=== PATIENT | male | born 1985 | race Caucasian/White ===

== ENCOUNTER 2016-06-29 10:42 | Inpatient (IN) | payer OTHER ==
[~2016-06-29] VITALS: Ht 162.6 cm; Wt 57.0 kg
[~2016-06-29 10:42] MED LIST: ASCO500 PO; CARB100C PO; CLEAPOW6 PO; FISH120014 PO; GEOD80CA PO; KLON2TAB PO; LORA-392 PO; LORA-474 PO; PRIL40CA PO; RANI150T PO; SERT100 PO; SIME1CHW10 CHEW; TAB-TAB PO; TYLE500T PO; [UNRECOGNIZED DRUG - OTHER] PO
[2016-06-29] MEDS ORDERED: LORazepam 2 MG/ML VIAL IM ONE (10:45)
[2016-06-29] MEDS ORDERED: SERT-129 PO (11:11)
[2016-06-29] MEDS ORDERED: GEOD80CA PO (11:11)
[2016-06-29] MEDS ORDERED: ZIPR40 PO (11:11)
[2016-06-29] MEDS ORDERED: MEDR10TA7 PO (11:12)
[2016-06-29 11:15] VITALS: BP 131/63; PULSE 86; RESP 20; TEMP 97.9; O2SAT 98
--- NOTE | 2016-06-29 11:18 | PD ---
HPI Chief Complaint: Psychiatric Symptoms Time Seen by Provider: 11:18 Travel History International Travel<30 days: No Contact w/Intl Traveler<30days: No Traveled to known affect area: No History of Present Illness HPI 31-year-old autistic male brought in under the [place] act after refusing to [facility] the [facility] earlier this morning. Apparently the patient became somewhat agitated and police were called. Patient was given 2 mg of Ativan IM. Patient is seen in [facility]. Patient's baseline is low functioning. Patient has no complaints of pain or other symptoms. Patient is unsure why he is here. He is not suicidal or homicidal. Patient is allergic to cow's milk, peanuts, soy, sulfa, wheat, and yeast extract. PFSH Past Medical History Bipolar Disorder: Yes Anxiety: Yes Depression: Yes Cancer: No Cardiovascular Problems: No Developmental Delay: Yes (autism) Diabetes: No Gastrointestinal Disorders: Yes (GERD) GERD: Yes Headaches: No Neurologic: Yes Psychiatric: Yes (BIPOLAR DISORDER) Immunizations Current: Yes Seizures: No Social History Alcohol Use: No Tobacco Use: No Substance Use: No (Patient denies. ) Allergies-Medications (Allergen,Severity, Reaction): Coded Allergies: Peanut Allergy (Verified Allergy, Severe, 05/26/15) Soy Protein (Verified Allergy, Severe, 05/26/15) Sulfa (Verified Allergy, Severe, 05/26/15) Wheat (Verified Allergy, Severe, 05/26/15) Yeast Extracts (Verified Allergy, Severe, 05/26/15) Uncoded Allergies: Cow's Milk (Allergy, Severe, 10/04/11) Reported Meds & Prescriptions Reported Meds & Active Scripts Active Reported Medroxyprogesterone Acetate 10 Mg Tab 20 Mg PO DAILY Start day 21 Sertraline (Sertraline HCl) 100 Mg Tab 100 Mg PO DAILY Geodon (Ziprasidone) 80 Mg Cap 80 Mg PO DAILY@1600 Geodon (Ziprasidone) 40 Mg Cap 40 Mg PO BID Multivitamin (Multivitamins) 1 Tab Tab 1 Tab PO DAILY Prilosec 40 mg cap (Omeprazole) 40 Mg Cap 40 Mg PO DAILY Klonopin (Clonazepam) 2 Mg Tab 2 Mg PO TID Acetaminophen 500 Mg Tab 500 Mg PO DIRECTED Tylenol Extra Strength 500mg - 2 capsules by mouth every 4-6 hours as needed for headache, fever or pain. If problem persists over 24 hours, call doctor immediately. [id number] N1 3,350 Nf Pow 17 Gm PO 1700 Stir and dissolve 1 capful (17gm) into 8oz cold water by mouth at suppertime for constipation. Gas Relief (Simethicone) 80 Mg Chw 160 Mg CHEW BID Gas Chewable Tabs 80mg - 2 chewables by mouth immediately after lunch and 2 chewables immediately after dinner. Review of Systems ROS Limitations: Clinical Condition, Poor Historian Except as stated in HPI: all other systems reviewed are Neg Physical Exam Narrative GENERAL: Patient appears in no acute distress although somewhat confused and agitated. SKIN: Warm and dry. No signs of trauma. HEAD: Atraumatic. Normocephalic. EYES: Pupils equal and round. No scleral icterus. No injection or drainage. ENT: No nasal bleeding or discharge. Mucous membranes pink and moist. Pharynx is normal. NECK: Trachea midline. No JVD. Neck is supple and nontender. CARDIOVASCULAR: Regular rate and rhythm. No murmurs gallops or rubs. RESPIRATORY: No accessory muscle use. Clear to auscultation. Breath sounds equal bilaterally. MUSCULOSKELETAL: Extremities without clubbing, cyanosis, or edema. No obvious deformities. NEUROLOGICAL: Awake and alert. No obvious cranial nerve deficits. Motor grossly within normal limits. Five out of 5 muscle strength in the arms and legs. Normal speech. PSYCHIATRIC: Appropriate mood and affect; insight and judgment normal. Data Data Last Documented VS Vital Signs Date Time Temp Pulse Resp B/P Pulse Ox O2 Delivery O2 Flow Rate FiO2 06/29/16 11:15 97.9 86 20 131/63 98 Orders Lorazepam Inj (Ativan Inj) (06/29/16 10:45) Diet Regular Basic (06/29/16 Lunch) Psych Screen (06/29/16 11:13) [facility] Medical Decision Making Medical Screen Exam Complete: Yes Emergency Medical Condition: Yes Differential Diagnosis Autism. Agitation. Mood disorder. Narrative Course Patient is medically stable at time of exam. Lab work is not felt necessary for medical clearance for this patient. Psychiatric evaluation recommended. Patient is medically cleared. Diagnosis Primary Impression: Medical clearance for psychiatric admission Additional Impressions: Autism Intermittent explosive disorder Condition: Stable Severo Alford Jun 29, 2016 11:18
[2016-06-29] MEDS ORDERED: HALOPERIDOL LACTATE 5 MG/ML AMP IM STA (12:08)
[2016-06-29 13:00] LABS: AUTOMATED NEUTROPHIL # 6.5 TH/MM3 (1.8-7.7); BASOPHIL % 0.2 % (0.0-2.0); EOSINOPHIL # 0.1 TH/MM3 (0-0.4); EOSINOPHIL % 0.8 % (0.0-4.0); HEMATOCRIT 40.1 % (39.0-51.0); HEMO FLAGS DIFF FINAL; LYMPH % 20.4 % (9.0-44.0); LYMPHOCYTE # 1.9 TH/MM3 (1.0-4.8); MEAN CELL VOLUME 86.6 FL (80.0-100.0); MEAN CORPUSCULAR HEMOGLOBIN 29.6 PG (27.0-34.0); MEAN CORPUSCULAR HGB CONC 34.1 % (32.0-36.0); MONO % 7.1 % (0.0-8.0); NEUT % 71.5 % (16.0-70.0); PLATELET COUNT 169 TH/MM3 (150-450); RED BLOOD COUNT 4.63 MIL/MM3 (4.50-5.90); WHITE BLOOD COUNT 9.1 TH/MM3 (4.0-11.0)
[2016-06-29 13:10] LABS: ALT (GPT) 31 U/L (12-78); ANION GAP 7 MEQ/L (5-15); AST (GOT) 20 U/L (15-37); BICARBONATE 26.3 MEQ/L (21.0-32.0); BLOOD UREA NITROGEN 8 MG/DL (7-18); CHLORIDE 111 MEQ/L (98-107); GLOMERULAR FILTRATION RATE 108 ML/MIN (>89); POTASSIUM 3.6 MEQ/L (3.5-5.1); SODIUM (NA) 144 MEQ/L (136-145)
[2016-06-29 13:12] LABS: ALKALINE PHOSPHATASE 82 U/L (45-117); TOTAL BILIRUBIN ADULT 0.4 MG/DL (0.2-1.0)
[2016-06-29] MEDS ORDERED: diphenhydrAMINE HCL 50 MG CAP PO PRN (13:45)
[2016-06-29] MEDS ORDERED: LORazepam 1 MG TAB PO PRN (13:45)
[2016-06-29] MEDS ORDERED: MAGNESIUM HYDROXIDE SUSP 30 ML CUP PO PRN (13:45)
[2016-06-29] MEDS ORDERED: LORazepam 2 MG/ML VIAL IM PRN (13:45)
[2016-06-29] MEDS: PANTOPRAZOLE SOD 40 MG DELAYED RELEASE TAB PO SCH (14:00)
[2016-06-29] MEDS ORDERED: ACETAMINOPHEN 325 MG TAB PO PRN (14:00)
[2016-06-29] MEDS ORDERED: BENZTROPINE MESYLATE 2 MG/2 ML VIAL IM PRN (14:00)
[2016-06-29] MEDS ORDERED: BENZTROPINE MESYLATE 1 MG TAB PO PRN (14:00)
[2016-06-29] MEDS ORDERED: ALUMINUM/MAGNESIUM/SIMETH 30 ML CUP PO PRN (14:00)
[2016-06-29] MEDS: ZIPRASIDONE HCL 80 MG CAP PO SCH (16:00)
[2016-06-29] MEDS: POLYETHYLENE GLYCOL 17 GM PKG PO SCH (17:00)
[2016-06-29] MEDS: clonazePAM 1 MG TAB PO SCH (18:00)
[2016-06-29 18:07] VITALS: BP 130/86; PULSE 95; RESP 18; TEMP 98.2; O2SAT 95
[2016-06-29] MEDS: ZIPRASIDONE HCL 40 MG CAP PO SCH (20:47)
[2016-06-29] MEDS: SIMETHICONE 80 MG CHEWABLE TAB CHEW SCH (20:47)
[2016-06-30 06:46] VITALS: BP 124/80; PULSE 88; RESP 16; TEMP 94.8; O2SAT 98
[2016-06-30 08:23] LABS: BLOOD, URINE NEG (NEG); COMMENT (UR) CULT NOT INDICATED; CULTURE IF INDICATED CULT NOT INDICATED; GLUCOSE,URINE NEG (NEG); KETONE, URINE NEG (NEG); NITRITE,URINE NEG (NEG); PH, URINE 7.5 (5.0-8.5); URINE COLOR YELLOW (YELLW/STRAW)
[2016-06-30 08:32] LABS: AMPHETAMINE, URINE NEG (NEG); BARBITURATES, URINE NEG (NEG); COCAINE, URINE NEG (NEG)
[2016-06-30 08:33] LABS: HDL CHOLESTEROL 61.1 MG/DL (40.0-60.0); LDL CHOLESTEROL 98 MG/DL (0-99)
[2016-06-30] MEDS: ZIPRASIDONE HCL 40 MG CAP PO SCH (08:58)
[2016-06-30] MEDS: clonazePAM 1 MG TAB PO SCH ×2 (08:58→13:00)
[2016-06-30] MEDS: PANTOPRAZOLE SOD 40 MG DELAYED RELEASE TAB PO SCH (08:59)
[2016-06-30] MEDS: SIMETHICONE 80 MG CHEWABLE TAB CHEW SCH (09:00)
[2016-06-30] MEDS ORDERED: SERTRALINE HCL 100 MG TAB PO SCH (09:00)
[2016-06-30] MEDS ORDERED: MULTIVITAMIN TAB PO SCH (09:00)
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
[2016-06-30 11:30] LABS: HEMOGLOBIN A1b 0.6 %; HEMOGLOBIN Ao 87.8 %; HEMOGLOBIN F 1.5 %; HEMOGLOBIN LA1C 1.6 %; HEMOGLOBIN P3 2.9 %
[2016-06-30] MEDS: ZIPRASIDONE HCL 80 MG CAP PO SCH (16:47)
[2016-06-30] MEDS: POLYETHYLENE GLYCOL 17 GM PKG PO SCH (17:00)
[2016-07-01] MEDS ORDERED: medroxyPROGESTERone ACETATE 10 MG TAB PO SCH (07:00)
== END 2016-06-30 17:35 | disposition home or self-care (01) | DRG 884 ==
LOC: NEDAMB 10:42 → NEDA 13:37 → H270 15:00
PROVIDERS: ADMIT Psychiatry & Neurology Psychiatry; ATTEND Psychiatry & Neurology Psychiatry
DX: F84.0 Autistic disorder (principal); F63.9 Impulse disorder, unspecified; K21.9 Gastro-esophageal reflux disease without esophagitis
CPT/HCPCS: 80053; 80061; 80307; 81001; 83036; 85025; 96372; J1630; J2060

== ENCOUNTER 2017-05-17 19:34 | Inpatient (IN) | payer OTHER ==
[~2017-05-17] VITALS: Ht 165.1 cm; Wt 57.6 kg
[~2017-05-17 19:34] MED LIST changes: -ASCO500 PO; -CARB100C PO; -FISH120014 PO; -LORA-392 PO; -LORA-474 PO; +MEDR10TA7 PO; -RANI150T PO; +SERT-129 PO; -SERT100 PO; +ZIPR40 PO; -[UNRECOGNIZED DRUG - OTHER] PO
[2017-05-17] MEDS ORDERED: LORazepam 2 MG/ML VIAL IM ONE (19:45)
[2017-05-17] MEDS ORDERED: HALOPERIDOL LACTATE 5 MG/ML AMP IM ONE (19:45)
[2017-05-17 19:55] VITALS: BP 120/76; PULSE 86; RESP 18; TEMP 98.4; O2SAT 98
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
[2017-05-17 19:59] LABS: AUTOMATED NEUTROPHIL # 4.4 TH/MM3 (1.8-7.7); BASOPHIL % 0.5 % (0.0-2.0); EOSINOPHIL # 0.8 TH/MM3 (0-0.4); EOSINOPHIL % 8.1 % (0.0-4.0); HEMATOCRIT 45.8 % (39.0-51.0); HEMO FLAGS DIFF FINAL; LYMPH % 38.3 % (9.0-44.0); LYMPHOCYTE # 3.8 TH/MM3 (1.0-4.8); MEAN CELL VOLUME 87.5 FL (80.0-100.0); MEAN CORPUSCULAR HEMOGLOBIN 29.8 PG (27.0-34.0); MONO % 7.8 % (0.0-8.0); NEUT % 45.3 % (16.0-70.0); PLATELET COUNT 249 TH/MM3 (150-450); RED BLOOD COUNT 5.23 MIL/MM3 (4.50-5.90); RED CELL DISTRIBUTION WIDTH 12.9 % (11.6-17.2); WHITE BLOOD COUNT 9.8 TH/MM3 (4.0-11.0)
[2017-05-17 20:16] LABS: ALT (GPT) 29 U/L (12-78)
[2017-05-17 20:18] LABS: ALCOHOL LESS THAN 3 MG/DL (0-5); ANION GAP 7 MEQ/L (5-15); AST (GOT) 38 U/L (15-37); BICARBONATE 24.4 MEQ/L (21.0-32.0); BLOOD UREA NITROGEN 12 MG/DL (7-18); CHLORIDE 108 MEQ/L (98-107); GLOMERULAR FILTRATION RATE 67 ML/MIN (>89); POTASSIUM 4.5 MEQ/L (3.5-5.1); SODIUM (NA) 139 MEQ/L (136-145)
[2017-05-17 20:19] LABS: ALKALINE PHOSPHATASE 110 U/L (45-117); TOTAL BILIRUBIN ADULT 0.5 MG/DL (0.2-1.0)
[2017-05-17] MEDS ORDERED: OMEP40CA2 PO (20:26)
[2017-05-17] MEDS ORDERED: SERO100T PO (20:26)
[2017-05-17] MEDS ORDERED: OLAN10TA11 SL (20:26)
[2017-05-17] MEDS ORDERED: SERT-132 PO (20:26)
[2017-05-17] MEDS ORDERED: POLY17S PO (20:26)
[2017-05-17] MEDS ORDERED: MULT-65 PO (20:26)
[2017-05-17] MEDS ORDERED: CLON2TAB PO (20:26)
[2017-05-17] MEDS ORDERED: MI-A80CH PO (20:26)
[2017-05-17] MEDS ORDERED: MAGNESIUM HYDROXIDE SUSP 30 ML CUP PO PRN (22:15)
[2017-05-17] MEDS ORDERED: ALUMINUM/MAGNESIUM/SIMETH 30 ML CUP PO PRN (22:15)
[2017-05-17] MEDS ORDERED: LORazepam 2 MG/ML VIAL IM PRN (22:15)
[2017-05-17] MEDS ORDERED: ACETAMINOPHEN 325 MG TAB PO PRN (22:15)
[2017-05-17 22:18] VITALS: BP 97/57; PULSE 58; RESP 18; O2SAT 99
[2017-05-17 23:15] VITALS: BP 123/81; PULSE 77; RESP 18; TEMP 98.1; O2SAT 99
[2017-05-18 06:24] VITALS: BP 117/61; PULSE 59; RESP 16; TEMP 97.7; O2SAT 98
[2017-05-18] MEDS: PANTOPRAZOLE SOD 40 MG DELAYED RELEASE TAB PO SCH (08:22)
[2017-05-18] MEDS: MULTIVITAMIN TAB PO SCH (08:22)
[2017-05-18] MEDS: SERTRALINE HCL 50 MG TAB PO SCH (08:23)
[2017-05-18] MEDS: POLYETHYLENE GLYCOL 17 GM PKG PO SCH (08:23)
[2017-05-18] MEDS ORDERED: OLANZapine ODT 10 MG TAB PO SCH (09:00)
[2017-05-18] MEDS ORDERED: clonazePAM 1 MG TAB PO SCH (09:00)
[2017-05-18] MEDS ORDERED: QUEtiapine FUMARATE 100 MG TAB PO SCH (09:00)
[2017-05-18] MEDS: SIMETHICONE 125 MG CHEWABLE TAB PO SCH ×2 (09:00→20:36)
[2017-05-18 10:00] LABS: ANION GAP 7 MEQ/L (5-15); BICARBONATE 25.4 MEQ/L (21.0-32.0); BLOOD UREA NITROGEN 16 MG/DL (7-18); CHLORIDE 107 MEQ/L (98-107); GLOMERULAR FILTRATION RATE 92 ML/MIN (>89); POTASSIUM 3.7 MEQ/L (3.5-5.1); SODIUM (NA) 139 MEQ/L (136-145)
[2017-05-18 10:03] LABS: LDL CHOLESTEROL 86 MG/DL (0-99)
--- NOTE | 2017-05-18 10:40 | PD.TTN ---
Patient Problems 1. Discharge planning 2. Medication compliance 3. Knowledge deficit 4. Lack of coping skills Progress Toward Goals Provider Present: Dr. Ana Grover Provider Input: 05/18 patient is familiar to doctor and in need for stabilization Nurse(s) Input: 05/18 Madelyn patient came [place] [facility] [place] and mother gave input that patient's meds were adjusted and he became aggressive in [place] [facility]. He received an ETO in ER. He is calm today and med compliant so far. Psychiatric Counselors Present: Yuli Blevins LCSW Psych Therapist Input: 05/18 patient has been admitted for outbursts at his [place] [facility] [place] and is showing signs of OCD, Autism and has been Diagnosed with Intermittent Explosive Disorder. Group Spec/RT/OT/GIRALDO Present: ENZO Escalera Group Spec/RT/OT/GIRALDO Input: 05/18 - has not attend groups yet. Discharge Plan Patient is living in a [place] [facility] [place] and is admitted for stabilization and med adjustment and then return to [place] [facility] [place]. Mother provided input to the nurse yesterday. Yuli Blevins LCSW May 18, 2017 10:40
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
--- NOTE | 2017-05-18 13:17 | EKG ---
Date Performed: 05/17/2017 Time Performed: 21:29:01 PTAGE: 32 years EKG: Sinus rhythm POSSIBLE RIGHT VENTRICULAR CONDUCTION DELAY MODERATE ST DEPRESSION Since previous tracing, no signif icant change noted ABNORMAL ECG PREVIOUS TRACING : 04/29/2015 16.17 DOCTOR: Ronnell Fair Interpretating Date/Time 05/18/2017 13:14:44
[2017-05-18] MEDS: clonazePAM 1 MG TAB PO SCH ×2 (15:30→20:00)
[2017-05-18] MEDS: QUEtiapine FUMARATE 100 MG TAB PO SCH (15:30)
[2017-05-18 16:27] LABS: HEMOGLOBIN A1a 0.9 %; HEMOGLOBIN A1b 0.8 %; HEMOGLOBIN Ao 86.3 %; HEMOGLOBIN F 0.7 %; HEMOGLOBIN P3 3.5 %
[2017-05-18 16:35] VITALS: BP 119/60; PULSE 107; RESP 18; TEMP 98.1; O2SAT 98
[2017-05-18] MEDS: QUEtiapine FUMARATE 300 MG TAB PO SCH (20:35)
[2017-05-18] MEDS: LORazepam 1 MG TAB PO PRN (20:41)
[2017-05-19 05:41] VITALS: BP 103/60; PULSE 72; RESP 16; TEMP 98; O2SAT 97
[2017-05-19] MEDS: QUEtiapine FUMARATE 100 MG TAB PO SCH ×3 (06:21→14:37)
[2017-05-19] MEDS: clonazePAM 1 MG TAB PO SCH ×3 (06:22→20:44)
[2017-05-19] MEDS: SIMETHICONE 125 MG CHEWABLE TAB PO SCH ×2 (08:08→20:41)
[2017-05-19] MEDS: MULTIVITAMIN TAB PO SCH (08:08)
[2017-05-19] MEDS: SERTRALINE HCL 50 MG TAB PO SCH (08:09)
[2017-05-19] MEDS: POLYETHYLENE GLYCOL 17 GM PKG PO SCH (08:09)
[2017-05-19] MEDS: PANTOPRAZOLE SOD 40 MG DELAYED RELEASE TAB PO SCH (08:09)
--- NOTE | 2017-05-19 13:37 | HHI.PYPN ---
Subjective Remarks Patient was seen and case discussed with nursing. This is a request for second opinion and admission note was reviewed and I agree with the contents. Patient has a history of autism spectrum disorder and is quite evident he has a cognitive dysfunction. Patient is childlike and perseverative asking multiple questions over and over again. His behavior has markedly improved compared to admission. He is tolerating his medications well. Mental Status Examination Appearance: Appropriate Consciousness: Alert Orientation: Person, Place Motor Activity: Normal gait Speech: Unremarkable Language: Perseveration Attention and Concentration: Adequate Memory: Impaired Mood: Appropriate Affect: Anxious Thought Process & Associations: Loose associations Thought Content: Bizarre thinking, Preoccupations Hallucination Type: None Delusion Type: None Suicidal Ideation: No Suicidal Plan: No Suicidal Intention: No Homicidal Ideation: No Homicidal Plan: No Homicidal Intention: No Insight: Poor Judgment: Poor Results Vitals/IOs Vital Signs Date Time Temp Pulse Resp B/P (MAP) Pulse Ox O2 Delivery O2 Flow Rate FiO2 05/19/17 05:41 98.0 72 16 103/60 (74) 97 05/17/17 22:18 Room Air Assessment & Plan Problem List: (1) Intermittent explosive disorder ICD Codes: F63.81 - Intermittent explosive disorder Status: Acute (2) Autism ICD Codes: F84.0 - Autism Status: Acute Assessment & Plan I agree with the first opinion. Criteria include agitation and aggression before admission Justification for Cont. Inpt. Patient will decompensate in a less restrictive setting Beto Hancock DO May 19, 2017 13:37
[2017-05-19 18:33] VITALS: BP 113/66; PULSE 107; RESP 16; TEMP 98.1; O2SAT 97
[2017-05-19] MEDS: QUEtiapine FUMARATE 300 MG TAB PO SCH (20:41)
[2017-05-19] MEDS: LORazepam 1 MG TAB PO PRN ×2 (22:35→22:41)
[2017-05-20 05:47] VITALS: BP 110/62; PULSE 68; RESP 16; TEMP 97.4; O2SAT 98
[2017-05-20] MEDS: clonazePAM 1 MG TAB PO SCH ×3 (06:09→20:03)
[2017-05-20] MEDS: QUEtiapine FUMARATE 100 MG TAB PO SCH ×3 (06:09→15:23)
[2017-05-20] MEDS: MULTIVITAMIN TAB PO SCH (08:33)
[2017-05-20] MEDS: PANTOPRAZOLE SOD 40 MG DELAYED RELEASE TAB PO SCH (08:33)
[2017-05-20] MEDS: SERTRALINE HCL 50 MG TAB PO SCH (08:33)
[2017-05-20] MEDS: SIMETHICONE 125 MG CHEWABLE TAB PO SCH ×2 (08:33→20:03)
[2017-05-20] MEDS: POLYETHYLENE GLYCOL 17 GM PKG PO SCH (08:33)
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
[2017-05-20 17:04] VITALS: BP 129/66; PULSE 83; RESP 17; TEMP 98.2; O2SAT 97
[2017-05-20] MEDS: QUEtiapine FUMARATE 300 MG TAB PO SCH (20:03)
[2017-05-20] MEDS: LORazepam 1 MG TAB PO PRN (22:17)
[2017-05-21 05:50] VITALS: BP 100/54; PULSE 70; RESP 17; TEMP 97.6; O2SAT 96
[2017-05-21] MEDS: QUEtiapine FUMARATE 100 MG TAB PO SCH ×3 (06:35→16:31)
[2017-05-21] MEDS: clonazePAM 1 MG TAB PO SCH ×3 (06:35→20:00)
[2017-05-21] MEDS: POLYETHYLENE GLYCOL 17 GM PKG PO SCH (08:27)
[2017-05-21] MEDS: PANTOPRAZOLE SOD 40 MG DELAYED RELEASE TAB PO SCH (08:28)
[2017-05-21] MEDS: MULTIVITAMIN TAB PO SCH (08:28)
[2017-05-21] MEDS: SIMETHICONE 125 MG CHEWABLE TAB PO SCH ×2 (08:28→20:09)
[2017-05-21] MEDS: SERTRALINE HCL 50 MG TAB PO SCH (08:28)
--- NOTE | 2017-05-21 09:58 | HHI.PYPN ---
Subjective Remarks Patient seen and examined. Chart reviewed. Case discussed with nursing staff. No behavioral issues noted overnight. Case discussed with counselor who reports that facility will accept the patient home tomorrow, Sunday. On my examination today, patient presents as quite childlike but calm. Denies SI or HI. He does say "I don't like the [place] Act when I'm naughty and not in control." Asking about when he can go back home. Denies side effects from medications. No physical complaints. Review of Systems ROS Limitations: Poor Historian Except as stated in HPI: all other systems reviewed are Neg Mental Status Examination Appearance: Appropriate Consciousness: Alert Orientation: Person, Place Motor Activity: Normal gait Speech: Unremarkable Language: Perseveration (ongoing, likely chronic) Attention and Concentration: Adequate Memory: Impaired Mood: Appropriate Affect: Appropriate Thought Process & Associations: Other (mildly perseverative) Thought Content: Preoccupations Hallucination Type: None Delusion Type: None Suicidal Ideation: No Suicidal Plan: No Suicidal Intention: No Homicidal Ideation: No Homicidal Plan: No Homicidal Intention: No Insight: Poor (likely chronic condition) Judgment: Poor (likely chronic condition) Results Labs labs reviewed. No new labs. Vitals/IOs Vital Signs Date Time Temp Pulse Resp B/P (MAP) Pulse Ox O2 Delivery O2 Flow Rate FiO2 05/21/17 05:50 97.6 70 17 100/54 (69) 96 05/17/17 22:18 Room Air Assessment & Plan Problem List: (1) Intermittent explosive disorder ICD Codes: F63.81 - Intermittent explosive disorder Status: Acute (2) Autism ICD Codes: F84.0 - Autism Status: Acute Assessment & Plan No evidence of significant behavioral disturbance over the weekend. Continue current psychotropics as ordered. Continue to monitor on the inpatient unit. Continue other medications and care as ordered. Justification for Cont. Inpt. Monitoring for impairments in safety, none noted. Discharge Planning Anticipate discharge back to facility tomorrow, Sunday. Request HC Surrog/Guard Advoc?: Yes Perry Grover MD May 21, 2017 09:58
[2017-05-21] MEDS ORDERED: ZIPRASIDONE MESYLATE 20 MG VIAL IM STA (12:12)
[2017-05-21] MEDS ORDERED: diphenhydrAMINE HCL 50 MG/ML VIAL IM STA (12:12)
[2017-05-21] MEDS ORDERED: PILL SPLITTER OTHER PRN (12:45)
[2017-05-21] MEDS: QUEtiapine FUMARATE 300 MG TAB PO SCH (20:00)
[2017-05-22 05:31] VITALS: BP 114/78; PULSE 116; RESP 18; TEMP 98.2; O2SAT 98
[2017-05-22] MEDS: clonazePAM 1 MG TAB PO SCH ×3 (06:41→20:00)
[2017-05-22] MEDS: QUEtiapine FUMARATE 100 MG TAB PO SCH ×3 (08:45→14:46)
[2017-05-22] MEDS: LORazepam 1 MG TAB PO PRN (08:47)
[2017-05-22] MEDS: PANTOPRAZOLE SOD 40 MG DELAYED RELEASE TAB PO SCH (08:47)
[2017-05-22] MEDS: MULTIVITAMIN TAB PO SCH (08:47)
[2017-05-22] MEDS: SIMETHICONE 125 MG CHEWABLE TAB PO SCH ×2 (08:47→20:18)
[2017-05-22] MEDS: SERTRALINE HCL 50 MG TAB PO SCH (08:47)
[2017-05-22] MEDS: POLYETHYLENE GLYCOL 17 GM PKG PO SCH (08:49)
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
[2017-05-22 18:03] VITALS: BP 107/60; PULSE 83; RESP 18; TEMP 98; O2SAT 97
[2017-05-22] MEDS: QUEtiapine FUMARATE 300 MG TAB PO SCH (20:18)
[2017-05-23 05:42] VITALS: BP 144/78; PULSE 80; RESP 18; TEMP 97.3; O2SAT 97
[2017-05-23] MEDS: QUEtiapine FUMARATE 100 MG TAB PO SCH ×3 (06:30→14:46)
[2017-05-23] MEDS: clonazePAM 1 MG TAB PO SCH ×3 (06:30→20:08)
[2017-05-23] MEDS: SERTRALINE HCL 50 MG TAB PO SCH (07:53)
[2017-05-23] MEDS: SIMETHICONE 125 MG CHEWABLE TAB PO SCH ×2 (07:53→20:05)
[2017-05-23] MEDS: MULTIVITAMIN TAB PO SCH (07:53)
[2017-05-23] MEDS: POLYETHYLENE GLYCOL 17 GM PKG PO SCH (07:54)
[2017-05-23] MEDS: PANTOPRAZOLE SOD 40 MG DELAYED RELEASE TAB PO SCH (07:54)
--- NOTE | 2017-05-23 09:53 | HHI.PYPN ---
Subjective Remarks Patient seen and examined with nurse. Chart reviewed. Case discussed with RN. No further behavioral disturbance overnight. Patient remains on 1:1. Case discussed with counselor who reports facility can accept patient back tomorrow, and patient has appointment with outpatient psychiatrist tomorrow as well. On my exam, patient is calm. He remains childlike and asks repetitive questions. No SI/HI. No side effects from medications. No physical complaints. Review of Systems ROS Limitations: Poor Historian Except as stated in HPI: all other systems reviewed are Neg Mental Status Examination Appearance: Appropriate Consciousness: Alert Orientation: Person, Place (at least) Motor Activity: Normal gait Speech: Unremarkable Language: Perseveration (again ongoing, suspect chronic) Attention and Concentration: Adequate Memory: Impaired Mood: Other (Calm) Affect: Other (childlike) Thought Process & Associations: Other (remains somewhat perseverative) Thought Content: Preoccupations Hallucination Type: None Delusion Type: None Suicidal Ideation: No Suicidal Plan: No Suicidal Intention: No Homicidal Ideation: No Homicidal Plan: No Homicidal Intention: No Insight: Poor (likely chronic condition) Judgment: Poor (likely chronic condition) Results Labs Labs reviewed. No new labs. Vitals/IOs Vital Signs Date Time Temp Pulse Resp B/P (MAP) Pulse Ox O2 Delivery O2 Flow Rate FiO2 05/23/17 05:42 97.3 80 18 144/78 (100) 97 Assessment & Plan Problem List: (1) Intermittent explosive disorder ICD Codes: F63.81 - Intermittent explosive disorder Status: Acute (2) Autism ICD Codes: F84.0 - Autism Status: Acute Assessment & Plan Continue current psychotropics as ordered. No indication to adjust psychotropics at this time. Continue to monitor on the inpatient unit. Continue other medications and care as ordered. Justification for Cont. Inpt. Monitoring for impairments in safety, none noted Discharge Planning Anticipate discharge to facility tomorrow with outpatient psychiatric follow-up. Request HC Surrog/Guard Advoc?: Yes Perry Grover MD May 23, 2017 09:53
[2017-05-23] MEDS ORDERED: SERT-132 PO (12:58)
[2017-05-23] MEDS ORDERED: CLON1 PO (12:58)
[2017-05-23] MEDS ORDERED: QUET1TAB8 PO (12:58)
[2017-05-23] MEDS ORDERED: QUET1TAB10 PO (12:58)
[2017-05-23 16:59] VITALS: BP 104/68; PULSE 91; RESP 18; TEMP 98.5; O2SAT 98
[2017-05-23] MEDS: LORazepam 1 MG TAB PO PRN (20:05)
[2017-05-23] MEDS: QUEtiapine FUMARATE 300 MG TAB PO SCH (20:05)
[2017-05-24 05:39] VITALS: BP 111/75; PULSE 98; RESP 16; TEMP 97.7; O2SAT 69
[2017-05-24] MEDS: clonazePAM 1 MG TAB PO SCH (06:23)
[2017-05-24] MEDS: QUEtiapine FUMARATE 100 MG TAB PO SCH ×2 (06:23→12:05)
[2017-05-24 06:48] VITALS: BP 111/75; PULSE 69; RESP 16; TEMP 97.7; O2SAT 98
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
[2017-05-24] MEDS: POLYETHYLENE GLYCOL 17 GM PKG PO SCH (09:00)
[2017-05-24] MEDS: SIMETHICONE 125 MG CHEWABLE TAB PO SCH (09:00)
[2017-05-24] MEDS: SERTRALINE HCL 50 MG TAB PO SCH (09:00)
[2017-05-24] MEDS: MULTIVITAMIN TAB PO SCH (09:00)
[2017-05-24] MEDS: PANTOPRAZOLE SOD 40 MG DELAYED RELEASE TAB PO SCH (09:00)
== END 2017-05-24 14:45 | DRG 883 ==
LOC: NEPJ 19:34 → NEDA 22:01 → H270 05-18
PROVIDERS: ADMIT Psychiatry & Neurology Psychiatry; ATTEND Psychiatry & Neurology Psychiatry
DX: F63.81 Intermittent explosive disorder (principal); F84.0 Autistic disorder; K21.9 Gastro-esophageal reflux disease without esophagitis; Z88.2 Allergy status to sulfonamides; Z91.011 Allergy to milk products; Z91.010 Allergy to peanuts
CPT/HCPCS: 73110; 73130; 80048; 80053; 80061; 80307; 83036; 85025; 93005; 96372; J1200; J1630; J2060; J3486

== ENCOUNTER 2017-07-05 12:14 | Inpatient (IN) | payer OTHER ==
[~2017-07-05] VITALS: Ht 165.1 cm; Wt 57.4 kg
[~2017-07-05 12:14] MED LIST changes: -CLEAPOW6 PO; +CLON1 PO; -GEOD80CA PO; -KLON2TAB PO; -MEDR10TA7 PO; +MI-A80CH PO; +MULT-65 PO; +OMEP40CA2 PO; +POLY17S PO; -PRIL40CA PO; +QUET1TAB10 PO; +QUET1TAB8 PO; -SERT-129 PO; +SERT-132 PO; -SIME1CHW10 CHEW; -TAB-TAB PO; -TYLE500T PO; -ZIPR40 PO
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
[2017-07-05] MEDS ORDERED: HALOPERIDOL LACTATE 5 MG/ML AMP IM ONE (12:30)
[2017-07-05] MEDS ORDERED: LORazepam 2 MG/ML VIAL IM ONE ×2 (12:30→13:30)
[2017-07-05] MEDS ORDERED: diphenhydrAMINE HCL 50 MG/ML VIAL IM ONE (12:30)
[2017-07-05 12:49] LABS: AUTOMATED NEUTROPHIL # 4.3 TH/MM3 (1.8-7.7); BASOPHIL % 0.5 % (0.0-2.0); EOSINOPHIL # 0.7 TH/MM3 (0-0.4); HEMATOCRIT 44.4 % (39.0-51.0); HEMOGLOBIN 15.3 GM/DL (13.0-17.0); LYMPH % 30.9 % (9.0-44.0); LYMPHOCYTE # 2.5 TH/MM3 (1.0-4.8); MEAN CELL VOLUME 86.7 FL (80.0-100.0); MEAN CORPUSCULAR HEMOGLOBIN 29.8 PG (27.0-34.0); MEAN CORPUSCULAR HGB CONC 34.4 % (32.0-36.0); MEAN PLATELET VOLUME 8.7 FL (7.0-11.0); MONO % 7.1 % (0.0-8.0); MONOCYTE # 0.6 TH/MM3 (0-0.9); NEUT % 52.5 % (16.0-70.0); PLATELET COUNT 231 TH/MM3 (150-450); RED BLOOD COUNT 5.11 MIL/MM3 (4.50-5.90); RED CELL DISTRIBUTION WIDTH 12.7 % (11.6-17.2); WHITE BLOOD COUNT 8.1 TH/MM3 (4.0-11.0)
[2017-07-05 12:51] VITALS: BP 144/71; PULSE 89; RESP 16; TEMP 98.7; O2SAT 96
[2017-07-05 13:12] LABS: ALBUMIN 4.4 GM/DL (3.4-5.0); ALT (GPT) 23 U/L (12-78); AST (GOT) 20 U/L (15-37); BICARBONATE 24.5 MEQ/L (21.0-32.0); BLOOD UREA NITROGEN 15 MG/DL (7-18); CALCIUM 8.8 MG/DL (8.5-10.1); CHLORIDE 108 MEQ/L (98-107); CREATININE 1.01 MG/DL (0.60-1.30); GLOMERULAR FILTRATION RATE 85 ML/MIN (>89); GLUCOSE,RANDOM 94 MG/DL (74-106); SODIUM (NA) 141 MEQ/L (136-145)
[2017-07-05 13:14] LABS: ALKALINE PHOSPHATASE 111 U/L (45-117); TOTAL BILIRUBIN ADULT 0.4 MG/DL (0.2-1.0); TOTAL PROTEIN 8.2 GM/DL (6.4-8.2)
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
[2017-07-05 16:28] VITALS: BP 137/68; PULSE 70; RESP 18; O2SAT 98
[2017-07-05 18:19] VITALS: BP 132/70; PULSE 70; RESP 18; O2SAT 98
[2017-07-05 20:09] VITALS: BP 106/56; PULSE 82; RESP 15; TEMP 98.6; O2SAT 95
[2017-07-05] MEDS ORDERED: hydrOXYzine HCL 50 MG TAB PO PRN (22:15)
[2017-07-05] MEDS ORDERED: QUEtiapine FUMARATE 100 MG TAB PO ONE (22:15)
[2017-07-05] MEDS ORDERED: diphenhydrAMINE HCL 50 MG/ML VIAL IM PRN (22:15)
[2017-07-05] MEDS ORDERED: ALUMINUM/MAGNESIUM/SIMETH 30 ML CUP PO PRN (22:15)
[2017-07-05] MEDS ORDERED: diphenhydrAMINE HCL 50 MG/ML VIAL - HS PRN IM (22:15)
[2017-07-05] MEDS ORDERED: clonazePAM 1 MG TAB PO ONE (22:15)
[2017-07-05] MEDS ORDERED: LORazepam 1 MG TAB PO PRN (22:15)
[2017-07-05] MEDS ORDERED: diphenhydrAMINE HCL 50 MG CAP - HS PRN PO (22:15)
[2017-07-05] MEDS ORDERED: MAGNESIUM HYDROXIDE SUSP 30 ML CUP PO PRN (22:15)
[2017-07-05] MEDS ORDERED: ACETAMINOPHEN 325 MG TAB PO PRN (22:15)
[2017-07-05 23:24] VITALS: BP 96/58; PULSE 82; RESP 18; TEMP 97.4; O2SAT 97
[2017-07-06 05:35] VITALS: BP 114/65; PULSE 75; RESP 18; TEMP 97.6; O2SAT 99
[2017-07-06] MEDS ORDERED: QUEtiapine FUMARATE 100 MG TAB PO SCH (07:00)
[2017-07-06] MEDS: PANTOPRAZOLE SOD 40 MG DELAYED RELEASE TAB PO SCH (08:09)
[2017-07-06] MEDS: NICOTINE 21 MG/24 HR PATCH T-DERMAL SCH (08:10)
[2017-07-06] MEDS ORDERED: OLANZapine IM 10 MG VIAL IM ONE ×2 (09:08→09:45)
[2017-07-06 14:33] LABS: BICARBONATE 25.7 MEQ/L (21.0-32.0); BLOOD UREA NITROGEN 14 MG/DL (7-18); CALCIUM 8.8 MG/DL (8.5-10.1); CHLORIDE 106 MEQ/L (98-107); GLOMERULAR FILTRATION RATE 77 ML/MIN (>89); GLUCOSE,RANDOM 87 MG/DL (74-106); SODIUM (NA) 140 MEQ/L (136-145)
[2017-07-06 14:34] LABS: CHOLESTEROL 197 MG/DL (120-200); TRIGLYCERIDES 105 MG/DL (42-150)
[2017-07-06 14:36] LABS: CHOLESTEROL/ HDL RATIO 3.92 RATIO; HDL CHOLESTEROL 50.2 MG/DL (40.0-60.0); LDL CHOLESTEROL 126 MG/DL (0-99)
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
[2017-07-06] MEDS: QUEtiapine FUMARATE 100 MG TAB PO SCH ×2 (15:52→20:13)
[2017-07-06 16:11] LABS: HEMOGLOBIN A1C 5.2 % (4.3-6.0)
[2017-07-06 17:02] VITALS: BP 99/56; PULSE 105; RESP 18; TEMP 98.7; O2SAT 100
--- NOTE | 2017-07-06 17:12 | HHI.HP ---
Provisional Diagnosis Admission Date Jul 05, 2017 at 21:54 [place]. Intermittent explosive disorder, Autism spectrum disorder Certification of Person's Competence To Provide Express and Informed Consent I have personally examined Jose Michelle , a person being served at [facility] on, Jul 06, 2017 17:12. Express and informed consent means consent voluntarily given in writing, by a competent person, after sufficient explanation and disclosure of the subject matter involved to enable the person to make a knowing and willful decision without any element of force, fraud, deceit, duress, or other form of constraint or coercion. This person is 18 years of age or older, is not now known to be incompetent to consent to treatment with a guardian advocate, and does not have a health care surrogate or proxy currently making medical treatment decisions. I have found this person to be one of the following: [] Competent to provide express and informed consent, as defined above, for voluntary admission to this facility and is competent to provide express and informed consent for treatment. He/she has the consistent capacity to make well reasoned, willful, and knowing decisions concerning his or her medical or mental health treatment. The person fully and consistently understands the purpose of the admission for examination/placement and is fully capable of personally exercising all rights [place] [x] Incompetent to provide express and informed consent to voluntary admission, and this is incompetent to provide express and informed consent to treatment. The person must be transferred to involuntary status and a petition for a guardian advocate filed with the Circuit Court. [] Refusing to provide express and informed consent to voluntary admission but is competent to provide express and informed consent for treatment. The person must be discharged or transferred to involuntary status. Form shall be completed within 24 hours of a person's arrival at the receiving facility and filed in the clinical record of each person: 1. Admitted on a voluntary basis 2. Permitted to provide express and informed consent to his/her own treatment 3. Allowed to transfer from involuntary to voluntary status 4. Prior to permitting a person to consent to his or her own treatment after having been previously found incompetent to consent to treatment. History of Present Illness Capacity: Lacks Capacity HPI Patient is a 32 y/o man, single, domiciled in correction, unemployed, past psychiatric history of autism spectrum disorder, intermittent explosive disorder, prior psychiatric admission (last at [facility] in 2016 under the care of Dr. Grover), no prior suicide attempts, history of self injurious behavior when angry who was brought in under BA for violent behavior at doctor' s office, attempting to kcik his doctor and rn transitional care and kicked wall which he was admitted to the inpatient psychiatric unit for further evaluation and management for stabilization. Patient was noted to be agitated in the morning and hitting the wall which he had made a hole in the wall. Patient was given several ETOs for managment of aggression including olanzapine 10mg IM x1, thorazine 50mg IM x 2 (1-2 hours apart) and was able to have more stable mood and behavior thereafter. Patient due to his pervasive developmental delay was not able to provide adequate history. Collateral from patient's mother reported that the patient after his last admission was doing well until recently that he began to be come agitated at the correction and was able to be redirected but continued to have more episodes of agitation and was not able to be redirected during last episode and was brought to the hospital. She states that the patient had something changed recently in his room but also suspects perhaps a medical issue causing his recent agitation. Past psychiatric history: diagnosis of Autism spectrum disorder, intermittent explosive disorder, prior psychiatric admissions, no prior SA, history of aggressive behavior, self injurious behavior during anger outbursts (punching or kicking bee), currently with outpatient psychiatrist Dr. Wagner; recent medication regimen includes quetiapine 150mg PO TID/500mg HS, clonazepam 2mg PO TID Substance use history: none PMH: none Allergies: sulfas, benztropione, depakote, haloperidol, ipratropium, peanut, soy , wheat, yeast, cow's milk Social history: single, unemployed, domiciled at correction Review of Systems Other unable to obtain due to patient being a poor historian. Past Psych History Psychological trauma history unable to obtain due to patient being a poor historian. Violence risk - others (6 mos) elevated to due recent aggressive behavior Violence risk - self (6 mos) elevated due to self injurious behavior when angry (punching and kicking bee) Substance Abuse History Drugs/Alcohol past 12 months None Past Family Social History Coded Allergies: Sulfa (Sulfonamide Antibiotics) (Unverified Allergy, Severe, 07/05/17) Yeast (Unverified Allergy, Severe, 07/05/17) ipratropium (Unverified Allergy, Severe, 07/05/17) peanut (Verified Allergy, Severe, 07/05/17) soy (Unverified Allergy, Severe, 07/05/17) wheat (Unverified Allergy, Severe, 07/05/17) divalproex sodium (Unverified Allergy, Unknown, 07/05/17) benztropine (Verified Adverse Reaction, Mild, 07/05/17) LOW WHITE PLATELET COUNT AND TREMOR haloperidol (Verified Adverse Reaction, Mild, 07/05/17) TREMOR, LOW WHITE PLATELET COUNT Uncoded Allergies: Cow's Milk (Allergy, Severe, 10/04/11) Active Scripts Clonazepam (Klonopin) 1 Mg Tab, 2 MG PO DAILY@0700,1500,2000 for Mental Health for 1 Day, TAB 0 Refills Order is to update med rec only. Prov:Perry Grover MD 05/23/17 Quetiapine (Quetiapine) 300 Mg Tab, 500 MG PO DAILY@2000 for Mental Health for 15 Days, TAB 1 Refill Prov:Perry Grover MD 05/23/17 Quetiapine (Quetiapine) 100 Mg Tab, 150 MG PO DAILY@0700,1200,1500 for Mental Health for 15 Days, TAB 1 Refill Prov:Perry Grover MD 05/23/17 Sertraline (Sertraline) 50 Mg Tab, 50 MG PO DAILY for Mental Health for 15 Days , #15 TAB 1 Refill Prov:Perry Grover MD 05/23/17 Reported Medications Omeprazole (Omeprazole) 40 Mg Cap, 40 MG PO DAILY, #30 CAP 0 Refills 05/17/17 Multiple Vitamin (Multi-Vitamin Daily) 1 Tab Tab, 1 TAB PO DAILY for Nutritional Supplement, TAB 0 Refills 05/17/17 Polyethylene Glycol 3350 Powder (Polyethylene Glycol 3350 Powder) 17 Gram Pow, 17 GM PO DAILY for Constipation, #1 BOTTLE 0 Refills 05/17/17 Simethicone (Mi-Acid Gas Relief) 80 Mg Chw, 160 TAB PO BIDPC 05/17/17 Current Medications Medications (Trade) Dose Ordered Sig/Nadeen Route Start Time Stop Time Status Last Admin (Ativan) 1 mg Q6H PRN PO 07/05/17 22:15 Future hold (Ativan Inj) 1 mg Q6H PRN IM 07/05/17 22:15 Future hold (Atarax) 50 mg Q6H PRN PO 07/05/17 22:15 Future hold (Benadryl) 50 mg Q6H PRN PO 07/05/17 22:15 Future hold (Benadryl Inj) 50 mg Q6H PRN IM 07/05/17 22:15 Future hold (Benadryl) 50 mg HS PRN PO 07/05/17 22:15 Future hold (Benadryl Inj) 50 mg HS PRN IM 07/05/17 22:15 Future hold (Desyrel) 50 mg HS PRN PO 07/05/17 22:15 Future hold (Tylenol) 650 mg Q4H PRN PO 07/05/17 22:15 (Milk Of Magnesia Liq) 30 ml DAILY PRN PO 07/05/17 22:15 (Mag-Al Plus Susp Liq) 30 ml Q6H PRN PO 07/05/17 22:15 (Habitrol 21 Mg Patch.24 Hr) 1 patch DAILY T-DERMAL 07/06/17 09:00 Miscellaneous Information 1 HS T-DERMAL 07/06/17 21:00 (Protonix) 40 mg DAILY PO 07/06/17 09:00 07/06/17 08:09 (SEROquel) 500 mg DAILY@2000 PO 07/06/17 20:00 Future hold (KlonoPIN) 2 mg TID@0700,1500,2000 PO 07/06/17 07:00 Future hold (SEROquel) 150 mg TID@0700,1200,1500 PO 07/06/17 15:30 07/06/17 15:52 Family Psych History unable to obtain due to patient being a poor historian. Social History single, unemployed, domiciled at correction Patient's Strengths (min. 2) verbal and communicative Physical Exam Upon my examination, patient with no gross motor abnormalities, noted with stereotypy movements, noted abrasion to right palm from recent banging on wall, no tremor or EPS, not psychomotor agitation or retardation. Vital Signs Vital Signs Date Time Temp Pulse Resp B/P (MAP) Pulse Ox O2 Delivery O2 Flow Rate FiO2 07/06/17 17:02 98.7 105 18 99/56 (70) 100 07/05/17 20:09 Room Air Lab Results labs reviewed Test 07/06/17 12:43 Blood Urea Nitrogen 14 MG/DL Creatinine 1.10 MG/DL Random Glucose 87 MG/DL Calcium Level 8.8 MG/DL Sodium Level 140 MEQ/L Potassium Level 3.8 MEQ/L Chloride Level 106 MEQ/L Carbon Dioxide Level 25.7 MEQ/L Anion Gap 8 MEQ/L Estimat Glomerular Filtration Rate 77 ML/MIN Triglycerides Level 105 MG/DL Cholesterol Level 197 MG/DL LDL Cholesterol 126 MG/DL HDL Cholesterol 50.2 MG/DL Cholesterol/HDL Ratio 3.92 RATIO Mental Status Examination Appearance: Appropriate, Disheveled Consciousness: Highly Distractible Orientation: Person Motor Activity: Normal gait Speech: Other (loud and yelling at times) Language: Other Fund of Knowledge: Poor Attention and Concentration: Inadequate Memory: Impaired Mood: Irritable Affect: Irritable, Other (agitated) Thought Process & Associations: Other (concrete) Thought Content: Obsessions Hallucination Type: None Delusion Type: None Suicidal Ideation: No Suicidal Plan: No Suicidal Intention: No Homicidal Ideation: No Homicidal Plan: No Homicidal Intention: No Insight: Poor Judgment: Poor Assessment & Plan Problem List: (1) Intermittent explosive disorder ICD Codes: F63.81 - Intermittent explosive disorder Status: Acute (2) Autism ICD Codes: F84.0 - Autism Status: Acute Assessment & Plan Estimated LOS: 3-5 days. Patient is a 32 y/o man who carries a diagnosis of intermittent explosive disorder, autism spectrum disorder who came under BA due to recent aggressive behavior and admitted for stabilization. [place] with recent episode of agitation which patient made hole in the wall with right hand. Xray of RT hand was negative for fracture. ETO administered: olanzapine 10mg IM x 1, thorazine 50mg IM x 2 (given 1-2 hrs apart), EKG with QTc within normal limits, labs showed no abnormalities. Continue quetiapine 150mg TID and 500mg HS and clonazepam 2mg PO TID. Aggressive precautions. Assist patient with ADLs. Discharge planning in progress. Discharge Planning Discharge back to correction when psychiatrically stable. Bulmaro Maher MD Jul 06, 2017 17:12
[2017-07-06] MEDS: clonazePAM 1 MG TAB PO SCH (20:12)
[2017-07-06] MEDS: REMOVE OLD NICOTINE PATCH T-DERMAL SCH (20:13)
[2017-07-07] MEDS: clonazePAM 1 MG TAB PO SCH ×3 (05:51→20:28)
[2017-07-07] MEDS: QUEtiapine FUMARATE 100 MG TAB PO SCH ×4 (05:52→20:28)
[2017-07-07 06:26] VITALS: BP 97/56; PULSE 77; RESP 16; TEMP 98.6; O2SAT 97
[2017-07-07] MEDS: PANTOPRAZOLE SOD 40 MG DELAYED RELEASE TAB PO SCH (07:54)
[2017-07-07] MEDS: NICOTINE 21 MG/24 HR PATCH T-DERMAL SCH (07:55)
[2017-07-07] MEDS ORDERED: LORazepam 2 MG/ML VIAL IM ONE (09:15)
--- NOTE | 2017-07-07 13:04 | PD.PSY.CON ---
Provisional Diagnosis Admission Date Jul 05, 2017 at 21:54 [place] I. Intermittent explosive disorder, Autism spectrum disorder History of Present Illness Service Psychiatry Consult Requested By Psychiatry Reason for Consult Psychiatry Primary Care Physician Non-Staff [facility] Pt seen and idscussed with staff. He was admitted to [facility] on a BA due to aggression at [facility]. He was agitated yesterday and received several ETOs due to extreme aggression. (punched significant hole in wall on unit. X-ray negative for fx). He was agitated and aggressive today and received ETOs and required restraints x 4 hours for safety. Now he is calm and resting in bed. He speaks in a mechanical tone and is perseverative. Past Family Social History Coded Allergies: Sulfa (Sulfonamide Antibiotics) (Unverified Allergy, Severe, 07/05/17) Yeast (Unverified Allergy, Severe, 07/05/17) ipratropium (Unverified Allergy, Severe, 07/05/17) peanut (Verified Allergy, Severe, 07/05/17) soy (Unverified Allergy, Severe, 07/05/17) wheat (Unverified Allergy, Severe, 07/05/17) divalproex sodium (Unverified Allergy, Unknown, 07/05/17) benztropine (Verified Adverse Reaction, Mild, 07/05/17) LOW WHITE PLATELET COUNT AND TREMOR haloperidol (Verified Adverse Reaction, Mild, 07/05/17) TREMOR, LOW WHITE PLATELET COUNT Uncoded Allergies: Cow's Milk (Allergy, Severe, 10/04/11) Active Scripts Clonazepam (Klonopin) 1 Mg Tab, 2 MG PO DAILY@0700,1500,2000 for Mental Health for 1 Day, TAB 0 Refills Order is to update med rec only. Prov:Perry Grover MD 05/23/17 Quetiapine (Quetiapine) 300 Mg Tab, 500 MG PO DAILY@2000 for Mental Health for 15 Days, TAB 1 Refill Prov:Perry Grover MD 05/23/17 Quetiapine (Quetiapine) 100 Mg Tab, 150 MG PO DAILY@0700,1200,1500 for Mental Health for 15 Days, TAB 1 Refill Prov:Perry Grover MD 05/23/17 Sertraline (Sertraline) 50 Mg Tab, 50 MG PO DAILY for Mental Health for 15 Days , #15 TAB 1 Refill Prov:Perry Grover MD 05/23/17 Reported Medications Omeprazole (Omeprazole) 40 Mg Cap, 40 MG PO DAILY, #30 CAP 0 Refills 05/17/17 Multiple Vitamin (Multi-Vitamin Daily) 1 Tab Tab, 1 TAB PO DAILY for Nutritional Supplement, TAB 0 Refills 05/17/17 Polyethylene Glycol 3350 Powder (Polyethylene Glycol 3350 Powder) 17 Gram Pow, 17 GM PO DAILY for Constipation, #1 BOTTLE 0 Refills 05/17/17 Simethicone (Mi-Acid Gas Relief) 80 Mg Chw, 160 TAB PO BIDPC 05/17/17 Current Medications Medications (Trade) Dose Ordered Sig/Nadeen Route Start Time Stop Time Status Last Admin (Ativan) 1 mg Q6H PRN PO 07/05/17 22:15 Future hold (Ativan Inj) 1 mg Q6H PRN IM 07/05/17 22:15 Future hold (Atarax) 50 mg Q6H PRN PO 07/05/17 22:15 Future hold (Benadryl) 50 mg Q6H PRN PO 07/05/17 22:15 Future hold (Benadryl Inj) 50 mg Q6H PRN IM 07/05/17 22:15 Future hold (Benadryl) 50 mg HS PRN PO 07/05/17 22:15 Future hold (Benadryl Inj) 50 mg HS PRN IM 07/05/17 22:15 Future hold (Desyrel) 50 mg HS PRN PO 07/05/17 22:15 Future hold (Tylenol) 650 mg Q4H PRN PO 07/05/17 22:15 (Milk Of Magnesia Liq) 30 ml DAILY PRN PO 07/05/17 22:15 (Mag-Al Plus Susp Liq) 30 ml Q6H PRN PO 07/05/17 22:15 (Habitrol 21 Mg Patch.24 Hr) 1 patch DAILY T-DERMAL 07/06/17 09:00 Miscellaneous Information 1 HS T-DERMAL 07/06/17 21:00 (Protonix) 40 mg DAILY PO 07/06/17 09:00 07/07/17 07:54 (SEROquel) 500 mg DAILY@1999 PO 07/06/17 20:00 Future hold 07/06/17 20:13 (KlonoPIN) 2 mg TID@0700,1500,2000 PO 07/06/17 07:00 Future hold 07/07/17 05:51 (SEROquel) 150 mg TID@0700,1200,1500 PO 07/06/17 15:30 07/07/17 05:52 Social History lives in [facility] Patient's Strengths (min. 2) verbal and communicative Physical Exam Vital Signs Vital Signs Date Time Temp Pulse Resp B/P (MAP) Pulse Ox O2 Delivery O2 Flow Rate FiO2 07/07/17 06:26 98.6 77 16 97/56 (70) 97 07/05/17 20:09 Room Air Mental Status Examination Appearance: Appropriate Consciousness: Alert Orientation: Person Motor Activity: Normal gait Speech: Other (perseverative) Language: Other Fund of Knowledge: Poor Attention and Concentration: Inadequate Memory: Impaired Mood: Irritable Affect: Irritable, Other (agitated) Thought Process & Associations: Other (concrete) Thought Content: Obsessions Hallucination Type: None Delusion Type: None Suicidal Ideation: No Suicidal Plan: No Suicidal Intention: No Homicidal Ideation: No Homicidal Plan: No Homicidal Intention: No Insight: Poor Judgment: Poor Assessment & Plan Problem List: (1) Intermittent explosive disorder ICD Codes: F63.81 - Intermittent explosive disorder Status: Acute (2) Autism ICD Codes: F84.0 - Autism Status: Acute Assessment & Plan Pt meets criteria for involuntary hospitalization due to risks posed by severe aggression. . Estimated LOS: days Taniya Boone MD Jul 07, 2017 13:04
[2017-07-07] MEDS ORDERED: OLANZapine IM 10 MG VIAL IM ONE (18:30)
[2017-07-07] MEDS: REMOVE OLD NICOTINE PATCH T-DERMAL SCH (20:29)
[2017-07-08 05:00] VITALS: PULSE 80
[2017-07-08] MEDS: QUEtiapine FUMARATE 100 MG TAB PO SCH ×4 (06:24→20:03)
[2017-07-08] MEDS: clonazePAM 1 MG TAB PO SCH ×3 (06:24→20:05)
[2017-07-08] MEDS: PANTOPRAZOLE SOD 40 MG DELAYED RELEASE TAB PO SCH (09:00)
[2017-07-08] MEDS: NICOTINE 21 MG/24 HR PATCH T-DERMAL SCH (09:00)
--- NOTE | 2017-07-08 11:41 | HHI.PYPN ---
Subjective Remarks Pt seen and discussed with staff. He has stayed in bed most of morning. He slept well yesterday and has been eating all of meals. No aggression or self injurious behavior. He denies medication side effects and has been compliant. No SI/HI Mental Status Examination Appearance: Appropriate Consciousness: Alert Orientation: Person Motor Activity: Normal gait Speech: Other (perseverative) Language: Perseveration Fund of Knowledge: Poor Attention and Concentration: Easily Distracted Memory: Unremarkable Mood: Irritable Affect: Flat, Other Thought Process & Associations: Other (concrete) Thought Content: Appropriate Hallucination Type: None Delusion Type: None Suicidal Ideation: No Suicidal Plan: No Suicidal Intention: No Homicidal Ideation: No Homicidal Plan: No Homicidal Intention: No Insight: Poor Judgment: Poor Results Vitals/IOs Vital Signs Date Time Temp Pulse Resp B/P (MAP) Pulse Ox O2 Delivery O2 Flow Rate FiO2 07/08/17 05:00 80 07/07/17 06:26 98.6 16 97/56 (70) 97 07/05/17 20:09 Room Air Assessment & Plan Problem List: (1) Intermittent explosive disorder ICD Codes: F63.81 - Intermittent explosive disorder Status: Acute (2) Autism ICD Codes: F84.0 - Autism Status: Acute Assessment & Plan Pt improving. Continue current tx plan. Estimated LOS: days Justification for Cont. Inpt. Monitoring for safety. Risk in safety Taniya Boone MD Jul 08, 2017 11:41
[2017-07-08 17:43] VITALS: BP 118/70; PULSE 68; RESP 16; TEMP 97.9; O2SAT 99
[2017-07-08] MEDS: REMOVE OLD NICOTINE PATCH T-DERMAL SCH (20:05)
[2017-07-09 06:09] VITALS: BP 102/64; PULSE 100; RESP 18; TEMP 97.4; O2SAT 95
[2017-07-09] MEDS: clonazePAM 1 MG TAB PO SCH ×3 (06:17→20:27)
[2017-07-09] MEDS: QUEtiapine FUMARATE 100 MG TAB PO SCH ×4 (06:18→20:28)
[2017-07-09] MEDS: NICOTINE 21 MG/24 HR PATCH T-DERMAL SCH (09:23)
[2017-07-09] MEDS: PANTOPRAZOLE SOD 40 MG DELAYED RELEASE TAB PO SCH (09:23)
--- NOTE | 2017-07-09 16:51 | HHI.PYPN ---
Subjective Remarks Patient seen for follow-up, chart review. Nurse discussion with nursing staff reported the patient denying any suicidal homicidal ideations, noted to be asking a lot of questions, has not needed restraint or ETO for the past 1-2 days. Has been mostly seclusive and sleeping well. Patient found lying in hospital bed with magazines at bedside. Patient states that he is feeling "good " reports sleeping well, no problem with appetite or bowel movement. Patient states that he is going to groups. Denies any physical complaints at this time. Patient feels his medications are helping. Patient denies any perceptual disturbances. Patient noted to be very concrete secondary to his intellectual deficits. Review of Systems Except as stated in HPI: all other systems reviewed are Neg Mental Status Examination Appearance: Appropriate Consciousness: Alert Orientation: Person Motor Activity: Normal gait Speech: Other (perseverative) Language: Perseveration Fund of Knowledge: Poor Attention and Concentration: Easily Distracted Memory: Impaired Mood: Other Affect: Flat, Other Thought Process & Associations: Other (concrete) Thought Content: Preoccupations Hallucination Type: None Delusion Type: None Suicidal Ideation: No Suicidal Plan: No Suicidal Intention: No Homicidal Ideation: No Homicidal Plan: No Homicidal Intention: No Insight: Poor Judgment: Poor Results Vitals/IOs Vital Signs Date Time Temp Pulse Resp B/P (MAP) Pulse Ox O2 Delivery O2 Flow Rate FiO2 07/09/17 06:09 97.4 100 18 102/64 (77) 95 07/05/17 20:09 Room Air Assessment & Plan Problem List: (1) Intermittent explosive disorder ICD Codes: F63.81 - Intermittent explosive disorder Status: Acute (2) Autism ICD Codes: F84.0 - Autism Status: Acute Assessment & Plan Age at this time has not had any behavioral dyscontrol or episodes of aggression for the past 2 days. We'll continue current treatment as patient appears to be responding well. Patient has not needed further ETO so restraints recently. We'll have collateral from patient from mother to assess whether the patient is close to baseline. Discharge planning in progress Justification for Cont. Inpt. At risk for further decompensation if at lower level of care Discharge Planning To discharged back to mother's care upon psychiatric stabilization Bulmaro Maher MD Jul 09, 2017 16:51
[2017-07-09 18:00] VITALS: BP 132/70; PULSE 116; RESP 18; TEMP 100.7; O2SAT 96
[2017-07-09] MEDS: traZODone HCL 50 MG TAB PO PRN (20:27)
[2017-07-09] MEDS: REMOVE OLD NICOTINE PATCH T-DERMAL SCH (20:30)
[2017-07-10 05:21] VITALS: BP 111/62; PULSE 86; RESP 18; TEMP 99; O2SAT 99
[2017-07-10] MEDS: clonazePAM 1 MG TAB PO SCH ×3 (06:31→20:07)
[2017-07-10] MEDS: QUEtiapine FUMARATE 100 MG TAB PO SCH ×4 (06:31→20:08)
[2017-07-10] MEDS: NICOTINE 21 MG/24 HR PATCH T-DERMAL SCH (08:45)
[2017-07-10] MEDS: PANTOPRAZOLE SOD 40 MG DELAYED RELEASE TAB PO SCH (08:46)
--- NOTE | 2017-07-10 11:17 | HHI.PYPN ---
Subjective Remarks Patient seen for follow-up, chart reviewed. Discussion she staff reported the patient has been conversing a time with himself but has been calm and not having any agitation or periods of verbal outbursts recently. Patient was found lying in hospital bed asleep was able to wake up for interview stated that he has been feeling "good" patient very concrete answer secondary to his autism. Patient denies any difficulty with sleep, eating drinking well, no difficulty with bowel movement. Patient agrees to shower today she denies any perceptual disturbances or delusions at this time. Review of Systems Except as stated in HPI: all other systems reviewed are Neg Mental Status Examination Appearance: Appropriate Consciousness: Alert Orientation: Person Motor Activity: Normal gait Speech: Other (perseverative) Language: Perseveration Fund of Knowledge: Poor Attention and Concentration: Easily Distracted Memory: Impaired Mood: Other Affect: Blunt, Other Thought Process & Associations: Other (concrete) Thought Content: Preoccupations Hallucination Type: None Delusion Type: None Suicidal Ideation: No Suicidal Plan: No Suicidal Intention: No Homicidal Ideation: No Homicidal Plan: No Homicidal Intention: No Insight: Poor Judgment: Poor Results Vitals/IOs Vital Signs Date Time Temp Pulse Resp B/P (MAP) Pulse Ox O2 Delivery O2 Flow Rate FiO2 07/10/17 05:21 99.0 86 18 111/62 (78) 99 Assessment & Plan Problem List: (1) Intermittent explosive disorder ICD Codes: F63.81 - Intermittent explosive disorder Status: Acute (2) Autism ICD Codes: F84.0 - Autism Status: Acute Assessment & Plan Patient at this time has not had a behavioral disturbances or bruit behavioral dyscontrol recently has been calm and cooperative with staff. Patient never card any more ETO's recently, compliant with medications. We'll continue to monitor mood and behavior. Continue encouraged patient to maintain personal hygiene continue Mrs. patient with ADLs. Character Artist spoke with patient's mother over the phone provided an update. Discharge planning in progress Justification for Cont. Inpt. At risk for decompensation at lower level of care Discharge Planning Patient is discharged back to mother residence was psychiatrically stable Bulmaro Maher MD Jul 10, 2017 11:17
[2017-07-10 18:27] VITALS: BP 93/51; PULSE 92; RESP 19; TEMP 99.6; O2SAT 98
[2017-07-10] MEDS: REMOVE OLD NICOTINE PATCH T-DERMAL SCH (21:00)
[2017-07-11] MEDS: QUEtiapine FUMARATE 100 MG TAB PO SCH ×4 (06:49→20:33)
[2017-07-11] MEDS: clonazePAM 1 MG TAB PO SCH ×3 (06:49→20:34)
[2017-07-11 07:14] VITALS: BP 104/72; PULSE 102; RESP 18; TEMP 97.3; O2SAT 98
[2017-07-11] MEDS: NICOTINE 21 MG/24 HR PATCH T-DERMAL SCH (09:00)
[2017-07-11] MEDS: PANTOPRAZOLE SOD 40 MG DELAYED RELEASE TAB PO SCH (09:00)
--- NOTE | 2017-07-11 11:45 | HHI.PYPN ---
Subjective Remarks Patient seen for follow-up, chart review. Discussion she staff reported the patient was noted to be threatening towards staff earlier this morning as he was demanding answers to questions and stated to his nurse that he was going to wreck his nose. Patient was also noted to be somewhat irritable last evening as well. Patient was given Atarax 1 earlier this morning due to recent agitated episode. Patient has had less behavioral dyscontrol he continues to be having episodes of agitation due to low frustration tolerance but has not had any physical aggression recently. He states feeling well today physical complaints at this time reports he drinking well with no difficulty a bowel movement. Patient agrees to attend groups and shower today. Patient continues with very concrete thought process secondary to autism spectrum disorder. Review of Systems Except as stated in HPI: all other systems reviewed are Neg Mental Status Examination Appearance: Disheveled Consciousness: Alert Orientation: Person Motor Activity: Normal gait Speech: Other (perseverative) Language: Perseveration Fund of Knowledge: Poor Attention and Concentration: Adequate Memory: Impaired Mood: Other ("good") Affect: Blunt Thought Process & Associations: Other (concrete) Thought Content: Preoccupations Hallucination Type: None Delusion Type: None Suicidal Ideation: No Suicidal Plan: No Suicidal Intention: No Homicidal Ideation: No Homicidal Plan: No Homicidal Intention: No Insight: Poor Judgment: Poor Results Vitals/IOs Vital Signs Date Time Temp Pulse Resp B/P (MAP) Pulse Ox O2 Delivery O2 Flow Rate FiO2 07/11/17 07:14 97.3 102 18 104/72 (83) 98 Assessment & Plan Problem List: (1) Intermittent explosive disorder ICD Codes: F63.81 - Intermittent explosive disorder Status: Acute (2) Autism ICD Codes: F84.0 - Autism Status: Acute Assessment & Plan Patient at this time has not had any physical aggressive behavior but continues with some occasional episodes of agitation with verbal aggression. We will increase quetiapine to 150/200/150 and 500 mg at bedtime. Continue rest of medications. Will order EKG to monitor QTc interval. Continues to encourage patient to maintain personal hygiene and participate in groups and activities. Discharge planning in progress Justification for Cont. Inpt. At risk for further decompensation at lower level of care Discharge Planning Patient return back to his mother's residence when psychiatrically stable Bulmaro Maher MD Jul 11, 2017 11:45
[2017-07-11] MEDS ORDERED: PILL SPLITTER OTHER PRN (12:45)
[2017-07-11] MEDS: QUEtiapine FUMARATE 200 MG TAB PO SCH (12:45)
[2017-07-11 16:57] VITALS: BP 106/66; PULSE 97; RESP 18; TEMP 98.2; O2SAT 98
[2017-07-11] MEDS: REMOVE OLD NICOTINE PATCH T-DERMAL SCH (21:00)
[2017-07-12] MEDS: traZODone HCL 50 MG TAB PO PRN ×2 (00:16→20:29)
[2017-07-12 05:46] VITALS: BP 100/67; PULSE 82; RESP 18; TEMP 97.4; O2SAT 98
[2017-07-12] MEDS: QUEtiapine FUMARATE 100 MG TAB PO SCH ×3 (06:16→20:29)
[2017-07-12] MEDS: clonazePAM 1 MG TAB PO SCH ×3 (06:16→20:29)
[2017-07-12] MEDS: NICOTINE 21 MG/24 HR PATCH T-DERMAL SCH (08:06)
[2017-07-12] MEDS: PANTOPRAZOLE SOD 40 MG DELAYED RELEASE TAB PO SCH (08:06)
[2017-07-12] MEDS: QUEtiapine FUMARATE 200 MG TAB PO SCH (12:11)
[2017-07-12] MEDS ORDERED: OXcarbazepine 300 MG TAB PO SCH (13:00)
--- NOTE | 2017-07-12 14:22 | PD.TTN ---
Patient Problems 1. Discharge planning 2. Medication compliance 3. Knowledge deficit 4. Lack of coping skills Progress Toward Goals Provider Present: Dr. Vahid Maher Provider Input: 07/10/17 patient has had a better day today and yesterday, once more stable he can return to his placement Psychiatric Counselors Present: Yuli Blevins LCSW Psych Therapist Input: 07/10/17 patient has been struggling with impulse and outbursts and in need for ETO over weekend , s/w mother how is engaged in care and POA and once better he can go back to his intermediate where he has been since 2010 Group Spec/RT/OT/GIRALDO Present: Severo Francois, OT Group Spec/RT/OT/GIRALDO Input: unable to tolerate groups Yuli Blevins LCSW Jul 12, 2017 14:22
--- NOTE | 2017-07-12 15:04 | EKG ---
Date Performed: 07/12/2017 Time Performed: 13:28:39 PTAGE: 32 years EKG: Sinus rhythm NORMAL ECG No significant change from prior electrocardiogram. PREVIOUS TRACING : 07/11/2017 12.54 DOCTOR: Berry Newberry Interpretating Date/Time 07/12/2017 15:02:46
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
[2017-07-12 17:49] VITALS: BP 111/63; PULSE 97; RESP 18; TEMP 97.9; O2SAT 97
[2017-07-12] MEDS: REMOVE OLD NICOTINE PATCH T-DERMAL SCH (20:50)
[2017-07-12] MEDS: diphenhydrAMINE HCL 50 MG CAP PO PRN (22:17)
[2017-07-12] MEDS: LORazepam 2 MG/ML VIAL IM PRN (22:40)
--- NOTE | 2017-07-12 22:58 | EKG ---
Date Performed: 07/11/2017 Time Performed: 12:54:29 PTAGE: 32 years EKG: Sinus rhythm NORMAL ECG PREVIOUS TRACING : 05/17/2017 21.29 Since previous tracing, no significant change noted DOCTOR: Agustín Bishop Interpretating Date/Time 07/12/2017 22:57:48
[2017-07-13 05:49] VITALS: BP 112/62; PULSE 80; RESP 16; TEMP 97.4; O2SAT 100
[2017-07-13] MEDS: clonazePAM 1 MG TAB PO SCH ×3 (06:18→20:29)
[2017-07-13] MEDS: QUEtiapine FUMARATE 100 MG TAB PO SCH ×3 (06:19→20:28)
[2017-07-13] MEDS: PANTOPRAZOLE SOD 40 MG DELAYED RELEASE TAB PO SCH (07:59)
[2017-07-13] MEDS: NICOTINE 21 MG/24 HR PATCH T-DERMAL SCH (07:59)
[2017-07-13] MEDS: QUEtiapine FUMARATE 200 MG TAB PO SCH (12:14)
--- NOTE | 2017-07-13 12:37 | HHI.PYPN ---
Subjective Remarks Patient seen for follow-up, chart reviewed. [facility] staff reported the patient had poor sleep last evening and noted to be pacing on his bed but has not had any behavioral disturbances or agitation. Patient was found lying in hospital bed noted to be somnolent as patient had poor sleep last evening. Patient was able to shower yesterday with assistance of nursing staff has not had any behavioral disturbances or agitation. Continue to monitor mood and behavior as well as tolerance to change in regimen. Review of Systems Except as stated in HPI: all other systems reviewed are Neg Mental Status Examination Appearance: Appropriate Consciousness: Somnolent Orientation: Person Motor Activity: Normal gait Speech: Other (perseverative) Language: Perseveration Fund of Knowledge: Poor Attention and Concentration: Adequate Memory: Impaired Mood: Other Affect: Other (noted to be somnolent this morning) Thought Process & Associations: Other (concrete) Thought Content: Preoccupations Hallucination Type: None Delusion Type: None Suicidal Ideation: No Suicidal Plan: No Suicidal Intention: No Homicidal Ideation: No Homicidal Plan: No Homicidal Intention: No Insight: Poor Judgment: Poor Results Vitals/IOs Vital Signs Date Time Temp Pulse Resp B/P (MAP) Pulse Ox O2 Delivery O2 Flow Rate FiO2 07/13/17 05:49 97.4 80 16 112/62 (79) 100 Assessment & Plan Problem List: (1) Intermittent explosive disorder ICD Codes: F63.81 - Intermittent explosive disorder Status: Acute (2) Autism ICD Codes: F84.0 - Autism Status: Acute Assessment & Plan Patient noted to tolerate addition of Thorazine well although noted that last evening patient had difficulty with sleep was pacing. Morning patient was somnolent during interview but later as reported by nursing was up and eating breakfast with no behavioral disturbances or agitation. We'll continue current treatment for now. Continue to monitor mood and behavior. Patient continues to have stable mood with no periods of agitation and aggression patient likely discharge Sunday back to detention. Discharge planning in progress Justification for Cont. Inpt. At risk for further decompensation if at lower level of care Discharge Planning Patient to return back to detention when psychiatrically stable Bulmaro Maher MD Jul 13, 2017 12:37
--- NOTE | 2017-07-13 12:51 | PD.CONS ---
[facility] By [facility]. [facility] Reason for Consult Scratches Primary Care Physician Non-Staff Diagnoses: History of Present Illness The patient is a 32-year-old male with a history of autism who lives in a long-term who is presenting to the hospital with agitation. The patient has been on the psychiatry unit and has been having bouts of agitation. The patient has also been scratching himself and has developed multiple sores on his body secondary to that. Medicine is consulted for concerns of the wounds associated with scratching. The patient was eating lunch in the common room. He denied any pain associated with any of the scratches. He was examined along with a nurse and tech. The nurse mentioned that she got scratched by the patient recently and was on Bactrim for treatment. The patient endorsed some recent constipation. He says he does tend to scratch his skin and was wondering why infections would occur because of that. He had no acute concerns at this time. Review of Systems ROS Limitations: Poor Historian Except as stated in HPI: all other systems reviewed are Neg Past Family Social History Allergies: Coded Allergies: Sulfa (Sulfonamide Antibiotics) (Unverified Allergy, Severe, 07/05/17) Yeast (Unverified Allergy, Severe, 07/05/17) ipratropium (Unverified Allergy, Severe, 07/05/17) peanut (Verified Allergy, Severe, 07/05/17) soy (Unverified Allergy, Severe, 07/05/17) wheat (Unverified Allergy, Severe, 07/05/17) divalproex sodium (Unverified Allergy, Unknown, 07/05/17) benztropine (Verified Adverse Reaction, Mild, 07/05/17) LOW WHITE PLATELET COUNT AND TREMOR haloperidol (Verified Adverse Reaction, Mild, 07/05/17) TREMOR, LOW WHITE PLATELET COUNT Uncoded Allergies: Cow's Milk (Allergy, Severe, 10/04/11) Past Medical History Intermittent explosive disorder Bipolar disorder Autism GERD Active Ordered Medications Current Medications Medications (Trade) Dose Ordered Sig/Nadeen Route Start Time Stop Time Status Last Admin (Ativan) 1 mg Q6H PRN PO 07/05/17 22:15 Future hold (Ativan Inj) 1 mg Q6H PRN IM 07/05/17 22:15 Future hold 07/12/17 22:40 (Atarax) 50 mg Q6H PRN PO 07/05/17 22:15 Future hold 07/11/17 08:14 (Benadryl) 50 mg Q6H PRN PO 07/05/17 22:15 Future hold 07/12/17 22:17 (Benadryl Inj) 50 mg Q6H PRN IM 07/05/17 22:15 Future hold (Benadryl) 50 mg HS PRN PO 07/05/17 22:15 Future hold (Benadryl Inj) 50 mg HS PRN IM 07/05/17 22:15 Future hold (Desyrel) 50 mg HS PRN PO 07/05/17 22:15 Future hold 07/12/17 20:29 (Tylenol) 650 mg Q4H PRN PO 07/05/17 22:15 (Milk Of Magnesia Liq) 30 ml DAILY PRN PO 07/05/17 22:15 07/12/17 13:56 (Mag-Al Plus Susp Liq) 30 ml Q6H PRN PO 07/05/17 22:15 (Habitrol 21 Mg Patch.24 Hr) 1 patch DAILY T-DERMAL 07/06/17 09:00 Miscellaneous Information 1 HS T-DERMAL 07/06/17 21:00 (Protonix) 40 mg DAILY PO 07/06/17 09:00 07/13/17 07:59 (SEROquel) 500 mg DAILY@2000 PO 07/06/17 20:00 Future hold 07/12/17 20:29 (KlonoPIN) 2 mg TID@0700,1500,2000 PO 07/06/17 07:00 Future hold 07/13/17 06:18 (SEROquel) 150 mg BID@0700,1500 PO 07/11/17 15:00 07/13/17 06:19 (SEROquel) 200 mg DAILY@1200 PO 07/11/17 12:45 07/13/17 12:14 (Pill Splitter) 1 ea UNSCH PRN OTHER 07/11/17 12:45 (Thorazine) 25 mg BID@0700,1500 PO 07/12/17 15:00 07/13/17 06:18 (Vibratab) 100 mg Q12HR PO 07/13/17 12:45 UNV Family History Denies pertinent family history. Social History The pt does not drink or smoke. Physical Exam Vital Signs Vital Signs Date Time Temp Pulse Resp B/P (MAP) Pulse Ox O2 Delivery O2 Flow Rate FiO2 07/13/17 05:49 97.4 80 16 112/62 (79) 100 07/12/17 17:49 97.9 97 18 111/63 (79) 97 Physical Exam GENERAL: Resting comfortably. SKIN: Crusted lesion of left neck, mildly tender to palpation. Also with small lesion on scalp. HEAD: Atraumatic. Normocephalic. No temporal or scalp tenderness. EYES: Pupils equal round and reactive. Extraocular motions intact. No scleral icterus. No injection or drainage. ENT: Nose without bleeding, purulent drainage or septal hematoma. Throat without erythema, tonsillar hypertrophy or exudate. Uvula midline. Airway patent. NECK: Trachea midline. No JVD or lymphadenopathy. Supple, nontender, no meningeal signs. CARDIOVASCULAR: Regular rate and rhythm without murmurs, gallops, or rubs. RESPIRATORY: Clear to auscultation. Breath sounds equal bilaterally. No wheezes , rales, or rhonchi. GASTROINTESTINAL: Abdomen soft, non-tender, nondistended. No hepato-splenomegaly , or palpable masses. No guarding. MUSCULOSKELETAL: Extremities without clubbing, cyanosis, or edema. No joint tenderness, effusion, or edema noted. No calf tenderness. Negative Homans sign bilaterally. NEUROLOGICAL: Awake and alert. Cranial nerves II through XII intact. Motor and sensory grossly within normal limits. Five out of 5 muscle strength in all muscle groups. Normal speech. Imaging Last Impressions Hand X-Ray 07/06/17 0000 Signed Impressions: Service Date/Time: Thursday, July 06, 2017 14:07 - CONCLUSION: Unremarkable examination of the right hand. Costa Pichardo MD Foot X-Ray 07/05/17 1242 Signed Impressions: Service Date/Time: June 13:23 - CONCLUSION: Negative limited 2 view trauma study. Modesto Jacobson MD Assessment and Plan Assessment and Plan Neck wound S/t scratching. Concern for possible MRSA infection. - start doxycycline and monitor wounds. - measures to avoid scratching. - check a CBC. Bipolar disorder Calm at this time. - Managed by psychiatry. PPx: Ambulation Discussed Condition With Medicine will sign off on this stable pt. Please reconsult as needed. Modesto Garduno DO Jul 13, 2017 12:51
[2017-07-13 14:18] LABS: AUTOMATED NEUTROPHIL # 4.6 TH/MM3 (1.8-7.7); BASOPHIL % 0.3 % (0.0-2.0); EOSINOPHIL # 0.4 TH/MM3 (0-0.4); EOSINOPHIL % 5.5 % (0.0-4.0); HEMATOCRIT 41.3 % (39.0-51.0); HEMOGLOBIN 14.3 GM/DL (13.0-17.0); LYMPH % 21.1 % (9.0-44.0); LYMPHOCYTE # 1.6 TH/MM3 (1.0-4.8); MEAN CELL VOLUME 87.1 FL (80.0-100.0); MEAN CORPUSCULAR HEMOGLOBIN 30.1 PG (27.0-34.0); MEAN CORPUSCULAR HGB CONC 34.6 % (32.0-36.0); MEAN PLATELET VOLUME 7.9 FL (7.0-11.0); MONOCYTE # 0.8 TH/MM3 (0-0.9); NEUT % 62.1 % (16.0-70.0); PLATELET COUNT 272 TH/MM3 (150-450); RED BLOOD COUNT 4.74 MIL/MM3 (4.50-5.90); RED CELL DISTRIBUTION WIDTH 12.7 % (11.6-17.2); WHITE BLOOD COUNT 7.4 TH/MM3 (4.0-11.0)
[2017-07-13] MEDS: DOXYCYCLINE HYCLATE 100 MG TAB PO SCH ×2 (15:32→20:28)
[2017-07-13] MEDS: DOCUSATE SODIUM 50 MG/SENNA 8.6 MG TAB PO SCH ×2 (15:32→20:27)
[2017-07-13 17:50] VITALS: BP 110/58; PULSE 89; RESP 18; TEMP 97.8; O2SAT 100
[2017-07-13] MEDS: diphenhydrAMINE HCL 50 MG CAP PO PRN (20:28)
[2017-07-13] MEDS: REMOVE OLD NICOTINE PATCH T-DERMAL SCH (20:30)
[2017-07-14 06:02] VITALS: BP 108/62; PULSE 78; RESP 16; TEMP 99.2; O2SAT 97
[2017-07-14] MEDS: QUEtiapine FUMARATE 100 MG TAB PO SCH ×3 (06:22→20:35)
[2017-07-14] MEDS: clonazePAM 1 MG TAB PO SCH ×3 (06:23→20:34)
[2017-07-14] MEDS: PANTOPRAZOLE SOD 40 MG DELAYED RELEASE TAB PO SCH (07:49)
[2017-07-14] MEDS: DOXYCYCLINE HYCLATE 100 MG TAB PO SCH ×2 (07:49→20:34)
[2017-07-14] MEDS: DOCUSATE SODIUM 50 MG/SENNA 8.6 MG TAB PO SCH ×2 (07:49→20:35)
[2017-07-14] MEDS: NICOTINE 21 MG/24 HR PATCH T-DERMAL SCH (07:52)
[2017-07-14] MEDS: NEOMYCIN/POLYMYXIN/BACITRACIN OINT 15 GM TUBE TOPICAL SCH (11:30)
[2017-07-14] MEDS: QUEtiapine FUMARATE 200 MG TAB PO SCH (11:44)
--- NOTE | 2017-07-14 14:03 | HHI.PYPN ---
Subjective Remarks Patient was seen and case discussed with nursing. Patient remains childlike with cognitive deficits. No aggressive behavior today no agitation. He is compliant with his medications. Remains perseverative on minutia Mental Status Examination Appearance: Appropriate Consciousness: Somnolent Orientation: Person Motor Activity: Normal gait Speech: Other (perseverative) Language: Perseveration Fund of Knowledge: Poor Attention and Concentration: Adequate Memory: Impaired Mood: Other Affect: Other (noted to be somnolent this morning) Thought Process & Associations: Other (concrete) Thought Content: Preoccupations Hallucination Type: None Delusion Type: None Suicidal Ideation: No Suicidal Plan: No Suicidal Intention: No Homicidal Ideation: No Homicidal Plan: No Homicidal Intention: No Insight: Poor Judgment: Poor Results Vitals/IOs Vital Signs Date Time Temp Pulse Resp B/P (MAP) Pulse Ox O2 Delivery O2 Flow Rate FiO2 07/14/17 06:02 99.2 78 16 108/62 (77) 97 Assessment & Plan Problem List: (1) Intermittent explosive disorder ICD Codes: F63.81 - Intermittent explosive disorder Status: Acute (2) Autism ICD Codes: F84.0 - Autism Status: Acute Assessment & Plan Continue current treatment plan Justification for Cont. Inpt. Patient will decompensate in a less restrictive setting Beto Hancock DO Jul 14, 2017 14:03
[2017-07-14 18:15] VITALS: BP 99/61; PULSE 93; RESP 18; TEMP 98.1; O2SAT 97
[2017-07-14] MEDS: traZODone HCL 50 MG TAB PO PRN (20:35)
[2017-07-14] MEDS: diphenhydrAMINE HCL 50 MG CAP PO PRN (20:35)
[2017-07-14] MEDS: REMOVE OLD NICOTINE PATCH T-DERMAL SCH (20:35)
[2017-07-15 05:48] VITALS: BP 95/64; PULSE 91; RESP 17; TEMP 97.1; O2SAT 96
[2017-07-15] MEDS: clonazePAM 1 MG TAB PO SCH ×3 (06:02→20:31)
[2017-07-15] MEDS: QUEtiapine FUMARATE 100 MG TAB PO SCH ×3 (06:02→20:27)
[2017-07-15] MEDS: NICOTINE 21 MG/24 HR PATCH T-DERMAL SCH (09:00)
[2017-07-15] MEDS: NEOMYCIN/POLYMYXIN/BACITRACIN OINT 15 GM TUBE TOPICAL SCH (09:00)
[2017-07-15] MEDS: PANTOPRAZOLE SOD 40 MG DELAYED RELEASE TAB PO SCH (09:36)
[2017-07-15] MEDS: DOXYCYCLINE HYCLATE 100 MG TAB PO SCH ×2 (09:36→20:27)
[2017-07-15] MEDS: DOCUSATE SODIUM 50 MG/SENNA 8.6 MG TAB PO SCH ×2 (09:36→20:28)
[2017-07-15] MEDS: QUEtiapine FUMARATE 200 MG TAB PO SCH (12:25)
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
[2017-07-15] MEDS: LORazepam 2 MG/ML VIAL IM PRN (16:50)
[2017-07-15] MEDS: traZODone HCL 50 MG TAB PO PRN (20:27)
[2017-07-15] MEDS: REMOVE OLD NICOTINE PATCH T-DERMAL SCH (21:00)
[2017-07-16 05:48] VITALS: BP 99/67; PULSE 88; RESP 18; TEMP 97.6; O2SAT 98
[2017-07-16] MEDS: QUEtiapine FUMARATE 100 MG TAB PO SCH ×3 (06:21→19:51)
[2017-07-16] MEDS: clonazePAM 1 MG TAB PO SCH ×3 (06:21→19:51)
[2017-07-16] MEDS: PANTOPRAZOLE SOD 40 MG DELAYED RELEASE TAB PO SCH (09:00)
[2017-07-16] MEDS: DOCUSATE SODIUM 50 MG/SENNA 8.6 MG TAB PO SCH ×2 (09:00→20:25)
[2017-07-16] MEDS: NICOTINE 21 MG/24 HR PATCH T-DERMAL SCH (09:00)
[2017-07-16] MEDS: DOXYCYCLINE HYCLATE 100 MG TAB PO SCH ×2 (09:00→20:25)
[2017-07-16] MEDS: NEOMYCIN/POLYMYXIN/BACITRACIN OINT 15 GM TUBE TOPICAL SCH (09:00)
[2017-07-16] MEDS: QUEtiapine FUMARATE 200 MG TAB PO SCH (12:00)
[2017-07-16 16:44] VITALS: BP 101/59; PULSE 68; RESP 18; TEMP 98.6
[2017-07-16 17:05] VITALS: BP 101/59; PULSE 68; RESP 18; TEMP 98.6; O2SAT 99
[2017-07-16] MEDS: REMOVE OLD NICOTINE PATCH T-DERMAL SCH (20:40)
--- NOTE | 2017-07-16 22:23 | HHI.PYPN ---
Subjective Remarks Patient seen for follow up; chart reviewed. Discussion with nursing staff reported that the patient had required ETO last evening due to having been verbally threatening to staff but no physical aggressive behavior. Patient was found in his room stacking his magazines, noted to have recently showered, calm and cooperative. Patient denies any physical complaints, states eating and drinking well, no difficutly with bowel movements. He is perseverative on when he will go home but was calm throughout interview. He has showered today. Review of Systems Except as stated in HPI: all other systems reviewed are Neg Mental Status Examination Appearance: Appropriate Consciousness: Somnolent Orientation: Person Motor Activity: Normal gait Speech: Other (perseverative) Language: Perseveration Fund of Knowledge: Poor Attention and Concentration: Adequate Memory: Impaired Mood: Other Affect: Irritable, Other (noted to be somnolent this morning) Thought Process & Associations: Other (concrete) Thought Content: Preoccupations (When rob) Hallucination Type: None Delusion Type: None Suicidal Ideation: No Suicidal Plan: No Suicidal Intention: No Homicidal Ideation: No Homicidal Plan: No Homicidal Intention: No Insight: Poor Judgment: Poor Results Vitals/IOs Vital Signs Date Time Temp Pulse Resp B/P (MAP) Pulse Ox O2 Delivery O2 Flow Rate FiO2 07/16/17 17:05 98.6 68 18 101/59 (73) 99 Assessment & Plan Problem List: (1) Intermittent explosive disorder ICD Codes: F63.81 - Intermittent explosive disorder Status: Acute (2) Autism ICD Codes: F84.0 - Autism Status: Acute Assessment & Plan Patient had recent episode of veral agression which he required ETO yesterday. No current behavioral dycontrol since. Rob increaes thorazine to 50mg PO BID, contnue rest of medicaitons, continue to monitor mood and behavior. ishlui planning in progress. Justification for Cont. Inpt. At risk for further decompensation at lower level of care [facility]charge Planning [facility] Bulmaro Maher MD Jul 16, 2017 22:23
[2017-07-17 06:02] VITALS: BP 124/76; PULSE 87; RESP 18; TEMP 98.2; O2SAT 98
[2017-07-17] MEDS: clonazePAM 1 MG TAB PO SCH ×2 (06:09→15:00)
[2017-07-17] MEDS: QUEtiapine FUMARATE 100 MG TAB PO SCH ×2 (06:10→15:00)
[2017-07-17] MEDS: NEOMYCIN/POLYMYXIN/BACITRACIN OINT 15 GM TUBE TOPICAL SCH (08:14)
[2017-07-17] MEDS: DOXYCYCLINE HYCLATE 100 MG TAB PO SCH (08:14)
[2017-07-17] MEDS: NICOTINE 21 MG/24 HR PATCH T-DERMAL SCH (08:14)
[2017-07-17] MEDS: DOCUSATE SODIUM 50 MG/SENNA 8.6 MG TAB PO SCH (08:14)
[2017-07-17] MEDS: PANTOPRAZOLE SOD 40 MG DELAYED RELEASE TAB PO SCH (08:14)
[2017-07-17 11:24] LABS: AUTOMATED NEUTROPHIL # 16.8 TH/MM3 (1.8-7.7); BASOPHIL % 0.1 % (0.0-2.0); EOSINOPHIL % 0.2 % (0.0-4.0); HEMATOCRIT 38.5 % (39.0-51.0); HEMOGLOBIN 13.6 GM/DL (13.0-17.0); LYMPH % 4.9 % (9.0-44.0); MEAN CELL VOLUME 85.3 FL (80.0-100.0); MEAN CORPUSCULAR HEMOGLOBIN 30.2 PG (27.0-34.0); MEAN CORPUSCULAR HGB CONC 35.4 % (32.0-36.0); MEAN PLATELET VOLUME 7.5 FL (7.0-11.0); MONOCYTE # 1.5 TH/MM3 (0-0.9); NEUT % 86.8 % (16.0-70.0); PLATELET COUNT 317 TH/MM3 (150-450); RED BLOOD COUNT 4.51 MIL/MM3 (4.50-5.90); RED CELL DISTRIBUTION WIDTH 12.3 % (11.6-17.2); WHITE BLOOD COUNT 19.4 TH/MM3 (4.0-11.0)
[2017-07-17 11:47] LABS: BICARBONATE 28.2 MEQ/L (21.0-32.0); CREATININE 1.01 MG/DL (0.60-1.30)
[2017-07-17] MEDS: QUEtiapine FUMARATE 200 MG TAB PO SCH (12:00)
[2017-07-17] MEDS ORDERED: PERI PO (12:21)
[2017-07-17] MEDS ORDERED: QUET1TAB9 PO (12:21)
[2017-07-17] MEDS ORDERED: QUET1TAB8 PO ×2 (12:21)
[2017-07-17] MEDS ORDERED: PANT40TA3 PO (12:21)
[2017-07-17] MEDS ORDERED: TRIPOIN TOPICAL (12:21)
[2017-07-17] MEDS ORDERED: chlorproMAZINE PO (12:21)
[2017-07-17] MEDS ORDERED: DOXY100T PO (12:21)
[2017-07-17] MEDS ORDERED: CLON2TAB PO (12:21)
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
== END 2017-07-17 17:58 | disposition home or self-care (01) | DRG 883 ==
LOC: NEPC 12:14 → NEDA 21:54 → H270 23:12
PROVIDERS: ADMIT Student in an Organized Health Care Education/Training Program; ATTEND Student in an Organized Health Care Education/Training Program
DX: F63.81 Intermittent explosive disorder (principal); F84.0 Autistic disorder; F79 Unspecified intellectual disabilities; K21.9 Gastro-esophageal reflux disease without esophagitis; K59.00 Constipation, unspecified; F42.9 Obsessive-compulsive disorder, unspecified; S10.91XA Abrasion of unspecified part of neck, initial encounter; S00.01XA Abrasion of scalp, initial encounter; Z78.1 Physical restraint status; Z88.2 Allergy status to sulfonamides; Z91.010 Allergy to peanuts; Z91.011 Allergy to milk products; Z91.5 Personal history of self-harm
CPT/HCPCS: 73130; 73620; 80048; 80053; 80061; 82550; 82552; 83036; 85025; 93005; 96372; J1200; J2060; J3230; Q0163

== ENCOUNTER 2017-07-18 09:32 | Inpatient (IN) | payer OTHER ==
[~2017-07-18 09:32] MED LIST changes: -CLON1 PO; +CLON2TAB PO; +DOXY100T PO; -MI-A80CH PO; +PANT40TA3 PO; +PERI PO; -POLY17S PO; -QUET1TAB10 PO; +QUET1TAB9 PO; -SERT-132 PO; +TRIPOIN TOPICAL; +chlorproMAZINE PO
[2017-07-18] MEDS ORDERED: MAGNESIUM HYDROXIDE SUSP 30 ML CUP PO PRN (10:00)
[2017-07-18] MEDS ORDERED: ALUMINUM/MAGNESIUM/SIMETH 30 ML CUP PO PRN (10:00)
[2017-07-18] MEDS ORDERED: LORazepam 2 MG/ML VIAL IM PRN (10:00)
[2017-07-18 10:05] VITALS: BP 99/57; PULSE 101; RESP 16; TEMP 98.9; O2SAT 96
[2017-07-18] MEDS: PANTOPRAZOLE SOD 40 MG DELAYED RELEASE TAB PO SCH (12:00)
[2017-07-18] MEDS ORDERED: hydrOXYzine HCL 50 MG TAB PO PRN (12:00)
--- NOTE | 2017-07-18 12:19 | PD ---
HPI Chief Complaint: Psychiatric Symptoms Time Seen by Provider: 12:14 Travel History International Travel<30 days: No Contact w/Intl Traveler<30days: No Traveled to known affect area: No History of Present Illness HPI Patient comes emergency Department under [place] act by police for allegedly making homicidal and suicidal statements. Patient denies any homicidal or suicidal ideations. Patient states that he just asked the caregiver about getting to [facility]. Patient denies any medical complaints at this time. Denies any chest pain, shortness of breath, fevers, nausea, vomiting, abdominal pain. Patient was just released from the hospital psychiatric unit yesterday after being evaluated by psych department. Denies any pain or radiation of pain. Denies anything making symptoms better or worse. PFSH Past Medical History Arthritis: No Asthma: No Autoimmune Disease: No Bipolar Disorder: Yes Anxiety: Yes Depression: Yes Heart Rhythm Problems: No Cancer: No Cardiovascular Problems: No Chemotherapy: No Chest Pain: No Congestive Heart Failure: No COPD: No Cerebrovascular Accident: No Developmental Delay: Yes (autism, INTELLECTUAL DISABILITY) Diabetes: No Endocrine: No Gastrointestinal Disorders: Yes (CONSTIPATION, REFLUX, GASTRITIS, MILD ESOPHAGITIS) GERD: Yes Genitourinary: No Headaches: No Hiatal Hernia: Yes Heparin Induced Thrombocytopen: No Hypertension: No Immune Disorder: No Implanted Vascular Access Dvce: No Kidney Stones: No Musculoskeletal: No Neurologic: Yes Psychiatric: Yes (Intermittent Explosive and Autism) Reproductive: No Respiratory: No Immunizations Current: Yes Migraines: No Radiation Therapy: No Renal Failure: No Schizophrenia: Yes Seizures: No Sickle Cell Disease: No Sleep Apnea: No Thyroid Disease: No Ulcer: No ?: Not Past Surgical History Abdominal Surgery: No AICD: No Arteriovenous Shunt: No Cardiac Surgery: No Ear Surgery: No Endocrine Surgery: No Eye Surgery: No Genitourinary Surgery: No Gynecologic Surgery: No Insulin Pump: No Joint Replacement: No Neurologic Surgery: No Pacemaker: No Thoracic Surgery: No Social History Alcohol Use: No Tobacco Use: No Substance Use: No Allergies-Medications (Allergen,Severity, Reaction): Coded Allergies: Sulfa (Sulfonamide Antibiotics) (Unverified Allergy, Severe, 07/05/17) Yeast (Unverified Allergy, Severe, 07/05/17) ipratropium (Unverified Allergy, Severe, 07/05/17) peanut (Verified Allergy, Severe, 07/05/17) soy (Unverified Allergy, Severe, 07/05/17) wheat (Unverified Allergy, Severe, 07/05/17) divalproex sodium (Unverified Allergy, Unknown, 07/05/17) benztropine (Verified Adverse Reaction, Mild, 07/05/17) LOW WHITE PLATELET COUNT AND TREMOR haloperidol (Verified Adverse Reaction, Mild, 07/05/17) TREMOR, LOW WHITE PLATELET COUNT Uncoded Allergies: Cow's Milk (Allergy, Severe, 10/04/11) Reported Meds & Prescriptions Reported Meds & Active Scripts Active Triple Antibiotic 3.5-400-5000 (Cumljiyo-Ngngrjizhx-Xlimvyksq) 3.5 Mg-400 Unit-5 ,000 Unit/Gram Oin 1 Applic TOPICAL DAILY 30 Days Pantoprazole (Pantoprazole Sodium) 40 Mg Tab 40 Mg PO DAILY 30 Days Gnp Senna Plus 8.6-50 mg (Sennosides-Docusate Sodium) 8.6 Mg-50 Mg Tab 1 Tab PO BID 30 Days Quetiapine (Quetiapine Fumarate) 100 Mg Tab 500 Mg PO DAILY@2000 30 Days Quetiapine (Quetiapine Fumarate) 200 Mg Tab 200 Mg PO DAILY@1200 30 Days Quetiapine (Quetiapine Fumarate) 100 Mg Tab 150 Mg PO BID@0700,1500 30 Days [chlorproMAZINE] 50 MG Tab 50 Mg PO BID@0700,1500 30 Days Doxycycline Hyclate 100 Mg Tab 100 Mg PO Q12HR 4 Days Clonazepam 2 Mg Tab 2 Mg PO TID@0700,1500,2000 30 Days Reported Omeprazole 40 Mg Cap 40 Mg PO DAILY Multi-Vitamin Daily (Multiple Vitamin) 1 Tab Tab 1 Tab PO DAILY Review of Systems Except as stated in HPI: all other systems reviewed are Neg Physical Exam Narrative GENERAL: Well-developed, well nourished, in no acute distress, and non-ill appearing. SKIN: Focused skin assessment warm and dry. HEAD: Atraumatic. Normocephalic. EYES: Pupils equal and round. EOMI. No scleral icterus. No injection or drainage. ENT: No nasal bleeding or discharge. Mucous membranes pink and moist. NECK: Trachea midline. Supple. No nuclear rigidity. CARDIOVASCULAR: Regular rate and rhythm. No murmur appreciated. RESPIRATORY: No accessory muscle use. No respiratory distress. Clear to auscultation. Breath sounds equal bilaterally. MUSCULOSKELETAL: No obvious deformities. No clubbing. No cyanosis. No edema. Full range of motion. NEUROLOGICAL: Awake and alert. No obvious cranial nerve deficits. Motor grossly within normal limits. Normal speech. PSYCHIATRIC: Patient making random statements. Data Data Orders Orders Admit Order (Ed Use Only) (07/18/17 09:57) Admit To Inpatient Psych (07/18/17 ) Vital Signs (Adult) [id number] (07/18/17 09:57) Activity Oob Ad Christy (07/18/17 09:57) Level Of Observation (Psych) (07/18/17 09:57) Aims-Abnormal Invol Move Scale ONCE (07/18/17 09:57) Lorazepam (Ativan) (07/18/17 10:00) Lorazepam Inj (Ativan Inj) (07/18/17 10:00) Acetaminophen (Tylenol) (07/18/17 11:00) Magnesium Hydroxide Liq (Milk Of Magnesi (07/18/17 10:00) Al-Mag Hy-Si 40-40-4 Mg/Ml Liq (Mag-Al P (07/18/17 10:00) Hydroxyzine Hcl (Atarax) (07/18/17 12:00) Complete Blood Count With Diff (07/19/17 06:00) Consult Hospitalist (07/18/17 ) Electrocardiogram (07/19/17 ) MDM Medical Decision Making Medical Screen Exam Complete: Yes Emergency Medical Condition: Yes Differential Diagnosis Homicidal, suicidal, depression, nonspecific mood disorder Narrative Course Patient was seen and examined. Patient was just released from the hospital yesterday no need for additional laboratory studies at this time. Patient medically cleared for further treatment and evaluation by psych. Final disposition per psych. Diagnosis Primary Impression: Medical clearance for psychiatric admission Condition: Stable Miki Montero Jul 18, 2017 12:19
--- NOTE | 2017-07-18 18:16 | PD.CONS ---
HPI Service [facility] Hospitalists Consult Requested By Dr. Chung Reason for Consult Elevated WBC count Primary Care Physician Non-Staff Diagnoses: (1) Autism (2) Elevated WBC count History of Present Illness 32-year old male with PMH significant for Autism, intermittent explosive disorder, bipolar disorder, and GERD. Patient was recently discharged back to assisted yesterday where he resides and shortly after arriving was sent back to [facility] for psychiatric evaluation. Patient apparently questioned caretakers about heaven and this raised concerns for suicidal ideation. Police department was called and patient was [place] acted and brought back to [facility] for evaluation. Medical team has been consulted due to elevated WBC count. Patient was seen by medical team during his last stay in psychiatry due to multiple skin lesions and scratches. He was started on Doxycycline for lesions. Patient is seen and examined in his room with staff at bedside. He is awake and alert, child like. He denies any fevers, chills, nausea, vomiting, diarrhea, constipation, abdominal pain, chest pain, SOB, headache, sore throat, or cough. He does repot pain with urination and states "it makes me pee on the floor" . Review of Systems ROS Limitations: Other (Autims) Except as stated in HPI: all other systems reviewed are Neg Past Family Social History Allergies: Coded Allergies: Sulfa (Sulfonamide Antibiotics) (Unverified Allergy, Severe, 07/05/17) Yeast (Unverified Allergy, Severe, 07/05/17) ipratropium (Unverified Allergy, Severe, 07/05/17) peanut (Verified Allergy, Severe, 07/05/17) soy (Unverified Allergy, Severe, 07/05/17) wheat (Unverified Allergy, Severe, 07/05/17) divalproex sodium (Unverified Allergy, Unknown, 07/05/17) benztropine (Verified Adverse Reaction, Mild, 07/05/17) LOW WHITE PLATELET COUNT AND TREMOR haloperidol (Verified Adverse Reaction, Mild, 07/05/17) TREMOR, LOW WHITE PLATELET COUNT Uncoded Allergies: Cow's Milk (Allergy, Severe, 10/04/11) Past Medical History Intermittent explosive disorder Bipolar disorder Autism GERD Past Surgical History Denies Reported Medications Reported Meds & Active Scripts Active Triple Antibiotic 3.5-400-5000 (Tkvradob-Iszxrbxtlr-Ubhiaavpp) 3.5 Mg-400 Unit-5 ,000 Unit/Gram Oin 1 Applic TOPICAL DAILY 30 Days Pantoprazole (Pantoprazole Sodium) 40 Mg Tab 40 Mg PO DAILY 30 Days Gnp Senna Plus 8.6-50 mg (Sennosides-Docusate Sodium) 8.6 Mg-50 Mg Tab 1 Tab PO BID 30 Days Quetiapine (Quetiapine Fumarate) 100 Mg Tab 500 Mg PO DAILY@1999 30 Days Quetiapine (Quetiapine Fumarate) 200 Mg Tab 200 Mg PO DAILY@1200 30 Days Quetiapine (Quetiapine Fumarate) 100 Mg Tab 150 Mg PO BID@0700,1500 30 Days [chlorproMAZINE] 50 MG Tab 50 Mg PO BID@0700,1500 30 Days Doxycycline Hyclate 100 Mg Tab 100 Mg PO Q12HR 4 Days Clonazepam 2 Mg Tab 2 Mg PO TID@0700,1500,1999 30 Days Reported Omeprazole 40 Mg Cap 40 Mg PO DAILY Multi-Vitamin Daily (Multiple Vitamin) 1 Tab Tab 1 Tab PO DAILY Active Ordered Medications Current Medications Medications (Trade) Dose Ordered Sig/Nadeen Route Start Time Stop Time Status Last Admin (Ativan) 1 mg Q6H PRN PO 07/18/17 10:00 (Ativan Inj) 1 mg Q6H PRN IM 07/18/17 10:00 (Tylenol) 650 mg Q4H PRN PO 07/18/17 11:00 (Milk Of Magnesia Liq) 30 ml DAILY PRN PO 07/18/17 10:00 (Mag-Al Plus Susp Liq) 30 ml Q6H PRN PO 07/18/17 10:00 (Atarax) 50 mg Q6H PRN PO 07/18/17 12:00 (KlonoPIN) 2 mg TID@0700,1500,1999 PO 07/18/17 15:00 (Vibratab) 100 mg Q12HR PO 07/18/17 21:00 (SEROquel) 150 mg BID@0700,1500 PO 07/18/17 15:00 (SEROquel) 500 mg DAILY@1999 PO 07/18/17 20:00 (SEROquel) 200 mg DAILY@1200 PO 07/19/17 12:00 (Michaela-Colace) 1 tab BID PO 07/18/17 21:00 (Protonix) 40 mg DAILY PO 07/18/17 12:00 Family History Denies Social History Lives in assisted Physical Exam Vital Signs Vital Signs Date Time Temp Pulse Resp B/P (MAP) Pulse Ox O2 Delivery O2 Flow Rate FiO2 07/18/17 16:53 07/18/17 10:05 98.9 101 16 99/57 (71) 96 Room Air Physical Exam GENERAL: This is a well-nourished, well-developed patient, in no apparent distress, child like demeanor. SKIN: Base of neck erythematous area noted along trimmed back hair. Right hand palm aspect with dry eschar, mild redness, no drainage noted, no warmth. Right neck with small scab, no drainage, warmth or redness noted. Bilateral lower leg dry scabs with no redness or warmth noted, open to air. Right knee with small pustule with surrounding warmth, redness, leaking minimal serous fluid. Cool and dry. HEAD: Atraumatic. Normocephalic. No temporal or scalp tenderness. No lymphadenopathy. EYES: Pupils equal round and reactive. Extraocular motions intact. No scleral icterus. No injection or drainage. ENT: Nose without bleeding, purulent drainage or septal hematoma. Throat without erythema, or exudate. Uvula midline. Airway patent. NECK: Trachea midline. No JVD or lymphadenopathy. Supple, nontender, no meningeal signs. CARDIOVASCULAR: Regular rate and rhythm without murmurs, gallops, or rubs. RESPIRATORY: Clear to auscultation. Breath sounds equal bilaterally. No wheezes , rales, or rhonchi. GASTROINTESTINAL: Abdomen soft, non-tender, nondistended. No palpable masses. No guarding. MUSCULOSKELETAL: Extremities without clubbing, cyanosis, or edema. No joint tenderness, effusion, or edema noted. No calf tenderness. NEUROLOGICAL: Awake and alert. Motor and sensory grossly within normal limits. Five out of 5 muscle strength in all muscle groups. Normal speech. Assessment and Plan Assessment and Plan 32-year old male with PMH significant for Autism, intermittent explosive disorder, bipolar disorder, and GERD. Patient [place] acted following questions about heaven while at assisted. Medical team consulted for evaluation of elevated WBC count. Intermittent explosive behavior Autism BA due to concerning questioning - Treatment and evaluation per psych Leukocytosis with bandemia - CBC from 07/17 with WBC 19.4 and neutrophil count 86.8 - Patient afebrile, repots dysuria. - Check UA - Already on Doxycycline 100mg BID (stated on 07/13) due to multiple abrasions and scratches. Will also continue triple antibiotic ointment - Right knee small pustule with drainage, collected culture - Recheck CBC tomorrow Elevated CK - Mildly elevated on 07/17 at 444 - Encourage PO intake, recheck tomorrow. GERD - Continue Protonix DVT prophylaxis - Ambulating Problem Qualifiers (1) Elevated WBC count: Qualified Codes: D72.825 - Bandemia Madhav Mauricio Jul 18, 2017 18:16
[2017-07-18 18:53] VITALS: BP 107/69; PULSE 86; RESP 18; TEMP 97
[2017-07-18] MEDS: DOCUSATE SODIUM 50 MG/SENNA 8.6 MG TAB PO SCH (19:58)
[2017-07-18] MEDS: DOXYCYCLINE HYCLATE 100 MG TAB PO SCH (19:58)
[2017-07-18] MEDS: QUEtiapine FUMARATE 100 MG TAB PO SCH (19:58)
[2017-07-18] MEDS: clonazePAM 1 MG TAB PO SCH (20:36)
[2017-07-19 05:39] VITALS: BP 109/71; PULSE 67; RESP 18; TEMP 97.6; O2SAT 99
[2017-07-19] MEDS: clonazePAM 1 MG TAB PO SCH ×3 (06:15→20:09)
[2017-07-19] MEDS: QUEtiapine FUMARATE 100 MG TAB PO SCH ×3 (06:18→20:07)
[2017-07-19 08:13] LABS: AUTOMATED NEUTROPHIL # 5.8 TH/MM3 (1.8-7.7); BASOPHIL % 0.2 % (0.0-2.0); EOSINOPHIL # 0.2 TH/MM3 (0-0.4); EOSINOPHIL % 2.5 % (0.0-4.0); HEMATOCRIT 42.2 % (39.0-51.0); HEMOGLOBIN 14.7 GM/DL (13.0-17.0); MEAN CELL VOLUME 85.7 FL (80.0-100.0); MEAN CORPUSCULAR HEMOGLOBIN 29.8 PG (27.0-34.0); MEAN CORPUSCULAR HGB CONC 34.8 % (32.0-36.0); MEAN PLATELET VOLUME 7.4 FL (7.0-11.0); MONO % 7.4 % (0.0-8.0); MONOCYTE # 0.6 TH/MM3 (0-0.9); NEUT % 66.9 % (16.0-70.0); PLATELET COUNT 307 TH/MM3 (150-450); RED BLOOD COUNT 4.92 MIL/MM3 (4.50-5.90); RED CELL DISTRIBUTION WIDTH 12.4 % (11.6-17.2); WHITE BLOOD COUNT 8.6 TH/MM3 (4.0-11.0)
[2017-07-19] MEDS: PANTOPRAZOLE SOD 40 MG DELAYED RELEASE TAB PO SCH ×2 (08:19→08:21)
[2017-07-19] MEDS: DOCUSATE SODIUM 50 MG/SENNA 8.6 MG TAB PO SCH ×3 (08:19→20:08)
[2017-07-19 10:15] LABS: BICARBONATE 28.1 MEQ/L (21.0-32.0); CALCIUM 9.1 MG/DL (8.5-10.1); CREATININE 0.81 MG/DL (0.60-1.30)
[2017-07-19] MEDS: NEOMYCIN/POLYMYXIN/BACITRACIN OINT 15 GM TUBE TOPICAL SCH (10:22)
[2017-07-19] MEDS: DOXYCYCLINE HYCLATE 100 MG TAB PO SCH ×2 (10:22→20:08)
--- NOTE | 2017-07-19 10:56 | HHI.HP ---
Provisional Diagnosis Admission Date Jul 18, 2017 at 10:01 [place] I. Intermittent explosive disorder; autism spectrum disorder Certification of Person's Competence To Provide Express and Informed Consent I have personally examined Jose Michelle , a person being served at [facility] on, Jul 19, 2017 10:55. Express and informed consent means consent voluntarily given in writing, by a competent person, after sufficient explanation and disclosure of the subject matter involved to enable the person to make a knowing and willful decision without any element of force, fraud, deceit, duress, or other form of constraint or coercion. This person is 18 years of age or older, is not now known to be incompetent to consent to treatment with a guardian advocate, and does not have a health care surrogate or proxy currently making medical treatment decisions. I have found this person to be one of the following: [] Competent to provide express and informed consent, as defined above, for voluntary admission to this facility and is competent to provide express and informed consent for treatment. He/she has the consistent capacity to make well reasoned, willful, and knowing decisions concerning his or her medical or mental health treatment. The person fully and consistently understands the purpose of the admission for examination/placement and is fully capable of personally exercising all rights [place] [x] Incompetent to provide express and informed consent to voluntary admission, and this is incompetent to provide express and informed consent to treatment. The person must be transferred to involuntary status and a petition for a guardian advocate filed with the Circuit Court. [] Refusing to provide express and informed consent to voluntary admission but is competent to provide express and informed consent for treatment. The person must be discharged or transferred to involuntary status. Form shall be completed within 24 hours of a person's arrival at the receiving facility and filed in the clinical record of each person: 1. Admitted on a voluntary basis 2. Permitted to provide express and informed consent to his/her own treatment 3. Allowed to transfer from involuntary to voluntary status 4. Prior to permitting a person to consent to his or her own treatment after having been previously found incompetent to consent to treatment. History of Present Illness Capacity: Lacks Capacity HPI Patient is a 32 y/o man, single, domiciled in shelter, unemployed, past psychiatric history of autism spectrum disorder, intermittent explosive disorder, prior psychiatric admission (recently discharged from [facility]), no prior suicide attempts, history of self injurious behavior when angry who was brought in under BA after patient had thought of stabbing staff and thoughts of breaking his own neck which he was admitted to the inpatient psychiatry unit for further evaluation and management. Patient was recently discharged from the inpatient unit and had endorsed suicidal and homicidal ideations to the staff and was brought back to the hospital under [place]. Patient was found walking in his room and noted to be calm initially but began perseverating on questions regarding foul language with follow up questions to any answer engineering writer gave and noted to start to become irritable and required redirection but was not noted to be physically aggressive toward engineering writer although he was noted to start hitting the wall but stopped after he was told to stop. Patient later was taken to shower. Sociology Adjunct Instructor spoke with patient's mother who stated that the shelter had difficulty filling out his medications which the patient did not receive his evening nor his morning dose which may have caused the patient to be irritable that led to the circumstances which brought him back to the hospital. Treatment plan and consent for medications reviewed with mother over the phone. No significant history change from recent admission. Past psychiatric history: diagnosis of Autism spectrum disorder, intermittent explosive disorder, prior psychiatric admissions, no prior SA, history of aggressive behavior, self injurious behavior during anger outbursts (punching or kicking bee), currently with outpatient psychiatrist Dr. Wagner; recent medication regimen includes quetiapine 150/200/150/500mg HS, clonazepam 2mg PO TID Substance use history: none PMH: none Allergies: sulfas, benztropione, depakote, haloperidol, ipratropium, peanut, soy , wheat, yeast, cow's milk Social history: single, unemployed, domiciled at shelter Review of Systems Except as stated in HPI: all other systems reviewed are Neg Past Psych History Violence risk - others (6 mos) elevated due to history of aggressive behavior and recent SI and HI Violence risk - self (6 mos) elevated due to history of self injurious behavior when agitated (banging on the wall with hands or head) Substance Abuse History Drugs/Alcohol past 12 months None Past Family Social History Coded Allergies: Sulfa (Sulfonamide Antibiotics) (Unverified Allergy, Severe, 07/05/17) Yeast (Unverified Allergy, Severe, 07/05/17) ipratropium (Unverified Allergy, Severe, 07/05/17) peanut (Verified Allergy, Severe, 07/05/17) soy (Unverified Allergy, Severe, 07/05/17) wheat (Unverified Allergy, Severe, 07/05/17) divalproex sodium (Unverified Allergy, Unknown, 07/05/17) benztropine (Verified Adverse Reaction, Mild, 07/05/17) LOW WHITE PLATELET COUNT AND TREMOR haloperidol (Verified Adverse Reaction, Mild, 07/05/17) TREMOR, LOW WHITE PLATELET COUNT Uncoded Allergies: Cow's Milk (Allergy, Severe, 10/04/11) Active Scripts [id number] (Triple Antibiotic 3.5-400-5000) 3.5 Mg-400 Unit-5 ,000 Unit/Gram Oin, 1 APPLIC TOPICAL DAILY for health for 30 Days, #1 TUBE Prov:Bulmaro Maher MD 07/17/17 Pantoprazole (Pantoprazole) 40 Mg Tab, 40 MG PO DAILY for health for 30 Days, # 30 TAB Prov:Bulmaro Maher MD 07/17/17 Sennosides-Docusate Sodium (Gnp Senna Plus 8.6-50 mg) 8.6 Mg-50 Mg Tab, 1 TAB PO BID for health for 30 Days, #60 TAB Prov:Bulmaro Maher MD 07/17/17 Quetiapine (Quetiapine) 100 Mg Tab, 500 MG PO DAILY@2000 for health for 30 Days , #150 TAB Prov:Bulmaro Maher MD 07/17/17 Quetiapine (Quetiapine) 200 Mg Tab, 200 MG PO DAILY@1200 for health for 30 Days , #30 TAB Prov:Bulmaro Maher MD 07/17/17 Quetiapine (Quetiapine) 100 Mg Tab, 150 MG PO BID@0700,1500 for health for 30 Days, #90 TAB Prov:Bulmaro Maher MD 07/17/17 [chlorproMAZINE] 50 MG TAB No Conflict Check, 50 MG PO BID@0700,1500 for health for 30 Days, #60 Prov:Bulmaro Maher MD 07/17/17 Doxycycline Hyclate (Doxycycline Hyclate) 100 Mg Tab, 100 MG PO Q12HR for health for 4 Days, #7 TAB Prov:Bulmaro Maher MD 07/17/17 Clonazepam (Clonazepam) 2 Mg Tab, 2 MG PO TID@0700,1500,2000 for health for 30 Days, #90 TAB 0 Refills Prov:Bulmaro Maher MD 07/17/17 Reported Medications Omeprazole (Omeprazole) 40 Mg Cap, 40 MG PO DAILY, #30 CAP 0 Refills 05/17/17 Multiple Vitamin (Multi-Vitamin Daily) 1 Tab Tab, 1 TAB PO DAILY for Nutritional Supplement, TAB 0 Refills 05/17/17 Discontinued Reported Medications Polyethylene Glycol 3350 Powder (Polyethylene Glycol 3350 Powder) 17 Gram Pow, 17 GM PO DAILY for Constipation, #1 BOTTLE 0 Refills 05/17/17 Simethicone (Mi-Acid Gas Relief) 80 Mg Chw, 160 TAB PO BIDPC 05/17/17 Discontinued Scripts Clonazepam (Klonopin) 1 Mg Tab, 2 MG PO DAILY@0700,1500,2000 for Mental Health for 1 Day, TAB 0 Refills Order is to update med rec only. Prov:Perry Grover MD 05/23/17 Quetiapine (Quetiapine) 300 Mg Tab, 500 MG PO DAILY@1999 for Mental Health for 15 Days, TAB 1 Refill Prov:Perry Grover MD 05/23/17 Quetiapine (Quetiapine) 100 Mg Tab, 150 MG PO DAILY@0700,1200,1500 for Mental Health for 15 Days, TAB 1 Refill Prov:Perry Gorver MD 05/23/17 Sertraline (Sertraline) 50 Mg Tab, 50 MG PO DAILY for Mental Health for 15 Days , #15 TAB 1 Refill Prov:Perry Grover MD 05/23/17 Current Medications Medications (Trade) Dose Ordered Sig/Nadeen Route Start Time Stop Time Status Last Admin (Ativan) 1 mg Q6H PRN PO 07/18/17 10:00 (Ativan Inj) 1 mg Q6H PRN IM 07/18/17 10:00 (Tylenol) 650 mg Q4H PRN PO 07/18/17 11:00 (Milk Of Magnesia Liq) 30 ml DAILY PRN PO 07/18/17 10:00 (Mag-Al Plus Susp Liq) 30 ml Q6H PRN PO 07/18/17 10:00 (Atarax) 50 mg Q6H PRN PO 07/18/17 12:00 (KlonoPIN) 2 mg TID@0700,1500,2000 PO 07/18/17 15:00 07/19/17 06:15 (Vibratab) 100 mg Q12HR PO 07/18/17 21:00 07/19/17 10:22 (SEROquel) 150 mg BID@0700,1500 PO 07/18/17 15:00 07/19/17 06:18 (SEROquel) 500 mg DAILY@2000 PO 07/18/17 20:00 07/18/17 19:58 (SEROquel) 200 mg DAILY@1200 PO 07/19/17 12:00 (Imchaela-Colace) 1 tab BID PO 07/18/17 21:00 07/19/17 08:19 (Protonix) 40 mg DAILY PO 07/18/17 12:00 07/19/17 08:21 (Neosporin Oint) 1 applic DAILY TOPICAL 07/19/17 09:00 07/19/17 10:22 Social History single, unemployed, domiciled at shelter Patient's Strengths (min. 2) verbal and communicative Physical Exam Patient no noted to be in acute distress, no gross motor abnormalities, no tremor or EPS, noted to have some sterotypy movements. Vital Signs Vital Signs Date Time Temp Pulse Resp B/P (MAP) Pulse Ox O2 Delivery O2 Flow Rate FiO2 07/19/17 05:39 97.6 67 18 109/71 (84) 99 07/18/17 10:05 Room Air Lab Results Test 07/19/17 07:34 07/19/17 07:56 Blood Urea Nitrogen 12 MG/DL Creatinine 0.81 MG/DL Random Glucose 79 MG/DL Calcium Level 9.1 MG/DL Sodium Level 140 MEQ/L Potassium Level 3.5 MEQ/L Chloride Level 102 MEQ/L Carbon Dioxide Level 28.1 MEQ/L Anion Gap 10 MEQ/L Estimat Glomerular Filtration Rate 109 ML/MIN Total Creatine Kinase 170 U/L Creatine Kinase MB 1.8 NG/ML White Blood Count 8.6 TH/MM3 Red Blood Count 4.92 MIL/MM3 Hemoglobin 14.7 GM/DL Hematocrit 42.2 % Mean Corpuscular Volume 85.7 FL Mean Corpuscular Hemoglobin 29.8 PG Mean Corpuscular Hemoglobin Concent 34.8 % Red Cell Distribution Width 12.4 % Platelet Count 307 TH/MM3 Mean Platelet Volume 7.4 FL Neutrophils (%) (Auto) 66.9 % Lymphocytes (%) (Auto) 23.0 % Monocytes (%) (Auto) 7.4 % Eosinophils (%) (Auto) 2.5 % Basophils (%) (Auto) 0.2 % Neutrophils # (Auto) 5.8 TH/MM3 Lymphocytes # (Auto) 2.0 TH/MM3 Monocytes # (Auto) 0.6 TH/MM3 Eosinophils # (Auto) 0.2 TH/MM3 Basophils # (Auto) 0.0 TH/MM3 CBC Comment DIFF FINAL Differential Comment Date/Time Source Procedure Growth Status 07/18/17 18:10 Wound Skin Gram Stain - Final Resulted 07/18/17 18:10 Wound Skin Wound Culture Pending Resulted Mental Status Examination Appearance: Appropriate Consciousness: Alert Orientation: Person Motor Activity: Normal gait Speech: Unremarkable Language: Perseveration Fund of Knowledge: Inadequate Attention and Concentration: Inadequate Memory: Unremarkable Mood: Irritable Affect: Irritable Thought Process & Associations: Other (concrete) Thought Content: Preoccupations Hallucination Type: None Delusion Type: None Suicidal Ideation: No Suicidal Plan: No Suicidal Intention: No Homicidal Ideation: No Homicidal Plan: No Homicidal Intention: No Insight: Poor Judgment: Poor Assessment & Plan Problem List: (1) Intermittent explosive disorder ICD Codes: F63.81 - Intermittent explosive disorder Status: Acute (2) Autism ICD Codes: F84.0 - Autism Status: Acute Assessment & Plan Patient is a 32-year-old man who carries a diagnosis of intermittent expulsive disorder, autism spectrum disorder with previous psychiatric admissions, no previous suicide attempt but has history of self-injurious behavior when agitated was recently discharged from inpatient psychiatry unit and readmitted back to the hospital after patient was endorsing thoughts of hurting himself or as well as others in the context of intellectual disability and not having been provided with his medications recently. Patient continues to be irritable and although not overtly threatening but noted to be somewhat escalating when perseverative on questioning. It is possible the patient continued to refer to irritability and aggressive and threatening behavior to to not having received his medications after he returned back to the shelter. After discussion with patient's mother consent for treatment we'll start patient on lithium 300 mg by mouth twice a day for mood stabilization and continue [id number]/200/150/500mg, along with clonazepam 2 mg 3 times a day. Continue recognition is her primary medical team. Will order TSH level and EKG. Continue to monitor mood and behavior. Patient will require assistance for ADLs. Discharge planning in progress Discharge Planning To return back to the shelter when psychiatric stable Bulmaro Maher MD Jul 19, 2017 10:56
[2017-07-19] MEDS: LITHIUM CARBONATE 300 MG TAB PO SCH ×2 (12:02→20:08)
[2017-07-19] MEDS: QUEtiapine FUMARATE 200 MG TAB PO SCH (12:03)
[2017-07-19 14:14] LABS: BILIRUBIN, URINE NEG (NEG); BLOOD, URINE NEG (NEG); GLUCOSE,URINE NEG (NEG); KETONE, URINE NEG (NEG); MUCUS URINE FEW /lpf (OCC); NITRITE,URINE NEG (NEG); URINE COLOR YELLOW (YELLW/STRAW); URINE LEUKOCYTE ESTERASE NEG (NEG)
--- NOTE | 2017-07-19 16:53 | HHI.PR ---
Subjective Remarks Follow up for skin wounds, leukocytosis. The patient is seen in his room, in presence of RN. RN reports the patient complained of some burning with urination earlier today, however patient currently denying this. Denies any fevers/chills, headache, cough, chest pain, palpitations, shortness of breath, or abdominal complaints. He believes his skin wounds on his wrist and neck are improving. Denies any drainage from the wounds. Denies any worsening redness. He has no other medical complaints at this time. Objective Vitals Vital Signs Date Time Temp Pulse Resp B/P (MAP) Pulse Ox O2 Delivery O2 Flow Rate FiO2 07/19/17 05:39 97.6 67 18 109/71 (84) 99 07/18/17 18:53 97.0 86 18 107/69 (82) 07/18/17 16:53 Result Diagram: 07/19/17 0756 07/19/17 0734 Objective Remarks GENERAL: Well-nourished, well-developed autistic male patient in NAD. Ambulating in room. Soft voice. SKIN: Warm and dry. Multiple areas of dry excoriations throughout base of neck, upper lip under nares, right hand, right knee. Right lateral wrist with dry wound with eschar, minimal erythema, no drainage/edema. HEENT: Normocephalic. Atraumatic. Pupils equal and round. Mucous membranes pink and moist. NECK: Supple. Trachea midline. CARDIOVASCULAR: Regular rate and rhythm. S1, S2 noted. No murmur appreciated. RESPIRATORY: No accessory muscle use. Clear to auscultation. Breath sounds equal bilaterally. GASTROINTESTINAL: Abdomen soft, non-tender, nondistended. Normoactive bowel sounds x4. MUSCULOSKELETAL: No obvious deformities. Extremities without clubbing, cyanosis , or edema. NEUROLOGICAL: Awake and alert. No obvious cranial nerve deficits. Motor grossly within normal limits. Normal speech. Medications and IVs Current Medications Medications (Trade) Dose Ordered Sig/Nadeen Route Start Time Stop Time Status Last Admin (Ativan) 1 mg Q6H PRN PO 07/18/17 10:00 (Ativan Inj) 1 mg Q6H PRN IM 07/18/17 10:00 (Tylenol) 650 mg Q4H PRN PO 07/18/17 11:00 (Milk Of Magnesia Liq) 30 ml DAILY PRN PO 07/18/17 10:00 (Mag-Al Plus Susp Liq) 30 ml Q6H PRN PO 07/18/17 10:00 (Atarax) 50 mg Q6H PRN PO 07/18/17 12:00 (KlonoPIN) 2 mg TID@0700,1500,2000 PO 07/18/17 15:00 07/19/17 15:23 (Vibratab) 100 mg Q12HR PO 07/18/17 21:00 07/19/17 10:22 (SEROquel) 150 mg BID@0700,1500 PO 07/18/17 15:00 07/19/17 15:23 (SEROquel) 500 mg DAILY@2000 PO 07/18/17 20:00 07/18/17 19:58 (SEROquel) 200 mg DAILY@1200 PO 07/19/17 12:00 07/19/17 12:03 (Protonix) 40 mg DAILY PO 07/18/17 12:00 07/19/17 08:21 (Neosporin Oint) 1 applic DAILY TOPICAL 07/19/17 09:00 07/19/17 10:22 (Lithotabs) 300 mg Q12HR PO 07/19/17 11:00 07/19/17 12:02 (Michaela-Colace) 1 tab BID PO 07/19/17 12:45 07/19/17 15:22 A/P Problem List: (1) Autism ICD Code: F84.0 - Autism Status: Acute (2) Elevated WBC count ICD Code: D72.829 - Elevated white blood cell count, unspecified Assessment and Plan 32-year old male with PMH significant for Autism, intermittent explosive disorder, bipolar disorder, and GERD. Patient Trisha acted following questions about anjalin while at [facility]. Medical team consulted for evaluation of elevated WBC count. Suicidal Ideations, Intermittent explosive behavior, Autism: under [place] Act from [facility]. - Continue management per psychiatry Leukocytosis with bandemia: suspect reactive due to acute psychosis vs possible mild cellulitis. Afebrile. - CBC from 07/17 with WBC 19.4, now improved with WBC 8.6 - UA negative - Possible mild secondary cellulitis from excoriations, continue on Doxycycline 100mg BID x1week (started on 07/13) and antibiotic ointment - Culture collected from small right knee pustule, monitor for results Elevated CK - Mildly elevated on 07/17 at 444 - Encourage PO intake - repeat CPK wnl, resolved GERD - Continue Protonix DVT prophylaxis - Patient is ambulatory Problem Qualifiers (1) Elevated WBC count: Qualified Codes: D72.825 - Bandemia January Kiser PA-C Jul 19, 2017 4:53 pm
[2017-07-19 17:15] VITALS: BP 101/62; PULSE 91; RESP 18; TEMP 96.5; O2SAT 99
[2017-07-20 05:59] VITALS: BP 97/60; PULSE 72; RESP 16; TEMP 98.2; O2SAT 98
[2017-07-20] MEDS: QUEtiapine FUMARATE 100 MG TAB PO SCH ×3 (06:37→20:31)
[2017-07-20] MEDS: clonazePAM 1 MG TAB PO SCH ×3 (06:37→20:30)
[2017-07-20] MEDS: DOCUSATE SODIUM 50 MG/SENNA 8.6 MG TAB PO SCH ×2 (07:58→20:31)
[2017-07-20] MEDS: NEOMYCIN/POLYMYXIN/BACITRACIN OINT 15 GM TUBE TOPICAL SCH (07:58)
[2017-07-20] MEDS: PANTOPRAZOLE SOD 40 MG DELAYED RELEASE TAB PO SCH (07:58)
[2017-07-20] MEDS: LITHIUM CARBONATE 300 MG TAB PO SCH ×2 (07:58→20:31)
[2017-07-20] MEDS: DOXYCYCLINE HYCLATE 100 MG TAB PO SCH ×2 (07:58→20:31)
--- NOTE | 2017-07-20 10:22 | EKG ---
Date Performed: 07/19/2017 Time Performed: 13:08:16 PTAGE: 32 years EKG: Sinus rhythm NORMAL ECG PREVIOUS TRACING : 07/12/2017 13.28 No change from previous tracing noted. DOCTOR: Rufino Villanueva Interpretating Date/Time 07/20/2017 10:21:56
--- NOTE | 2017-07-20 11:48 | HHI.PYPN ---
Subjective Remarks The Seroquel, chart reviewed. Discussion is not reported the patient has not had any aggressive behavior although has been assertive questions please feel agitation. Patient was found walking around his room and taking a shower and denies any physical platelets at this time reports having slept well the drinking well. Patient began with perseveration on questions which were provided answers without follow questions of those answers and would continue on noted that this precipitates agitation the patient which interview had to be concluded to avoid patient escalating. Patient agreed to participate in groups and activities. Review of Systems Except as stated in HPI: all other systems reviewed are Neg Mental Status Examination Appearance: Appropriate Consciousness: Alert Orientation: Person Motor Activity: Normal gait Speech: Unremarkable Language: Perseveration Fund of Knowledge: Inadequate Attention and Concentration: Inadequate Memory: Unremarkable Mood: Irritable Affect: Irritable Thought Process & Associations: Other (concrete) Thought Content: Preoccupations Hallucination Type: None Delusion Type: None Suicidal Ideation: No Suicidal Plan: No Suicidal Intention: No Homicidal Ideation: No Homicidal Plan: No Homicidal Intention: No Insight: Poor Judgment: Poor Results Labs Labs reviewed Test 07/19/17 12:45 Urine Color YELLOW Urine Turbidity CLEAR Urine pH 6.0 Urine Specific [place] 1.021 Urine Protein TRACE mg/dL Urine Glucose (UA) NEG mg/dL Urine Ketones NEG mg/dL Urine Occult Blood NEG Urine Nitrite NEG Urine Bilirubin NEG Urine Urobilinogen LESS THAN 2.0 MG/DL Urine Leukocyte Esterase NEG Urine WBC 1 /hpf Urine Mucus FEW /lpf Microscopic Urinalysis Comment CULT NOT INDICATED Date/Time Source Procedure Growth Status 07/18/17 18:10 Wound Skin Gram Stain - Final Complete 07/18/17 18:10 Wound Culture - Final Group A Beta Strep Complete Vitals/IOs Vital Signs Date Time Temp Pulse Resp B/P (MAP) Pulse Ox O2 Delivery O2 Flow Rate FiO2 07/20/17 05:59 98.2 72 16 97/60 (72) 98 07/18/17 10:05 Room Air Assessment & Plan Problem List: (1) Intermittent explosive disorder ICD Codes: F63.81 - Intermittent explosive disorder Status: Acute (2) Autism ICD Codes: F84.0 - Autism Status: Acute Assessment & Plan This time tolerating medications well continue to be noted to be perseverative on certain topics which at times leads to agitation but has been able to be the de-escalated. We'll continue current treatment. Continue to monitor mood and behavior. Will have lithium level scheduled for 07/22/17 at 6 AM. Patient's perseveration and questioning likely not a due behavior and will continue to require redirection as this may be more behavioral secondary to his autism. Continue recommendations as per primary medical team. Discharge planning in progress Justification for Cont. Inpt. At risk for further decompensation a lower level of care Discharge Planning Patient to return back to his assisted when psychiatrically stable Bulmaro Maher MD Jul 20, 2017 11:48
[2017-07-20] MEDS: QUEtiapine FUMARATE 200 MG TAB PO SCH (12:17)
--- NOTE | 2017-07-20 13:13 | PD.PSY.CON ---
Provisional Diagnosis Admission Date Jul 18, 2017 at 10:01 Wil[place] I. Intermittent explosive disorder; autism spectrum disorder History of Present Illness Service Psychiatry Consult Requested By Psychiatry Reason for Consult Second opinion Primary Care Physician Non-Staff HPI Patient is a 32 y/o man, single, domiciled in [facility], unemployed, past psychiatric history of autism spectrum disorder, intermittent explosive disorder, prior psychiatric admission (recently discharged from [facility]), no prior suicide attempts, history of self injurious behavior when angry who was brought in under BA after patient had thought of stabbing staff and thoughts of breaking his own neck which he was admitted to the inpatient psychiatry unit for further evaluation and management. Patient was recently discharged from the inpatient unit and had endorsed suicidal and homicidal ideations to the staff and was brought back to the hospital under [place] Act. Patient was found walking in his room and noted to be calm initially but began perseverating on questions regarding foul language with follow up questions to any answer script writer gave and noted to start to become irritable and required redirection but was not noted to be physically aggressive toward script writer although he was noted to start hitting the wall but stopped after he was told to stop. Patient later was taken to shower. Stamp Analyst spoke with patient's mother who stated that the [facility] had difficulty filling out his medications which the patient did not receive his evening nor his morning dose which may have caused the patient to be irritable that led to the circumstances which brought him back to the hospital. Treatment plan and consent for medications reviewed with mother over the phone. The patient is a 32 years old man, domiciled in a [facility], single, unemployed, with psychiatric history of autism spectrum disorder, intermittent explosive disorder, poor impulse control, history of aggressive behavior, multiple prior psychiatric admissions, no previous suicidal attempts, but probating history of self inflicting harm to self, who was just discharged from [facility] days ago, he has no medical history, who was brought back to [facility] after discharge the Rico act due to aggressive behavior, and making suicidal and homicidal statements. On psychiatric evaluation today the patient is found pacing in his room, he has several magazines over his bed. He reports that he feels okay, denies suicidal and homicidal ideation, he denies visual and auditory hallucinations. Very restless, but perseverant, asking the same question over and over. He reported that he has been taking his medications, no significant side effects. In the unit he has been displaying episodic agitation, but he is usually verbally de-escalated Past Family Social History Coded Allergies: Sulfa (Sulfonamide Antibiotics) (Unverified Allergy, Severe, 07/05/17) Yeast (Unverified Allergy, Severe, 07/05/17) ipratropium (Unverified Allergy, Severe, 07/05/17) peanut (Verified Allergy, Severe, 07/05/17) soy (Unverified Allergy, Severe, 07/05/17) wheat (Unverified Allergy, Severe, 07/05/17) divalproex sodium (Unverified Allergy, Unknown, 07/05/17) benztropine (Verified Adverse Reaction, Mild, 07/05/17) LOW WHITE PLATELET COUNT AND TREMOR haloperidol (Verified Adverse Reaction, Mild, 07/05/17) TREMOR, LOW WHITE PLATELET COUNT Uncoded Allergies: Cow's Milk (Allergy, Severe, 10/04/11) Active Scripts Egchrohx-Mvfxnvjifn-Fcmnofjja (Triple Antibiotic 3.5-400-5000) 3.5 Mg-400 Unit-5 ,000 Unit/Gram Oin, 1 APPLIC TOPICAL DAILY for health for 30 Days, #1 TUBE Prov:Bulmaro Maher MD 07/17/17 Pantoprazole (Pantoprazole) 40 Mg Tab, 40 MG PO DAILY for health for 30 Days, # 30 TAB Prov:Bulmaro Maher MD 07/17/17 Sennosides-Docusate Sodium (Gnp Senna Plus 8.6-50 mg) 8.6 Mg-50 Mg Tab, 1 TAB PO BID for health for 30 Days, #60 TAB Prov:Bulamro Maher MD 07/17/17 Quetiapine (Quetiapine) 100 Mg Tab, 500 MG PO DAILY@2000 for health for 30 Days , #150 TAB Prov:Bulmaro Maher MD 07/17/17 Quetiapine (Quetiapine) 200 Mg Tab, 200 MG PO DAILY@1200 for health for 30 Days , #30 TAB Prov:Bulmaro Maher MD 07/17/17 Quetiapine (Quetiapine) 100 Mg Tab, 150 MG PO BID@0700,1500 for health for 30 Days, #90 TAB Prov:Bulmaro Maher MD 07/17/17 [chlorproMAZINE] 50 MG TAB No Conflict Check, 50 MG PO BID@0700,1500 for health for 30 Days, #60 Prov:Bulmaro Maher MD 07/17/17 Doxycycline Hyclate (Doxycycline Hyclate) 100 Mg Tab, 100 MG PO Q12HR for health for 4 Days, #7 TAB Prov:Bulmaro Maher MD 07/17/17 Clonazepam (Clonazepam) 2 Mg Tab, 2 MG PO TID@0700,1500,2000 for health for 30 Days, #90 TAB 0 Refills Prov:Bulmaro Maher MD 07/17/17 Reported Medications Omeprazole (Omeprazole) 40 Mg Cap, 40 MG PO DAILY, #30 CAP 0 Refills 05/17/17 Multiple Vitamin (Multi-Vitamin Daily) 1 Tab Tab, 1 TAB PO DAILY for Nutritional Supplement, TAB 0 Refills 05/17/17 Discontinued Reported Medications Polyethylene Glycol 3350 Powder (Polyethylene Glycol 3350 Powder) 17 Gram Pow, 17 GM PO DAILY for Constipation, #1 BOTTLE 0 Refills 05/17/17 Simethicone (Mi-Acid Gas Relief) 80 Mg Chw, 160 TAB PO BIDPC 05/17/17 Discontinued Scripts Clonazepam (Klonopin) 1 Mg Tab, 2 MG PO DAILY@0700,1500,2000 for Mental Health for 1 Day, TAB 0 Refills Order is to update med rec only. Prov:Perry Grover MD 05/23/17 Quetiapine (Quetiapine) 300 Mg Tab, 500 MG PO DAILY@1999 for Mental Health for 15 Days, TAB 1 Refill Prov:Perry Grover MD 05/23/17 Quetiapine (Quetiapine) 100 Mg Tab, 150 MG PO DAILY@0700,1200,1500 for Mental Health for 15 Days, TAB 1 Refill Prov:Perry Grover MD 05/23/17 Sertraline (Sertraline) 50 Mg Tab, 50 MG PO DAILY for Mental Health for 15 Days , #15 TAB 1 Refill Prov:Perry Grover MD 05/23/17 Current Medications Medications (Trade) Dose Ordered Sig/Nadeen Route Start Time Stop Time Status Last Admin (Ativan) 1 mg Q6H PRN PO 07/18/17 10:00 (Ativan Inj) 1 mg Q6H PRN IM 07/18/17 10:00 (Tylenol) 650 mg Q4H PRN PO 07/18/17 11:00 (Milk Of Magnesia Liq) 30 ml DAILY PRN PO 07/18/17 10:00 (Mag-Al Plus Susp Liq) 30 ml Q6H PRN PO 07/18/17 10:00 (Atarax) 50 mg Q6H PRN PO 07/18/17 12:00 (KlonoPIN) 2 mg TID@0700,1500,2000 PO 07/18/17 15:00 07/20/17 06:37 (Vibratab) 100 mg Q12HR PO 07/18/17 21:00 07/20/17 07:58 (SEROquel) 150 mg BID@0700,1500 PO 07/18/17 15:00 07/20/17 06:37 (SEROquel) 500 mg DAILY@2000 PO 07/18/17 20:00 07/19/17 20:07 (SEROquel) 200 mg DAILY@1200 PO 07/19/17 12:00 07/20/17 12:17 (Protonix) 40 mg DAILY PO 07/18/17 12:00 07/20/17 07:58 (Neosporin Oint) 1 applic DAILY TOPICAL 07/19/17 09:00 07/20/17 07:58 (Lithotabs) 300 mg Q12HR PO 07/19/17 11:00 07/20/17 07:58 (Michaela-Colace) 1 tab BID PO 07/19/17 12:45 07/20/17 07:58 Patient's Strengths (min. 2) verbal and communicative Physical Exam Vital Signs Vital Signs Date Time Temp Pulse Resp B/P (MAP) Pulse Ox O2 Delivery O2 Flow Rate FiO2 07/20/17 05:59 98.2 72 16 97/60 (72) 98 07/18/17 10:05 Room Air Lab Results Date/Time Source Procedure Growth Status 07/18/17 18:10 Wound Skin Gram Stain - Final Complete 07/18/17 18:10 Wound Culture - Final Group A Beta Strep Complete Mental Status Examination Appearance: Appropriate Consciousness: Alert Orientation: Person Motor Activity: Normal gait Speech: Unremarkable Language: Perseveration Fund of Knowledge: Inadequate Attention and Concentration: Inadequate Memory: Unremarkable Mood: Irritable Affect: Irritable Thought Process & Associations: Other (concrete) Thought Content: Preoccupations Hallucination Type: None Delusion Type: None Suicidal Ideation: No Suicidal Plan: No Suicidal Intention: No Homicidal Ideation: No Homicidal Plan: No Homicidal Intention: No Insight: Poor Judgment: Poor Assessment & Plan Problem List: (1) Intermittent explosive disorder ICD Codes: F63.81 - Intermittent explosive disorder Status: Acute (2) Autism ICD Codes: F84.0 - Autism Status: Acute Assessment & Plan: I have seen and examined this patient, reviewed the documentation, discussed the case with Dr. Maher, I agree and concur with this assessment and plan. Assessment & Plan Estimated LOS: Prashant Gonzalez MD Jul 20, 2017 13:13
[2017-07-20 18:35] VITALS: BP 94/64; PULSE 95; RESP 17; TEMP 98.7; O2SAT 98
[2017-07-21] MEDS: QUEtiapine FUMARATE 100 MG TAB PO SCH ×3 (06:08→21:47)
[2017-07-21] MEDS: clonazePAM 1 MG TAB PO SCH ×3 (06:08→21:50)
[2017-07-21 06:24] VITALS: BP 109/71; PULSE 90; RESP 20; TEMP 98.6; O2SAT 97
[2017-07-21] MEDS: DOXYCYCLINE HYCLATE 100 MG TAB PO SCH ×2 (07:55→21:48)
[2017-07-21] MEDS: PANTOPRAZOLE SOD 40 MG DELAYED RELEASE TAB PO SCH (07:55)
[2017-07-21] MEDS: DOCUSATE SODIUM 50 MG/SENNA 8.6 MG TAB PO SCH ×2 (07:55→21:48)
[2017-07-21] MEDS: LITHIUM CARBONATE 300 MG TAB PO SCH ×2 (07:55→21:48)
[2017-07-21] MEDS: NEOMYCIN/POLYMYXIN/BACITRACIN OINT 15 GM TUBE TOPICAL SCH (07:56)
[2017-07-21] MEDS: QUEtiapine FUMARATE 200 MG TAB PO SCH (11:47)
--- NOTE | 2017-07-21 12:20 | HHI.PYPN ---
Subjective Remarks Pt seen and discussed with staff. He has been fixated on going to [facility]. Staff states he was irritable this morning but has been less agitated this afternoon. He is cooperative with medications. Mental Status Examination Appearance: Appropriate Consciousness: Alert Orientation: Person Motor Activity: Normal gait Speech: Unremarkable Language: Perseveration Fund of Knowledge: Inadequate Attention and Concentration: Inadequate Memory: Unremarkable Mood: Irritable Affect: Irritable Thought Process & Associations: Other (concrete) Thought Content: Preoccupations Hallucination Type: None Delusion Type: None Suicidal Ideation: No Suicidal Plan: No Suicidal Intention: No Homicidal Ideation: No Homicidal Plan: No Homicidal Intention: No Insight: Poor Judgment: Poor Results Labs Date/Time Source Procedure Growth Status 07/18/17 18:10 Wound Skin Gram Stain - Final Complete 07/18/17 18:10 Wound Culture - Final Group A Beta Strep Complete Vitals/IOs Vital Signs Date Time Temp Pulse Resp B/P (MAP) Pulse Ox O2 Delivery O2 Flow Rate FiO2 07/21/17 06:24 98.6 90 20 109/71 (84) 97 07/18/17 10:05 Room Air Assessment & Plan Problem List: (1) Intermittent explosive disorder ICD Codes: F63.81 - Intermittent explosive disorder Status: Acute (2) Autism ICD Codes: F84.0 - Autism Status: Acute Assessment & Plan Pt improving. Continue current tx plan. Estimated LOS: days Justification for Cont. Inpt. impairments in safety Taniya Boone MD Jul 21, 2017 12:20
--- NOTE | 2017-07-21 13:08 | HHI.PR ---
Subjective Remarks Follow-up cellulitis/wound infection. Patient offers no complaints. Discussed with RN Objective Vitals Vital Signs Date Time Temp Pulse Resp B/P (MAP) Pulse Ox O2 Delivery O2 Flow Rate FiO2 07/21/17 06:24 98.6 90 20 109/71 (84) 97 07/20/17 18:35 98.7 95 17 94/64 (74) 98 Result Diagram: 07/19/17 0756 07/19/17 0734 Objective Remarks GENERAL: Well-nourished, well-developed autistic male patient in NAD. Ambulating in room. Soft voice. SKIN: Warm and dry. Multiple areas of dry excoriations throughout base of neck and right hand. Right lateral wrist with dry wound with eschar, minimal erythema , no drainage/edema. CARDIOVASCULAR: Regular rate and rhythm. S1, S2 noted. No murmur appreciated. RESPIRATORY: No accessory muscle use. Clear to auscultation. Breath sounds equal bilaterally. GASTROINTESTINAL: Abdomen soft, non-tender, nondistended. Normoactive bowel sounds x4. MUSCULOSKELETAL: No obvious deformities. Extremities without clubbing, cyanosis , or edema. NEUROLOGICAL: Awake and alert. No obvious cranial nerve deficits. Motor grossly within normal limits. Normal speech. A/P Problem List: (1) Autism ICD Code: F84.0 - Autism Status: Acute (2) Elevated WBC count ICD Code: D72.829 - Elevated white blood cell count, unspecified Assessment and Plan 32-year old male with PMH significant for Autism, intermittent explosive disorder, bipolar disorder, and GERD. Patient Rico acted following questions about heaven [facility] at shelter. Medical team consulted for evaluation of elevated WBC count. Suicidal Ideations, Intermittent explosive behavior, Autism: under Rico Act from [facility] - Continue management per psychiatry Leukocytosis with bandemia: suspect reactive due to acute psychosis vs possible mild cellulitis. Afebrile. Improved - CBC from 07/17 with WBC 19.4, now improved with WBC 8.6 - UA negative - Possible mild secondary cellulitis from excoriations, continue on Doxycycline 100mg BID until July 23 and antibiotic ointment Elevated CK - Mildly elevated on 07/17 at 444 - Encourage PO intake - repeat CPK wnl, resolved GERD - Continue Protonix DVT prophylaxis - Patient is ambulatory Problem Qualifiers (1) Elevated WBC count: Qualified Codes: D72.825 - Jarrett Guthrie MD Jul 21, 2017 13:08
[2017-07-21 18:07] VITALS: BP 97/62; PULSE 89; RESP 19; TEMP 98.3; O2SAT 97
[2017-07-21] MEDS ORDERED: diphenhydrAMINE HCL 50 MG/ML VIAL ONE (18:17)
[2017-07-21] MEDS ORDERED: diphenhydrAMINE HCL 50 MG/ML VIAL IM ONE (18:30)
[2017-07-22] MEDS: clonazePAM 1 MG TAB PO SCH ×3 (06:20→20:05)
[2017-07-22] MEDS: QUEtiapine FUMARATE 100 MG TAB PO SCH ×3 (06:20→20:04)
[2017-07-22 06:24] VITALS: BP 100/64; PULSE 83; RESP 17; TEMP 97.3; O2SAT 97
[2017-07-22] MEDS: PANTOPRAZOLE SOD 40 MG DELAYED RELEASE TAB PO SCH (08:41)
[2017-07-22] MEDS: DOCUSATE SODIUM 50 MG/SENNA 8.6 MG TAB PO SCH ×2 (08:41→20:04)
[2017-07-22] MEDS: LITHIUM CARBONATE 300 MG TAB PO SCH ×2 (08:41→20:04)
[2017-07-22] MEDS: DOXYCYCLINE HYCLATE 100 MG TAB PO SCH ×2 (08:41→20:04)
[2017-07-22] MEDS: NEOMYCIN/POLYMYXIN/BACITRACIN OINT 15 GM TUBE TOPICAL SCH (08:41)
[2017-07-22] MEDS ORDERED: diphenhydrAMINE HCL 50 MG/ML VIAL ONE (10:33)
[2017-07-22] MEDS ORDERED: diphenhydrAMINE HCL 50 MG/ML VIAL IM ONE (10:45)
[2017-07-22] MEDS: QUEtiapine FUMARATE 200 MG TAB PO SCH (12:00)
--- NOTE | 2017-07-22 13:53 | HHI.PYPN ---
Subjective Remarks Pt seen and discussed with staff. Yesterday evening he became agitated and received ETO for safety. This morning he became agitated and asked RN what would happen if he turned RN's neck all the way around. He continued to escalate and received another ETO. He has been calm and cooperative since. Mental Status Examination Appearance: Appropriate Consciousness: Alert Orientation: Person Motor Activity: Normal gait Speech: Unremarkable Language: Perseveration Fund of Knowledge: Inadequate Attention and Concentration: Inadequate Memory: Unremarkable Mood: Irritable Affect: Irritable Thought Process & Associations: Other (concrete) Thought Content: Preoccupations Hallucination Type: None Delusion Type: None Suicidal Ideation: No Suicidal Plan: No Suicidal Intention: No Homicidal Ideation: No Homicidal Plan: No Homicidal Intention: No Insight: Poor Judgment: Poor Results Labs Test 07/22/17 10:20 [place] Level 0.6 MEQ/L Date/Time Source Procedure Growth Status 07/18/17 18:10 Wound Skin Gram Stain - Final Complete 07/18/17 18:10 Wound Culture - Final Group A Beta Strep Complete Vitals/IOs Vital Signs Date Time Temp Pulse Resp B/P (MAP) Pulse Ox O2 Delivery O2 Flow Rate FiO2 07/22/17 06:24 97.3 83 17 100/64 (76) 97 07/18/17 10:05 Room Air Assessment & Plan Problem List: (1) Intermittent explosive disorder ICD Codes: F63.81 - Intermittent explosive disorder Status: Acute (2) Autism ICD Codes: F84.0 - Autism Status: Acute Assessment & Plan continue current tx plan. Estimated LOS: days Justification for Cont. Inpt. impairments in safety Taniya Boone MD Jul 22, 2017 13:53
[2017-07-22 15:35] VITALS: BP 94/59; PULSE 74; RESP 18; TEMP 97.3; O2SAT 98
[2017-07-22] MEDS: LORazepam 1 MG TAB PO PRN (20:04)
[2017-07-23 05:52] VITALS: BP 108/66; PULSE 97; RESP 16; TEMP 96.9; O2SAT 96
[2017-07-23] MEDS: QUEtiapine FUMARATE 100 MG TAB PO SCH ×3 (06:05→20:57)
[2017-07-23] MEDS: clonazePAM 1 MG TAB PO SCH ×3 (06:05→20:57)
[2017-07-23] MEDS: NEOMYCIN/POLYMYXIN/BACITRACIN OINT 15 GM TUBE TOPICAL SCH (08:49)
[2017-07-23] MEDS: PANTOPRAZOLE SOD 40 MG DELAYED RELEASE TAB PO SCH (08:49)
[2017-07-23] MEDS: LITHIUM CARBONATE 300 MG TAB PO SCH ×2 (08:49→18:01)
[2017-07-23] MEDS: DOXYCYCLINE HYCLATE 100 MG TAB PO SCH (08:49)
[2017-07-23] MEDS: DOCUSATE SODIUM 50 MG/SENNA 8.6 MG TAB PO SCH ×2 (08:49→20:57)
[2017-07-23] MEDS: ACETAMINOPHEN 325 MG TAB PO PRN (08:50)
[2017-07-23] MEDS: LORazepam 1 MG TAB PO PRN (13:06)
[2017-07-23] MEDS: QUEtiapine FUMARATE 200 MG TAB PO SCH (13:06)
[2017-07-23 17:00] VITALS: BP 92/60; PULSE 122; RESP 18; TEMP 98.5; O2SAT 99
--- NOTE | 2017-07-23 17:26 | PD.TTN ---
Patient Problems 1. Discharge planning 2. Medication compliance 3. Knowledge deficit 4. Lack of coping skills Progress Toward Goals Provider Present: Dr. Vahid Maher Provider Input: started mood stablizer, meets criteria Psych Therapist Input: pt can return to [facility] when stable. Occupational Therapist Input: Occasionally attends very poor impulse control. Chaim Yu Jr, TRANSITIONS RN CARE COORDINATOR Jul 23, 2017 17:26
--- NOTE | 2017-07-23 17:42 | HHI.PYPN ---
Subjective Remarks Patient seen for follow-up, chart reviewed. Discussion she staff reported the patient had become verbally aggressive earlier this morning and had required ETU of Thorazine 50 mg IM for agitation. Patient was found today in his room noted before, cooperative interview. Patient denies any physical complaints at this time denies any difficulty with urination or bowel movement and reported daily drinking well. Patient also reports sleeping well. Patient noted to be somewhat perseverative on questioning but due to recent ETO patient was less activated and able to be redirected. Review of Systems Except as stated in HPI: all other systems reviewed are Neg Mental Status Examination Appearance: Appropriate Consciousness: Alert Orientation: Person Motor Activity: Normal gait Speech: Unremarkable Language: Perseveration Fund of Knowledge: Inadequate Attention and Concentration: Inadequate Memory: Unremarkable Mood: Irritable Affect: Irritable Thought Process & Associations: Other (concrete) Thought Content: Preoccupations Hallucination Type: None Delusion Type: None Suicidal Ideation: No Suicidal Plan: No Suicidal Intention: No Homicidal Ideation: No Homicidal Plan: No Homicidal Intention: No Insight: Poor Judgment: Poor Results Labs Date/Time Source Procedure Growth Status 07/18/17 18:10 Wound Skin Gram Stain - Final Complete 07/18/17 18:10 Wound Culture - Final Group A Beta Strep Complete Vitals/IOs Vital Signs Date Time Temp Pulse Resp B/P (MAP) Pulse Ox O2 Delivery O2 Flow Rate FiO2 07/23/17 17:00 98.5 122 18 92/60 (71) 99 Assessment & Plan Problem List: (1) Intermittent explosive disorder ICD Codes: F63.81 - Intermittent explosive disorder Status: Acute (2) Autism ICD Codes: F84.0 - Autism Status: Acute Assessment & Plan Patient at this time continues to have verbal threats at times of agitation and has required ETO several times since admission which last time was this morning. Patient currently lithium level was 0.6. We'll increase lithium to 300 mg 3 times a day for mood stabilization continue rest of medications. Continue to monitor mood and behavior. Continue to assist patient in ADLs. Discharge planning in progress Justification for Cont. Inpt. At risk for further decompensation at lower level of care Bulmaro Maher MD Jul 23, 2017 17:42
[2017-07-24 05:37] VITALS: BP 115/72; PULSE 103; RESP 18; TEMP 98; O2SAT 99
[2017-07-24] MEDS: QUEtiapine FUMARATE 100 MG TAB PO SCH ×3 (06:10→20:12)
[2017-07-24] MEDS: clonazePAM 1 MG TAB PO SCH ×3 (06:10→20:12)
[2017-07-24] MEDS: DOCUSATE SODIUM 50 MG/SENNA 8.6 MG TAB PO SCH ×2 (10:49→20:12)
[2017-07-24] MEDS: NEOMYCIN/POLYMYXIN/BACITRACIN OINT 15 GM TUBE TOPICAL SCH (10:49)
[2017-07-24] MEDS: LITHIUM CARBONATE 300 MG TAB PO SCH ×3 (10:49→17:28)
[2017-07-24] MEDS: PANTOPRAZOLE SOD 40 MG DELAYED RELEASE TAB PO SCH (10:49)
--- NOTE | 2017-07-24 11:22 | HHI.PYPN ---
Subjective Remarks Patient seen for follow up, chart reviewed. Discussion with nursing staff reported that patient with no behavioral dyscontrol or agitation since yesterday. Patient was found lying in hospital bed noted to be somewhat somnolent but able to wake up partial for interview. Patient denies any physical placed at this time reports eating and drinking well, no diarrhea or constipation, reports tolerating medications well. Patient noted with concrete responses secondary to his intellectual deficits. Review of Systems Except as stated in HPI: all other systems reviewed are Neg Mental Status Examination Appearance: Appropriate Consciousness: Somnolent Orientation: Person Motor Activity: Normal gait Speech: Unremarkable Language: Perseveration Fund of Knowledge: Inadequate Attention and Concentration: Inadequate Memory: Unremarkable Mood: Appropriate Affect: Blunt Thought Process & Associations: Other (concrete) Thought Content: Preoccupations Hallucination Type: None Delusion Type: None Suicidal Ideation: No Suicidal Plan: No Suicidal Intention: No Homicidal Ideation: No Homicidal Plan: No Homicidal Intention: No Insight: Poor Judgment: Poor Results Labs Date/Time Source Procedure Growth Status 07/18/17 18:10 Wound Skin Gram Stain - Final Complete 07/18/17 18:10 Wound Culture - Final Group A Beta Strep Complete Vitals/IOs Vital Signs Date Time Temp Pulse Resp B/P (MAP) Pulse Ox O2 Delivery O2 Flow Rate FiO2 07/24/17 05:37 98.0 103 18 115/72 (86) 99 Assessment & Plan Problem List: (1) Intermittent explosive disorder ICD Codes: F63.81 - Intermittent explosive disorder Status: Acute (2) Autism ICD Codes: F84.0 - Autism Status: Acute Assessment & Plan Patient at this time noted to be somewhat somnolent but has not had any behavioral issues since yesterday and was able to come off her meals and compliant with medications. We'll continue current treatment regimen. Will order basic metabolic panel along with CK levels today. Continue to encourage patient to maintain personal hygiene and participate in groups and activities. Continue to monitor mood and behavior. Discharge planning in progress Justification for Cont. Inpt. Average further compensation a lower level of care Discharge Planning Return back to the half-way when psychiatric stable Bulmaro Maher MD Jul 24, 2017 11:22
[2017-07-24 13:38] LABS: BICARBONATE 28.8 MEQ/L (21.0-32.0); CALCIUM 9.3 MG/DL (8.5-10.1); CREATININE 0.93 MG/DL (0.60-1.30)
[2017-07-24] MEDS: QUEtiapine FUMARATE 200 MG TAB PO SCH (14:44)
[2017-07-24 17:42] VITALS: BP 95/58; PULSE 110; RESP 18; TEMP 100.3; O2SAT 98
[2017-07-25 05:32] VITALS: BP 87/63; PULSE 106; RESP 18; TEMP 98.2; O2SAT 99
[2017-07-25] MEDS: QUEtiapine FUMARATE 100 MG TAB PO SCH ×3 (06:38→20:32)
[2017-07-25] MEDS: clonazePAM 1 MG TAB PO SCH ×3 (06:39→20:33)
[2017-07-25 06:44] VITALS: BP 100/62
[2017-07-25] MEDS: LITHIUM CARBONATE 300 MG TAB PO SCH ×3 (09:00→17:15)
[2017-07-25] MEDS: NEOMYCIN/POLYMYXIN/BACITRACIN OINT 15 GM TUBE TOPICAL SCH (09:00)
[2017-07-25] MEDS: PANTOPRAZOLE SOD 40 MG DELAYED RELEASE TAB PO SCH (09:00)
[2017-07-25] MEDS: DOCUSATE SODIUM 50 MG/SENNA 8.6 MG TAB PO SCH ×2 (09:00→20:32)
[2017-07-25] MEDS: ACETAMINOPHEN 325 MG TAB PO PRN (10:14)
[2017-07-25] MEDS: QUEtiapine FUMARATE 200 MG TAB PO SCH (12:00)
[2017-07-25 17:05] VITALS: BP 92/53; PULSE 93; RESP 18; TEMP 97.7; O2SAT 99
--- NOTE | 2017-07-25 17:23 | HHI.PYPN ---
Subjective Remarks Patient seen for follow up, chart reviewed. Discussion with nursing staff reported that patient has had no behavioral dyscontrol but noted to be mostly in his room. Patient was found sitting in day room, eating lunch. Patient noted to be calm and cooperative with interview requesting more fluids. Patient denies any physical complaints, reports good mood, not noted to be perseverative on questions today. He reports sleeping well. Review of Systems Except as stated in HPI: all other systems reviewed are Neg Mental Status Examination Appearance: Appropriate Consciousness: Alert Orientation: Person Motor Activity: Normal gait Speech: Unremarkable Language: Adequate Fund of Knowledge: Inadequate Attention and Concentration: Inadequate Memory: Unremarkable Mood: Appropriate Affect: Blunt Thought Process & Associations: Other (concrete) Thought Content: Appropriate Hallucination Type: None Delusion Type: None Suicidal Ideation: No Suicidal Plan: No Suicidal Intention: No Homicidal Ideation: No Homicidal Plan: No Homicidal Intention: No Insight: Poor Judgment: Poor Results Labs Date/Time Source Procedure Growth Status 07/18/17 18:10 Wound Skin Gram Stain - Final Complete 07/18/17 18:10 Wound Culture - Final Group A Beta Strep Complete Vitals/IOs Vital Signs Date Time Temp Pulse Resp B/P (MAP) Pulse Ox O2 Delivery O2 Flow Rate FiO2 07/25/17 17:05 97.7 93 18 92/53 (66) 99 Assessment & Plan Problem List: (1) Intermittent explosive disorder ICD Codes: F63.81 - Intermittent explosive disorder Status: Acute (2) Autism ICD Codes: F84.0 - Autism Status: Acute Assessment & Plan Patient with no behavioral disturbances, cooperative with staff. Noted with low BP, elevated CK. Will continue Rutledge 300mg TID, will order Rutledge level in AM. Will decrease quetiapine afternoon dose @ 12pm to 150mg. Continue rest of medications. Monitor for othrostatic hypotension. Encourage patient increase PO fluid intake. Continue to monitor mood and behavior. Continue to assist patient in ADLs. Discharge planning in progress. Justification for Cont. Inpt. At risk for further decompensation if at lower level of care. Discharge Planning return back to retirement. Bulmaro Maher MD Jul 25, 2017 17:23
[2017-07-26 06:00] VITALS: BP 110/61; PULSE 114; RESP 18; TEMP 97.4; O2SAT 100
[2017-07-26] MEDS: QUEtiapine FUMARATE 100 MG TAB PO SCH ×3 (06:23→20:39)
[2017-07-26] MEDS: clonazePAM 1 MG TAB PO SCH ×3 (06:23→20:39)
[2017-07-26 06:32] VITALS: BP 110/76; PULSE 112
[2017-07-26 06:33] VITALS: BP 109/74
[2017-07-26 06:34] VITALS: BP 126/80; PULSE 94
[2017-07-26] MEDS: DOCUSATE SODIUM 50 MG/SENNA 8.6 MG TAB PO SCH ×2 (08:05→20:39)
[2017-07-26] MEDS: PANTOPRAZOLE SOD 40 MG DELAYED RELEASE TAB PO SCH (08:06)
[2017-07-26] MEDS: LITHIUM CARBONATE 300 MG TAB PO SCH ×3 (08:06→17:09)
[2017-07-26] MEDS: NEOMYCIN/POLYMYXIN/BACITRACIN OINT 15 GM TUBE TOPICAL SCH (08:06)
[2017-07-26] MEDS: QUEtiapine FUMARATE 300 MG TAB PO SCH (11:34)
[2017-07-26] MEDS ORDERED: LITH300T3 PO (14:59)
[2017-07-26] MEDS ORDERED: QUET1TAB8 PO (14:59)
[2017-07-26] MEDS ORDERED: CLON2TAB PO (14:59)
[2017-07-26] MEDS ORDERED: QUET1TAB10 PO (14:59)
[2017-07-26] MEDS ORDERED: PERI PO (14:59)
[2017-07-26] MEDS ORDERED: TRIPOIN TOPICAL (15:01)
[2017-07-26] MEDS ORDERED: PANT40TA3 PO (15:01)
--- NOTE | 2017-07-26 15:07 | HHI.PYPN ---
Subjective Remarks Patient seen for follow-up, chart reviewed. Discussion with nursing staff reported that patient patient was calm and compliant with treatment, would at times perseverative on certain questions but has not had any episodes of agitation. Patient presented to mental health court today and was retained on a continuance. Patient was found lying in hospital bed, cooperative. Patient reports having some difficulty with bowel movements denies any other physical complaints, eating drinking well, reports his mood being "good". Review of Systems Except as stated in HPI: all other systems reviewed are Neg Mental Status Examination Appearance: Appropriate Consciousness: Alert Orientation: Person Motor Activity: Normal gait Speech: Unremarkable Language: Adequate Fund of Knowledge: Inadequate Attention and Concentration: Inadequate Memory: Unremarkable Mood: Appropriate Affect: Blunt Thought Process & Associations: Other (concrete) Thought Content: Appropriate Hallucination Type: None Delusion Type: None Suicidal Ideation: No Suicidal Plan: No Suicidal Intention: No Homicidal Ideation: No Homicidal Plan: No Homicidal Intention: No Insight: Poor Judgment: Poor Results Labs Labs reviewed Test 07/26/17 07:35 [place] Level 0.6 MEQ/L Date/Time Source Procedure Growth Status 07/18/17 18:10 Wound Skin Gram Stain - Final Complete 07/18/17 18:10 Wound Culture - Final Group A Beta Strep Complete Vitals/IOs Vital Signs Date Time Temp Pulse Resp B/P (MAP) Pulse Ox O2 Delivery O2 Flow Rate FiO2 07/26/17 06:34 94 126/80 (95) 07/26/17 06:00 97.4 18 100 Assessment & Plan Problem List: (1) Intermittent explosive disorder ICD Codes: F63.81 - Intermittent explosive disorder Status: Acute (2) Autism ICD Codes: F84.0 - Autism Status: Acute Assessment & Plan Patient at this time has not had any behavioral disturbances the past couple of days, has a compliant with treatment. Patient noted to have some of those tension and reported not having had bowel movements couple of days. Hospital consult placed for constipation. Labs ordered for tomorrow lithium level as well as a CK level and basic metabolic panel. Continue recommendations for primary medical team. Patient reports possible discharge tomorrow patient continues with good behavioral control and no agitation. Discharge planning in progress Justification for Cont. Inpt. At risk for decompensation at lower level of care Discharge Planning [facility] care [facility] to his [facility] upon psychiatric stabilization. Bulmaro Maher MD Jul 26, 2017 15:07
[2017-07-26] MEDS ORDERED: BISACODYL 10 MG SUPP RECTAL PRN (15:30)
[2017-07-26] MEDS ORDERED: DOCUSATE SODIUM 50 MG/SENNA 8.6 MG TAB PO ONE (15:30)
[2017-07-26] MEDS ORDERED: POLYETHYLENE GLYCOL 17 GM PKG PO ONE ×2 (15:30→19:45)
[2017-07-26] MEDS ORDERED: BISACODYL 10 MG SUPP RECTAL ONE (15:45)
[2017-07-26] MEDS ORDERED: SOD PHOSPHATE/SOD BIPHOSPHATE (ADULT) ENEMA 133ML RECTAL PRN (15:45)
--- NOTE | 2017-07-26 15:48 | HHI.PR ---
Subjective Remarks Requested to see patient for constipation. Patient has not had a BM in 3 days. Complaining of abdominal discomfort. Denies any fever or chills. Denies any nausea or vomiting. Denies any urinary difficulties. States he occasionally has issues with constipation at home. Objective Vitals Vital Signs Date Time Temp Pulse Resp B/P (MAP) Pulse Ox O2 Delivery O2 Flow Rate FiO2 07/26/17 06:34 94 126/80 (95) 07/26/17 06:33 109/74 (86) 07/26/17 06:32 112 110/76 (87) 07/26/17 06:00 97.4 114 18 110/61 (77) 100 07/25/17 17:05 97.7 93 18 92/53 (66) 99 Result Diagram: 07/24/17 1230 Objective Remarks GENERAL: Well-nourished, well-developed young male patient in NAD. Autistic. Awake and alert. SKIN: Warm and dry. No rash. HEAD: Normocephalic. Atraumatic. EYES: Pupils equal and round. No scleral icterus. No injection or drainage. ENT: No nasal bleeding or discharge. Mucous membranes pink and moist. NECK: Supple. Trachea midline. CARDIOVASCULAR: Regular rate and rhythm. S1, S2 noted. No murmur appreciated. RESPIRATORY: Clear to auscultation. Breath sounds equal bilaterally. GASTROINTESTINAL: Abdomen soft, mildly distended. (+)mild tenderness to palpation diffusely. Hypoactive BS. MUSCULOSKELETAL: No obvious deformities. Extremities without clubbing, cyanosis , or edema. NEUROLOGICAL: Awake and alert. Able to move all extremities spontaneously. No focal neurologic finding appreciated. Normal speech. PSYCHIATRIC: Appropriate mood and affect; insight and judgment normal. Medications and IVs Current Medications Medications (Trade) Dose Ordered Sig/Nadeen Route Start Time Stop Time Status Last Admin (Ativan) 1 mg Q6H PRN PO 07/18/17 10:00 07/23/17 13:06 (Ativan Inj) 1 mg Q6H PRN IM 07/18/17 10:00 07/22/17 08:42 (Tylenol) 650 mg Q4H PRN PO 07/18/17 11:00 07/25/17 10:14 (Milk Of Magnesia Liq) 30 ml DAILY PRN PO 07/18/17 10:00 07/26/17 12:43 (Mag-Al Plus Susp Liq) 30 ml Q6H PRN PO 07/18/17 10:00 (Atarax) 50 mg Q6H PRN PO 07/18/17 12:00 07/22/17 08:42 (KlonoPIN) 2 mg TID@0700,1500,2000 PO 07/18/17 15:00 07/26/17 14:37 (SEROquel) 150 mg BID@0700,1500 PO 07/18/17 15:00 07/26/17 14:37 (SEROquel) 500 mg DAILY@2000 PO 07/18/17 20:00 07/25/17 20:32 (Protonix) 40 mg DAILY PO 07/18/17 12:00 07/26/17 08:06 (Neosporin Oint) 1 applic DAILY TOPICAL 07/19/17 09:00 07/26/17 08:06 (Michaela-Colace) 1 tab BID PO 07/19/17 12:45 07/26/17 08:05 (Lithotabs) 300 mg TID PO 07/23/17 18:00 07/26/17 11:34 (SEROquel) 150 mg DAILY@1200 PO 07/26/17 12:00 07/26/17 11:34 (Dulcolax Supp) 10 mg DAILY PRN RECTAL 07/26/17 15:30 A/P Problem List: (1) Autism ICD Code: F84.0 - Autism Status: Acute (2) Elevated WBC count ICD Code: D72.829 - Elevated white blood cell count, unspecified Assessment and Plan 32-year old male with PMH significant for Autism, intermittent explosive disorder, bipolar disorder, and GERD. Patient Trisha acted following questions about heaven while at halfway. Medical team consulted for constipation. Suicidal Ideations, Intermittent explosive behavior, Autism: under [place] Act from [facility]. - Continue management per psychiatry Constipation - no BM in 3 days. - Michaela Colace 2 tabs now, Miralax 17gm now and repeat dose in 4 hours if no BM - Dulcolax suppository x 1. Enema prn. - KUB ordered - monitor for BM DVT prophylaxis - Patient is ambulatory Problem Qualifiers (1) Elevated WBC count: Qualified Codes: D72.825 - Yaneli Lorenz Jul 26, 2017 15:48
--- NOTE | 2017-07-26 16:29 | RADRPT ---
EXAM DATE/TIME: 07/26/2017 15:52 [facility] COMPARISON: No previous studies available for comparison. INDICATIONS : Abdominal pain. MEDICAL HISTORY : None. SURGICAL HISTORY : None. ENCOUNTER: Initial ACUITY: 1 day PAIN SCORE: 5/10 LOCATION: abdomen FINDINGS: Supine view of the abdomen was performed. Copious stool throughout the large bowel. The abdominal jony wel gas pattern is normal. No abnormal masses, calcifications, or organomegaly is seen. The osseous structures are unremarkable. CONCLUSION: 1. Constipation. Bulmaro Garzon MD on July 26, 2017 at 16:26 Board Certified Radiologist. This report was verified electronically.
[2017-07-26] MEDS ORDERED: DOCUSATE SODIUM 50 MG/SENNA 8.6 MG TAB PO SCH (21:00)
[2017-07-27 06:29] VITALS: BP 96/60; PULSE 88; RESP 16; TEMP 97.3; O2SAT 97
[2017-07-27] MEDS: clonazePAM 1 MG TAB PO SCH ×2 (06:59→14:15)
[2017-07-27] MEDS: QUEtiapine FUMARATE 100 MG TAB PO SCH ×2 (06:59→14:15)
[2017-07-27 07:53] LABS: BICARBONATE 30.2 MEQ/L (21.0-32.0); CALCIUM 9.4 MG/DL (8.5-10.1); CREATININE 0.88 MG/DL (0.60-1.30)
[2017-07-27] MEDS: LITHIUM CARBONATE 300 MG TAB PO SCH ×2 (07:56→12:11)
[2017-07-27] MEDS: PANTOPRAZOLE SOD 40 MG DELAYED RELEASE TAB PO SCH (07:56)
[2017-07-27] MEDS: DOCUSATE SODIUM 50 MG/SENNA 8.6 MG TAB PO SCH (07:57)
[2017-07-27] MEDS: NEOMYCIN/POLYMYXIN/BACITRACIN OINT 15 GM TUBE TOPICAL SCH (07:57)
[2017-07-27] MEDS: QUEtiapine FUMARATE 300 MG TAB PO SCH (12:11)
--- NOTE | 2017-07-27 12:40 | HHI.DS ---
Psychiatry Discharge Summary Inpatient Psychiatric care?: Yes Advance Directive: No Reason Not Provided: Due to Patient Condition Mental Health AdvanceDirective: No Health Care Proxy: No Admission Admission Date Jul 18, 2017 at 10:01 Admission Diagnosis: (1) Intermittent explosive disorder ICD Code: F63.81 - Intermittent explosive disorder (2) Autism ICD Code: F84.0 - Autism Brief History Patient is a 32 y/o man, single, domiciled in correction, unemployed, past psychiatric history of autism spectrum disorder, intermittent explosive disorder, prior psychiatric admission (recently discharged from [facility]), no prior suicide attempts, history of self injurious behavior when angry who was brought in under BA after patient had thought of stabbing staff and thoughts of breaking his own neck which he was admitted to the inpatient psychiatry unit for further evaluation and management. Patient was recently discharged from the inpatient unit and had endorsed suicidal and homicidal ideations to the staff and was brought back to the hospital under [place] Act. Patient was found walking in his room and noted to be calm initially but began perseverating on questions regarding foul language with follow up questions to any answer junior technical writer gave and noted to start to become irritable and required redirection but was not noted to be physically aggressive toward junior technical writer although he was noted to start hitting the wall but stopped after he was told to stop. Patient later was taken to shower. 3D Specialist spoke with patient's mother who stated that the correction had difficulty filling out his medications which the patient did not receive his evening nor his morning dose which may have caused the patient to be irritable that led to the circumstances which brought him back to the hospital. Treatment plan and consent for medications reviewed with mother over the phone. The patient is a 32 years old man, domiciled in a correction, single, unemployed, with psychiatric history of autism spectrum disorder, intermittent explosive disorder, poor impulse control, history of aggressive behavior, multiple prior psychiatric admissions, no previous suicidal attempts, but probating history of self inflicting harm to self, who was just discharged from [facility] days ago, he has no medical history, who was brought back to [facility] after discharge the Rico act due to aggressive behavior, and making suicidal and homicidal statements. On psychiatric evaluation today the patient is found pacing in his room, he has several magazines over his bed. He reports that he feels okay, denies suicidal and homicidal ideation, he denies visual and auditory hallucinations. Very restless, but perseverant, asking the same question over and over. He reported that he has been taking his medications, no significant side effects. In the unit he has been displaying episodic agitation, but he is usually verbally de-escalated Tobacco Use In Past 30 Days: No Tobacco Past 30 Days Alcohol Use: Never Hospital Course Patient is a 32 y/o man, single, domiciled in correction, unemployed, past psychiatric history of autism spectrum disorder, intermittent explosive disorder, prior psychiatric admission (recently discharged from [facility]), no prior suicide attempts, history of self injurious behavior when angry who was brought in under BA after patient had thought of stabbing staff and thoughts of breaking his own neck which he was admitted to the inpatient psychiatry unit for further evaluation and management. Patient was continued on quetiapine and titrated to 150/150/150/500, clonazepam 2 mg by mouth 3 times a day, started on lithium 300 mg by mouth daily and titrated up to 3 times a day. Patient lithium levels prior discharge were within therapeutic range. She initially had a slightly elevated CK but with hydration was trending down. Patient had only one episode of agitation requiring Thorazine ETO but remainder hospitalization remained uneventful which patient was noted to be calm and cooperative with staff and no behavioral disturbances or agitations since. Bupropion 150 mg by mouth twice a day, hydroxyzine 10 mg by mouth daily, Abilify 30 mg by mouth daily, sertraline 200 mg by mouth at bedtime and continued on medication management for medical issues. He was noted to be cooperative with staff as well as being future oriented and wanted to return back home. Patient was adherent to medication regimen and recommendations as per primary medical team. Upon discharge patient stated feeling good, stated feeling okay with returning back to residential facility; noted to be calm and cooperative with staff. He agreed to continuing medical recommendations, treatment and cooperate for continuity of care. Patient; denies SI, HI, AVH or delusions. Supportive psychotherapy provided. Results Blood Pressure 96 / 60 Vital Signs Date Time Temp Pulse Resp B/P (MAP) Pulse Ox O2 Delivery O2 Flow Rate FiO2 07/27/17 06:29 97.3 88 16 96/60 (72) 97 Laboratory Tests Test 07/26/17 07:35 07/27/17 06:09 07/27/17 06:33 Blood Urea Nitrogen 6 MG/DL (7-18) Total Creatine Kinase 589 U/L (39-308) Laboratory Results Test 07/27/17 06:33 [place] Level 0.8 MEQ/L (0.5-1.5) Summary of Procedures None Imaging Last Impressions Abdomen X-Ray 07/26/17 0000 Signed Impressions: Service Date/Time: July 15:52 - CONCLUSION: 1. Constipation. Bulmaro Garzon MD Pending results at discharge: No Medications # of Antipsychotic meds at D/C: 1 Approp Antipsych med options 1 - Minimum of three failed multiple trials of monotherapy. 2 - Documented plan to taper to monotherapy due to previous use of multiple meds OR cross-taper in progress at D/C. 3 - Documentation of augmentation of Clozapine. 4 - Justification other than those listed in allowable values 1-3, document here : Discharge Discharge Date: Jul 27, 2017 Discharge Diagnosis: (1) Intermittent explosive disorder ICD Code: F63.81 - Intermittent explosive disorder Status: Acute (2) Autism ICD Code: F84.0 - Autism Status: Acute Pt Condition on Discharge: Stable Discharge Disposition: ACLF/SHELTER Discharge Instructions Diet Instructions: As Tolerated, No Restrictions Scheduled Appointment: Dr. Wagner Discharge Time > 30 minutes Mental Status Examination Appearance: Appropriate Consciousness: Alert Orientation: Person Motor Activity: Normal gait Speech: Unremarkable Language: Adequate Fund of Knowledge: Inadequate Attention and Concentration: Inadequate Memory: Unremarkable Mood: Appropriate Affect: Blunt Thought Process & Associations: Other (concrete) Thought Content: Appropriate Hallucination Type: None Delusion Type: None Suicidal Ideation: No Suicidal Plan: No Suicidal Intention: No Homicidal Ideation: No Homicidal Plan: No Homicidal Intention: No Insight: Poor Judgment: Poor Discharge/Advance Care Plan Health Problems: (1) Intermittent explosive disorder (2) Autism Goals to promote your health * To prevent worsening of your condition and complications * To maintain your health at the optimal level Directions to meet your goals Take your medications as prescribed Follow your dietary instruction Follow activity as directed Keep your appointments as scheduled Take your immunizations and boosters as scheduled If your symptoms worsen call your PCP, if no PCP go to Urgent Care Center or Emergency Room For 15/01 questions related to your inpatient stay or results of tests pending at discharge, please contact Dr. Bulmaro Maher at Smoking is Dangerous to Your Health. Avoid second hand smoking Bulmaro Maher MD Jul 27, 2017 12:40
[2017-07-27] MEDS ORDERED: MILKSUS PO (13:17)
[2017-07-27] MEDS ORDERED: MIRA3350 PO (13:17)
--- NOTE | 2017-07-27 13:47 | PD.TTN ---
Patient Problems 1. Discharge planning 2. Medication compliance 3. Knowledge deficit 4. Lack of coping skills Progress Toward Goals Provider Present: Dr. Vahid Maher Provider Input: started mood stablizer, meets criteria 07/27/17 Patient is doing well will discharge to facility Nurse(s) Input: 07/27/17 Patient has improved. Very discharged focused. Repeats and easily redirected Psychiatric Counselors Present: ALEX MarshallChani Psych Therapist Input: pt can return to [facility] when stable. 07/27/17 Patient seen in his room. Patient presents childlike, cooperative but constricted. Patient reports hearing voices but no command voices to harmself or others. Patient made good eye contact. Patient is medication compliant, eating and sleeping ok. Patient is being discharged back to his facility. Group Spec/RT/OT/GIRALDO Present: THERON Farah Group Spec/RT/OT/GIRALDO Input: 07/27/17 Patient attends and engages in the group activities. Patient is childlike and needs to be redirected Occupational Therapist Input: Occasionally attends very poor impulse control. Anita Lopes [facility] Jul 27, 2017 13:47
== END 2017-07-27 14:55 | DRG 883 ==
LOC: NEDAMB 09:32 → NEDA 10:01 → H270 17:09
PROVIDERS: ADMIT Student in an Organized Health Care Education/Training Program; ATTEND Student in an Organized Health Care Education/Training Program
DX: F63.81 Intermittent explosive disorder (principal); F84.0 Autistic disorder; R45.850 Homicidal ideations; R45.851 Suicidal ideations; L03.90 Cellulitis, unspecified; Z91.5 Personal history of self-harm; F31.9 Bipolar disorder, unspecified; K21.9 Gastro-esophageal reflux disease without esophagitis; F79 Unspecified intellectual disabilities; K59.00 Constipation, unspecified; L98.9 Disorder of the skin and subcutaneous tissue, unspecified; K44.9 Diaphragmatic hernia without obstruction or gangrene
CPT/HCPCS: 74018; 80048; 80178; 81001; 82550; 82552; 84443; 85025; 87070; 87205; 93005; J1200; J2060; J3230

== ENCOUNTER 2017-10-20 16:56 | Emergency (ER) | payer MEDICAID, OTHER ==
[~2017-10-20] VITALS: Ht 177.8 cm; Wt 60.0 kg
[~2017-10-20 16:56] MED LIST changes: -DOXY100T PO; +LITH300T3 PO; +MILKSUS PO; +MIRA3350 PO; -PANT40TA3 PO; +QUET1TAB10 PO; -QUET1TAB9 PO; -chlorproMAZINE PO
--- NOTE | 2017-10-20 17:15 | PD ---
HPI Chief Complaint: Psychiatric Symptoms Time Seen by Provider: 17:12 Travel History International Travel<30 days: No Contact w/Intl Traveler<30days: No History of Present Illness HPI 32-year-old male with history of autism with intermittent explosive disorder, is brought in under the [place] act for increased aggressive behavior at his [place]. He was reported to be punching and slapping the bee, and the acting aggressively towards his caregiver including throwing items. Law enforcement was called, but he continued to act aggressively was so he was brought in in handcuffs under the [place] act. He has been reportedly taking his medications as prescribed. Patient is not a reliable historian due to his mental illness condition. He reports no complaints of acute pain. [facility] Past Medical History Arthritis: No Asthma: No Autoimmune Disease: No Bipolar Disorder: Yes Anxiety: Yes Depression: Yes Heart Rhythm Problems: No Cancer: No Cardiovascular Problems: No Chemotherapy: No Chest Pain: No Congestive Heart Failure: No COPD: No Cerebrovascular Accident: No Developmental Delay: Yes (autism, INTELLECTUAL DISABILITY) Diabetes: No Endocrine: No Gastrointestinal Disorders: Yes (CONSTIPATION, REFLUX, GASTRITIS, MILD ESOPHAGITIS) GERD: Yes Genitourinary: No Headaches: No Hiatal Hernia: Yes Heparin Induced Thrombocytopen: No Hypertension: No Immune Disorder: No Implanted Vascular Access Dvce: No Kidney Stones: No Musculoskeletal: No Neurologic: Yes Psychiatric: Yes (Intermittent Explosive and Autism) Reproductive: No Respiratory: No Immunizations Current: Yes Migraines: No Radiation Therapy: No Renal Failure: No Schizophrenia: Yes Seizures: No Sickle Cell Disease: No Sleep Apnea: No Thyroid Disease: No Ulcer: No Past Surgical History Abdominal Surgery: No AICD: No Arteriovenous Shunt: No Cardiac Surgery: No Ear Surgery: No Endocrine Surgery: No Eye Surgery: No Genitourinary Surgery: No Gynecologic Surgery: No Insulin Pump: No Joint Replacement: No Neurologic Surgery: No Pacemaker: No Thoracic Surgery: No Social History Alcohol Use: No Tobacco Use: No Substance Use: No Allergies-Medications (Allergen,Severity, Reaction): Coded Allergies: Sulfa (Sulfonamide Antibiotics) (Unverified Allergy, Severe, 10/20/17) Yeast (Unverified Allergy, Severe, 10/20/17) ipratropium (Unverified Allergy, Severe, 10/20/17) peanut (Verified Allergy, Severe, 10/20/17) soy (Unverified Allergy, Severe, 10/20/17) wheat (Unverified Allergy, Severe, 10/20/17) divalproex sodium (Unverified Allergy, Unknown, 10/20/17) benztropine (Verified Adverse Reaction, Mild, 10/20/17) LOW WHITE PLATELET COUNT AND TREMOR haloperidol (Verified Adverse Reaction, Mild, 10/20/17) TREMOR, LOW WHITE PLATELET COUNT Uncoded Allergies: Cow's Milk (Allergy, Severe, 10/04/11) Reported Meds & Prescriptions Reported Meds & Active Scripts Active Miralax Powder (Polyethylene Glycol 3350 Powder) 17 Gm Powd 17 Gm PO DAILY Mix and dissolve one measuring cap-ful (17 grams) in water or juice. Milk of Magnesia Liq (Magnesium Hydroxide) 400 Mg/5 Ml Susp 30 Ml PO DAILY PRN Triple Antibiotic 3.5-400-5000 (Ijlmqcjc-Mjkwffkhew-Kwdoidvjj) 3.5 Mg-400 Unit-5 ,000 Unit/Gram Oin 1 Applic TOPICAL DAILY 30 Days Spray Carbonate 300 Mg Tab 300 Mg PO TID 30 Days Gnp Senna Plus 8.6-50 mg (Sennosides-Docusate Sodium) 8.6 Mg-50 Mg Tab 1 Tab PO BID 30 Days Clonazepam 2 Mg Tab 2 Mg PO TID@0700,1500,2000 30 Days Reported Latuda (Lurasidone) 60 Mg Tab 60 Mg PO DAILY Seroquel (Quetiapine Fumarate) 300 Mg Tab 300 Mg PO HS Seroquel (Quetiapine Fumarate) 200 Mg Tab 200 Mg PO HS Seroquel (Quetiapine Fumarate) 100 Mg Tab 150 Mg PO TID Omeprazole 20 Mg Tab 20 Mg PO DAILY Spray Carbonate 150 Mg Cap 150 Mg PO DAILY Multi-Vitamin Daily (Multiple Vitamin) 1 Tab Tab 1 Tab PO DAILY Review of Systems ROS Limitations: Clinical Condition, Uncooperative, Psychotic, Poor Historian Except as stated in HPI: all other systems reviewed are Neg General / Constitutional: No: Fever Eyes: No: Visual changes HENT: No: Headaches Cardiovascular: No: Chest Pain or Discomfort Respiratory: No: Shortness of Breath Gastrointestinal: No: Abdominal Pain Genitourinary: No: Dysuria Musculoskeletal: No: Pain Skin: No Rash Neurologic: No: Weakness Psychiatric: No: Depression Endocrine: No: Polydipsia Hematologic/Lymphatic: No: Easy Bruising Physical Exam Exam Limitations: Clinical Condition, Poor Historian, Uncooperative, Psychotic Narrative GENERAL: Patient appears in no obvious distress. SKIN: Warm and dry. Normal color. Normal turgor. No acute signs of injury HEAD: Atraumatic. Normocephalic. EYES: Pupils equal and round. No scleral icterus. No injection or drainage. ENT: No nasal bleeding or discharge. Mucous membranes pink and moist. Pharynx is clear. Airways patent. NECK: Trachea midline. Supple and nontender. CARDIOVASCULAR: Regular rate and rhythm. RESPIRATORY: No accessory muscle use. Clear to auscultation. Breath sounds equal bilaterally. MUSCULOSKELETAL: Extremities without clubbing, cyanosis, or edema. No obvious deformities. NEUROLOGICAL: Awake and alert. No obvious cranial nerve deficits. Motor grossly within normal limits. Five out of 5 muscle strength in the arms and legs. Normal speech. PSYCHIATRIC: Appropriate mood and affect; insight and judgment normal. Data Data Last Documented VS Vital Signs Date Time Temp Pulse Resp B/P (MAP) Pulse Ox O2 Delivery O2 Flow Rate FiO2 10/20/17 17:27 98.5 95 20 106/75 (85) 99 Room Air Orders Orders Complete Blood Count With Diff (10/20/17 17:12) Comprehensive Metabolic Panel (10/20/17 17:12) Thyroid Stimulating Hormone (10/20/17 17:12) Urinalysis - C+S If Indicated (10/20/17 17:12) Psych Screen (10/20/17 17:12) Spray (Li) (10/20/17 17:12) Drug Screen, Random Urine (10/20/17 17:12) Lorazepam (Ativan) (10/20/17 17:45) Diphenhydramine (Benadryl) (10/20/17 17:45) [facility] Medical Decision Making Medical Screen Exam Complete: Yes Emergency Medical Condition: Yes Medical Record Reviewed: Yes Differential Diagnosis Rico act. Autism. Aggressive behavior. Narrative Course Patient appears medically stable at time of exam. Psychiatric labs ordered including CBC, CMP, urinalysis, urine drug screen. Spray level is ordered as well. Psych screen is ordered. Patient is medically cleared for psychiatric evaluation. Condition: Stable Severo Alford Oct 20, 2017 17:15
[2017-10-20 17:27] VITALS: BP 106/75; PULSE 95; RESP 20; TEMP 98.5; O2SAT 99
[2017-10-20] MEDS ORDERED: LORazepam 2 MG TAB PO ONE (17:45)
[2017-10-20] MEDS ORDERED: diphenhydrAMINE HCL 50 MG CAP PO ONE (17:45)
[2017-10-20] MEDS ORDERED: OMEP20TA93 PO (17:53)
[2017-10-20] MEDS ORDERED: LITH150C PO (17:53)
[2017-10-20] MEDS ORDERED: SERO100T PO (18:01)
[2017-10-20] MEDS ORDERED: SERO200T PO (18:01)
[2017-10-20] MEDS ORDERED: LURA1TAB2 PO ×2 (18:01→19:46)
[2017-10-20] MEDS ORDERED: SERO300T PO (18:01)
[2017-10-20 19:21] LABS: AUTOMATED NEUTROPHIL # 4.1 TH/MM3 (1.8-7.7); BASOPHIL % 0.3 % (0.0-2.0); EOSINOPHIL # 0.4 TH/MM3 (0-0.4); EOSINOPHIL % 5.9 % (0.0-4.0); HEMATOCRIT 43.5 % (39.0-51.0); HEMOGLOBIN 14.8 GM/DL (13.0-17.0); LYMPH % 31.2 % (9.0-44.0); LYMPHOCYTE # 2.3 TH/MM3 (1.0-4.8); MEAN CELL VOLUME 85.3 FL (80.0-100.0); MONO % 7.3 % (0.0-8.0); MONOCYTE # 0.5 TH/MM3 (0-0.9); NEUT % 55.3 % (16.0-70.0); PLATELET COUNT 228 TH/MM3 (150-450); RED CELL DISTRIBUTION WIDTH 14.9 % (11.6-17.2); WHITE BLOOD COUNT 7.5 TH/MM3 (4.0-11.0)
[2017-10-20 19:56] LABS: AST (GOT) 19 U/L (15-37); BICARBONATE 27.1 MEQ/L (21.0-32.0); BLOOD UREA NITROGEN 15 MG/DL (7-18); CALCIUM 8.8 MG/DL (8.5-10.1); CHLORIDE 108 MEQ/L (98-107); CREATININE 0.93 MG/DL (0.60-1.30); GLOMERULAR FILTRATION RATE 93 ML/MIN (>89); GLUCOSE,RANDOM 84 MG/DL (74-106); SODIUM (NA) 142 MEQ/L (136-145)
[2017-10-20 20:08] LABS: ALKALINE PHOSPHATASE 81 U/L (45-117); ALT (GPT) 21 U/L (12-78); TOTAL BILIRUBIN ADULT 0.4 MG/DL (0.2-1.0); TOTAL PROTEIN 7.6 GM/DL (6.4-8.2)
[2017-10-20] MEDS ORDERED: OLANZapine IM 10 MG VIAL IM ONE (20:15)
[2017-10-20 20:52] VITALS: BP 134/85; PULSE 84; RESP 15; TEMP 98.6; O2SAT 95
[2017-10-20 22:16] LABS: BILIRUBIN, URINE NEG (NEG); BLOOD, URINE NEG (NEG); GLUCOSE,URINE NEG (NEG); KETONE, URINE NEG (NEG); MUCUS URINE FEW /lpf (OCC); NITRITE,URINE NEG (NEG); URINE COLOR LIGHT-YELLOW (YELLW/STRAW); URINE LEUKOCYTE ESTERASE NEG (NEG)
[2017-10-21 00:30] VITALS: BP 92/59; PULSE 62; RESP 18; TEMP 98.5; O2SAT 100
--- NOTE | 2017-10-21 12:30 | PD ---
History of Present Illness Chief Complaint: Psychiatric Symptoms Time Seen by Provider: 12:00 Travel History International Travel<30 Days: No Contact w/Intl Traveler<30days: No Known affected area: No Legal Status Legal Status: Rico Act Rico Act Signed By: Jairo Singh History of Present Illness: History of Present Illness HPI 32-year-old, single male residing in a correction, with history of autism spectrum disorder, intermittent explosive disorder, who is brought in under the Rico act for increased aggressive behavior at his G[place]. He was reported to be punching and slapping the bee, and acting aggressively towards his caregiver including throwing items. Law enforcement was called, but he continued to act aggressively therefore he was placed under a Rico act and brought to the hospital for evaluation. The report goes on to state that he had been awake since 2 in the morning and that this possibly was a reason for his behavior. The patient was monitor and secure environment and he presented no evidence of any agitation, he was not aggressive, and his behaviors are reported to be within reasonable parameters. Electronic medical record is reviewed. He has been admitted to our inpatient psychiatric unit as recently as July 182017 due to aggressive behaviors. Olya ROSS has spoken with the patient's mother this morning regarding current status and disposition. The patient is seen in J pod. He is awake and alert. He engages in repetitive questioning and self soothing behaviors such as waving his hands. He asked " why did I punched the wall. Where would I go if I hit someone. "When he has asked why he punched the wall he states that he was upset because" Ms. Fang did not answer my question about staff schedule". It is noted on previous admissions that the patient has identified this specific staff member as someone who he has had difficulties interacting with. It is reported that the patient is medication compliant. He slept well. He does not present evidence at this time of any psychosis, no satish, no suicidal or homicidal ideation, intent or plan. PFSH Past Medical History Arthritis: No Asthma: No Autoimmune Disease: No Bipolar Disorder: Yes Anxiety: Yes Depression: Yes Heart Rhythm Problems: No Cancer: No Cardiovascular Problems: No Chemotherapy: No Chest Pain: No Congestive Heart Failure: No COPD: No Cerebrovascular Accident: No Developmental Delay: Yes (autism, INTELLECTUAL DISABILITY) Diabetes: No Endocrine: No Gastrointestinal Disorders: Yes (CONSTIPATION, REFLUX, GASTRITIS, MILD ESOPHAGITIS) GERD: Yes Genitourinary: No Headaches: No Hiatal Hernia: Yes Heparin Induced Thrombocytopen: No Hypertension: No Immune Disorder: No Implanted Vascular Access Dvce: No Kidney Stones: No Musculoskeletal: No Neurologic: Yes Psychiatric: Yes (Intermittent Explosive and Autism) Reproductive: No Respiratory: No Immunizations Current: Yes Migraines: No Radiation Therapy: No Renal Failure: No Schizophrenia: Yes Seizures: No Sickle Cell Disease: No Sleep Apnea: No Thyroid Disease: No Ulcer: No Past Surgical History Surgical History: No Previous Surgery Abdominal Surgery: No AICD: No Arteriovenous Shunt: No Cardiac Surgery: No Ear Surgery: No Endocrine Surgery: No Eye Surgery: No Genitourinary Surgery: No Gynecologic Surgery: No Insulin Pump: No Joint Replacement: No Neurologic Surgery: No Pacemaker: No Thoracic Surgery: No Psychiatric History Psychiatric History Hx Psychiatric Treatment: Patient currently sees Dr. Vásquez as an outpatient. It is reported he is medication compliant. History of Inpatient Treatment: Yes ([facility] June 2017.) Guns or firearms in home: No Social History Single, never , resident of a correction since 2010. Unemployed. Hx Alcohol Use: No Hx Tobacco Use: No Hx Substance Use: No Hx of Substance Use Treatment: No Allergies-Medications (Allergen,Severity, Reaction): Coded Allergies: Sulfa (Sulfonamide Antibiotics) (Unverified Allergy, Severe, 10/20/17) Yeast (Unverified Allergy, Severe, 10/20/17) ipratropium (Unverified Allergy, Severe, 10/20/17) peanut (Verified Allergy, Severe, 10/20/17) soy (Unverified Allergy, Severe, 10/20/17) wheat (Unverified Allergy, Severe, 10/20/17) divalproex sodium (Unverified Allergy, Unknown, 10/20/17) benztropine (Verified Adverse Reaction, Mild, 10/20/17) LOW WHITE PLATELET COUNT AND TREMOR haloperidol (Verified Adverse Reaction, Mild, 10/20/17) TREMOR, LOW WHITE PLATELET COUNT Uncoded Allergies: Cow's Milk (Allergy, Severe, 10/04/11) Reported Meds & Prescriptions Reported Meds & Active Scripts Active Miralax Powder (Polyethylene Glycol 3350 Powder) 17 Gm Powd 17 Gm PO DAILY Mix and dissolve one measuring cap-ful (17 grams) in water or juice. Milk of Magnesia Liq (Magnesium Hydroxide) 400 Mg/5 Ml Susp 30 Ml PO DAILY PRN Triple Antibiotic 3.5-400-5000 (Olwryrdu-Rwwkqlxdjg-Mxqtsvjgs) 3.5 Mg-400 Unit-5 ,000 Unit/Gram Oin 1 Applic TOPICAL DAILY 30 Days [place] Carbonate 300 Mg Tab 300 Mg PO TID 30 Days Gnp Senna Plus 8.6-50 mg (Sennosides-Docusate Sodium) 8.6 Mg-50 Mg Tab 1 Tab PO BID 30 Days Clonazepam 2 Mg Tab 2 Mg PO TID@0700,1500,2000 30 Days Reported Latuda (Lurasidone) 60 Mg Tab 60 Mg PO DAILY@5PM Latuda (Lurasidone) 60 Mg Tab 60 Mg PO DAILY Seroquel (Quetiapine Fumarate) 300 Mg Tab 300 Mg PO HS Seroquel (Quetiapine Fumarate) 200 Mg Tab 200 Mg PO HS Seroquel (Quetiapine Fumarate) 100 Mg Tab 150 Mg PO TID Omeprazole 20 Mg Tab 20 Mg PO DAILY [place] Carbonate 150 Mg Cap 150 Mg PO DAILY Multi-Vitamin Daily (Multiple Vitamin) 1 Tab Tab 1 Tab PO DAILY Review of Systems ROS Limitations: Poor Historian Mental Status Examination Appearance: Appropriate ([facility] and maintaining basic hygiene) Consciousness: Alert Orientation: x4 Motor Activity: Normal gait Speech: Other (Repetitive questioning. High pitch) Language: Adequate Fund of Knowledge: Inadequate Attention and Concentration: Easily Distracted Memory: Unremarkable Mood: Appropriate Affect: Appropriate Thought Process & Associations: Intact (Perseverates on one particular subject) Thought Content: Appropriate Hallucination Type: None Delusion Type: None Suicidal Ideation: No Suicidal Plan: No Suicidal Intention: No Homicidal Ideation: No Homicidal Plan: No Homicidal Intention: No Insight: Poor Judgment: Impulsive MDM Medical Decision Making Medical Record Reviewed: Yes Assessment/Plan 32-year-old male with history of autism spectrum disorder, intermittent explosive disorder who presents under a [place] act initiated by law enforcement after the patient is alleged to have been punching and slapping the bee as well as acting aggressively towards his caregiver including throwing items. The patient has been monitored in secure environment and has presented no evidence of agitation or aggressive behavior and has been redirectable with verbal prompting. He does not present evidence of psychosis or satish. There is no suicidal or homicidal ideation. It is reported that he is medication compliant. Patient at this time does not meet criteria for inpatient psychiatric treatment or to remain under the Rico act. His episodes of agitation and some aggressive are as a result of his autism. The Rico act as lifted. Psychiatrically clear for discharge from the ED Orders Orders Complete Blood Count With Diff (10/20/17 17:12) Comprehensive Metabolic Panel (10/20/17 17:12) Thyroid Stimulating Hormone (10/20/17 17:12) Urinalysis - C+S If Indicated (10/20/17 17:12) Psych Screen (10/20/17 17:12) [place] (Li) (10/20/17 17:12) Drug Screen, Random Urine (10/20/17 17:12) Lorazepam (Ativan) (10/20/17 17:45) Diphenhydramine (Benadryl) (10/20/17 17:45) Olanzapine Inj (Zyprexa Inj) (10/20/17 20:15) Diet Regular Basic (10/21/17 Breakfast) Diet Regular Basic (10/21/17 Lunch) Results Vital Signs Date Time Temp Pulse Resp B/P (MAP) Pulse Ox O2 Delivery O2 Flow Rate FiO2 10/21/17 00:30 98.5 62 18 92/59 (70) 100 Room Air 10/20/17 20:52 98.6 84 15 134/85 (101) 95 Room Air 10/20/17 17:27 98.5 95 20 106/75 (85) 99 Room Air Laboratory Tests Test 10/20/17 18:05 10/20/17 21:50 White Blood Count 7.5 Red Blood Count 5.10 Hemoglobin 14.8 Hematocrit 43.5 Mean Corpuscular Volume 85.3 Mean Corpuscular Hemoglobin 29.0 Mean Corpuscular Hemoglobin Concent 34.0 Red Cell Distribution Width 14.9 Platelet Count 228 Mean Platelet Volume 9.0 Neutrophils (%) (Auto) 55.3 Lymphocytes (%) (Auto) 31.2 Monocytes (%) (Auto) 7.3 Eosinophils (%) (Auto) 5.9 Basophils (%) (Auto) 0.3 Neutrophils # (Auto) 4.1 Lymphocytes # (Auto) 2.3 Monocytes # (Auto) 0.5 Eosinophils # (Auto) 0.4 Basophils # (Auto) 0.0 CBC Comment DIFF FINAL Differential Comment Blood Urea Nitrogen 15 Creatinine 0.93 Random Glucose 84 Total Protein 7.6 Albumin 4.0 Calcium Level 8.8 Alkaline Phosphatase 81 Aspartate Amino Transf (AST/SGOT) 19 Alanine Aminotransferase (ALT/SGPT) 21 Total Bilirubin 0.4 Sodium Level 142 Potassium Level 3.6 Chloride Level 108 Carbon Dioxide Level 27.1 Anion Gap 7 Estimat Glomerular Filtration Rate 93 Thyroid Stimulating Hormone 3rd Gen 2.690 [place] Level 0.8 Urine Color LIGHT-YELLOW Urine Turbidity CLEAR Urine pH 7.0 Urine Specific [place] 1.013 Urine Protein NEG Urine Glucose (UA) NEG Urine Ketones NEG Urine Occult Blood NEG Urine Nitrite NEG Urine Bilirubin NEG Urine Urobilinogen LESS THAN 2.0 Urine Leukocyte Esterase NEG Urine RBC 1 Urine WBC 1 Urine Mucus FEW Microscopic Urinalysis Comment CULT NOT INDICATED Urine Opiates Screen NEG Urine Barbiturates Screen NEG Urine Amphetamines Screen NEG Urine Benzodiazepines Screen POS Urine Cocaine Screen NEG Urine Cannabinoids Screen NEG Diagnosis Primary Impression: Autism Additional Impression: Intermittent explosive disorder Psychiatrically Cleared: Yes Med/ Other Pt Specific Info: No Change to Meds Disposition: 01 DISCHARGE HOME Condition: Stable Problem Qualifiers Chhaya Chanel Oct 21, 2017 12:30
--- NOTE | 2017-10-21 13:30 | PD ---
Physical Exam Date Seen by Provider: Oct 21, 2017 Time Seen by Provider: 13:29 Narrative 32-year-old male with history of autism spectrum disorder, was brought in under the Rico act last evening and medically cleared for psychiatric evaluation. Patient has been evaluated by psychiatric staff and deemed psychiatrically stable for discharge back to his assisted living facility. Patient is to follow with his regular primary care physician and psychiatrist. He remains medically stable at time of discharge. Data Data Last Documented VS Vital Signs Date Time Temp Pulse Resp B/P (MAP) Pulse Ox O2 Delivery O2 Flow Rate FiO2 10/21/17 00:30 98.5 62 18 92/59 (70) 100 Room Air Orders Orders Complete Blood Count With Diff (10/20/17 17:12) Comprehensive Metabolic Panel (10/20/17 17:12) Thyroid Stimulating Hormone (10/20/17 17:12) Urinalysis - C+S If Indicated (10/20/17 17:12) Psych Screen (10/20/17 17:12) [place] (Li) (10/20/17 17:12) Drug Screen, Random Urine (10/20/17 17:12) Lorazepam (Ativan) (10/20/17 17:45) Diphenhydramine (Benadryl) (10/20/17 17:45) Olanzapine Inj (Zyprexa Inj) (10/20/17 20:15) Diet Regular Basic (10/21/17 Breakfast) Diet Regular Basic (10/21/17 Lunch) Labs Laboratory Tests Test 10/20/17 18:05 10/20/17 21:50 White Blood Count 7.5 TH/MM3 Red Blood Count 5.10 MIL/MM3 Hemoglobin 14.8 GM/DL Hematocrit 43.5 % Mean Corpuscular Volume 85.3 FL Mean Corpuscular Hemoglobin 29.0 PG Mean Corpuscular Hemoglobin Concent 34.0 % Red Cell Distribution Width 14.9 % Platelet Count 228 TH/MM3 Mean Platelet Volume 9.0 FL Neutrophils (%) (Auto) 55.3 % Lymphocytes (%) (Auto) 31.2 % Monocytes (%) (Auto) 7.3 % Eosinophils (%) (Auto) 5.9 % Basophils (%) (Auto) 0.3 % Neutrophils # (Auto) 4.1 TH/MM3 Lymphocytes # (Auto) 2.3 TH/MM3 Monocytes # (Auto) 0.5 TH/MM3 Eosinophils # (Auto) 0.4 TH/MM3 Basophils # (Auto) 0.0 TH/MM3 CBC Comment DIFF FINAL Differential Comment Blood Urea Nitrogen 15 MG/DL Creatinine 0.93 MG/DL Random Glucose 84 MG/DL Total Protein 7.6 GM/DL Albumin 4.0 GM/DL Calcium Level 8.8 MG/DL Alkaline Phosphatase 81 U/L Aspartate Amino Transf (AST/SGOT) 19 U/L Alanine Aminotransferase (ALT/SGPT) 21 U/L Total Bilirubin 0.4 MG/DL Sodium Level 142 MEQ/L Potassium Level 3.6 MEQ/L Chloride Level 108 MEQ/L Carbon Dioxide Level 27.1 MEQ/L Anion Gap 7 MEQ/L Estimat Glomerular Filtration Rate 93 ML/MIN Thyroid Stimulating Hormone 3rd Gen 2.690 uIU/ML [place] Level 0.8 MEQ/L Urine Color LIGHT-YELLOW Urine Turbidity CLEAR Urine pH 7.0 Urine Specific [place] 1.013 Urine Protein NEG mg/dL Urine Glucose (UA) NEG mg/dL Urine Ketones NEG mg/dL Urine Occult Blood NEG Urine Nitrite NEG Urine Bilirubin NEG Urine Urobilinogen LESS THAN 2.0 MG/DL Urine Leukocyte Esterase NEG Urine RBC 1 /hpf Urine WBC 1 /hpf Urine Mucus FEW /lpf Microscopic Urinalysis Comment CULT NOT INDICATED Urine Opiates Screen NEG Urine Barbiturates Screen NEG Urine Amphetamines Screen NEG Urine Benzodiazepines Screen POS Urine Cocaine Screen NEG Urine Cannabinoids Screen NEG MDM Medical Record Reviewed: Yes Supervised Visit with MILES: Yes Narrative Course 32-year-old male with history of autism spectrum disorder, was brought in under the Rico act last evening and medically cleared for psychiatric evaluation. Patient has been evaluated by psychiatric staff and deemed psychiatrically stable for discharge back to his assisted living facility. Patient is to follow with his regular primary care physician and psychiatrist. He remains medically stable at time of discharge. Diagnosis Primary Impression: Autism Additional Impression: Intermittent explosive disorder Patient Instructions: General Instructions Disposition: DISCHARGE HOME Condition: Stable Severo Alford Oct 21, 2017 13:30
== END 2017-10-21 14:10 | disposition home or self-care (01) ==
LOC: NEPD 16:56 → NEPJ 10-21 14:10
DX: F84.0 Autistic disorder (principal); F63.81 Intermittent explosive disorder; F20.9 Schizophrenia, unspecified; F31.9 Bipolar disorder, unspecified; Z79.899 Other long term (current) drug therapy
CPT/HCPCS: 80053; 80178; 80307; 81001; 84443; 85025; 96372; 99283; Q0163

== ENCOUNTER 2017-10-22 18:36 | Inpatient (IN) | payer OTHER ==
[~2017-10-22] VITALS: Ht 172.7 cm; Wt 59.1 kg
[~2017-10-22 18:36] MED LIST changes: +LITH150C PO; +LURA1TAB2 PO; +OMEP20TA93 PO; -OMEP40CA2 PO; -QUET1TAB10 PO; -QUET1TAB8 PO; +SERO100T PO; +SERO200T PO; +SERO300T PO
[2017-10-22 18:40] VITALS: BP 111/71; PULSE 93; RESP 16; TEMP 98.2; O2SAT 96
--- NOTE | 2017-10-22 19:45 | PD ---
HPI Chief Complaint: Psychiatric Symptoms Time Seen by Provider: 18:44 Travel History International Travel<30 days: No Contact w/Intl Traveler<30days: No Traveled to known affect area: No History of Present Illness HPI 32-year-old male that presents to the ED for evaluation of Rico act. Patient was Rico acted after apparently he got agitated and started becoming a treat to other residents and staff. Patient suffers from autism and has had episodes of this in the past. Patient was seen here just 2 days ago with similar symptoms. Patient reports being compliant with medications but is hard to get a history from him secondary to his mental illness. He denies any injuries or trauma. He denies any suicidal homicidal ideation. History again is limited because of the patient's mental status. Multiple allergies to different medications. PFSH Past Medical History Arthritis: No Asthma: No Autoimmune Disease: No Bipolar Disorder: Yes Anxiety: Yes Depression: Yes Heart Rhythm Problems: No Cancer: No Cardiovascular Problems: No Chemotherapy: No Chest Pain: No Congestive Heart Failure: No COPD: No Cerebrovascular Accident: No Developmental Delay: Yes (autism, INTELLECTUAL DISABILITY) Diabetes: No Endocrine: No Gastrointestinal Disorders: Yes (CONSTIPATION, REFLUX, GASTRITIS, MILD ESOPHAGITIS) GERD: Yes Genitourinary: No Headaches: No Hiatal Hernia: Yes Heparin Induced Thrombocytopen: No Hypertension: No Immune Disorder: No Implanted Vascular Access Dvce: No Kidney Stones: No Musculoskeletal: No Neurologic: Yes Psychiatric: Yes (Intermittent Explosive and Autism) Reproductive: No Respiratory: No Immunizations Current: Yes Migraines: No Radiation Therapy: No Renal Failure: No Schizophrenia: Yes Seizures: No Sickle Cell Disease: No Sleep Apnea: No Thyroid Disease: No Ulcer: No Past Surgical History Abdominal Surgery: No AICD: No Arteriovenous Shunt: No Cardiac Surgery: No Ear Surgery: No Endocrine Surgery: No Eye Surgery: No Genitourinary Surgery: No Gynecologic Surgery: No Insulin Pump: No Joint Replacement: No Neurologic Surgery: No Pacemaker: No Thoracic Surgery: No Social History Alcohol Use: No Tobacco Use: No Substance Use: No Allergies-Medications (Allergen,Severity, Reaction): Coded Allergies: Sulfa (Sulfonamide Antibiotics) (Unverified Allergy, Severe, 10/20/17) Yeast (Unverified Allergy, Severe, 10/20/17) ipratropium (Unverified Allergy, Severe, 10/20/17) peanut (Verified Allergy, Severe, 10/20/17) soy (Unverified Allergy, Severe, 10/20/17) wheat (Unverified Allergy, Severe, 10/20/17) divalproex sodium (Unverified Allergy, Unknown, 10/20/17) benztropine (Verified Adverse Reaction, Mild, 10/20/17) LOW WHITE PLATELET COUNT AND TREMOR haloperidol (Verified Adverse Reaction, Mild, 10/20/17) TREMOR, LOW WHITE PLATELET COUNT Uncoded Allergies: Cow's Milk (Allergy, Severe, 10/04/11) Reported Meds & Prescriptions Reported Meds & Active Scripts Active Miralax Powder (Polyethylene Glycol 3350 Powder) 17 Gm Powd 17 Gm PO DAILY Mix and dissolve one measuring cap-ful (17 grams) in water or juice. Milk of Magnesia Liq (Magnesium Hydroxide) 400 Mg/5 Ml Susp 30 Ml PO DAILY PRN Triple Antibiotic 3.5-400-5000 (Utgxoqyz-Etbkffihwa-Uemrwmmnl) 3.5 Mg-400 Unit-5 ,000 Unit/Gram Oin 1 Applic TOPICAL DAILY 30 Days [place] Carbonate 300 Mg Tab 300 Mg PO TID 30 Days Gnp Senna Plus 8.6-50 mg (Sennosides-Docusate Sodium) 8.6 Mg-50 Mg Tab 1 Tab PO BID 30 Days Clonazepam 2 Mg Tab 2 Mg PO TID@0700,1500,2000 30 Days Reported Latuda (Lurasidone) 60 Mg Tab 60 Mg PO DAILY@5PM Latuda (Lurasidone) 60 Mg Tab 60 Mg PO DAILY Seroquel (Quetiapine Fumarate) 300 Mg Tab 300 Mg PO HS Seroquel (Quetiapine Fumarate) 200 Mg Tab 200 Mg PO HS Seroquel (Quetiapine Fumarate) 100 Mg Tab 150 Mg PO TID Omeprazole 20 Mg Tab 20 Mg PO DAILY [place] Carbonate 150 Mg Cap 150 Mg PO DAILY Multi-Vitamin Daily (Multiple Vitamin) 1 Tab Tab 1 Tab PO DAILY Review of Systems ROS Limitations: Poor Historian Except as stated in HPI: all other systems reviewed are Neg Physical Exam Narrative GENERAL: SKIN: Warm and dry. HEAD: Atraumatic. Normocephalic. EYES: Pupils equal and round. No scleral icterus. No injection or drainage. ENT: No nasal bleeding or discharge. Mucous membranes pink and moist. Tongue is midline. No uvula deviation. NECK: Trachea midline. No JVD. CARDIOVASCULAR: Regular rate and rhythm. RESPIRATORY: No accessory muscle use. Clear to auscultation. Breath sounds equal bilaterally. GASTROINTESTINAL: Abdomen soft, non-tender, nondistended. Hepatic and splenic margins not palpable. MUSCULOSKELETAL: Extremities without clubbing, cyanosis, or edema. No obvious deformities. Full range of motion of the upper and lower extremities bilaterally. 2+ pulses bilaterally. NEUROLOGICAL: Awake and alert. No obvious cranial nerve deficits. Motor grossly within normal limits. Five out of 5 muscle strength in the arms and legs. Normal speech. PSYCHIATRIC: Appropriate mood and affect; insight and judgment normal. Data Data Last Documented VS Vital Signs Date Time Temp Pulse Resp B/P (MAP) Pulse Ox O2 Delivery O2 Flow Rate FiO2 10/22/17 18:40 98.2 93 16 111/71 (84) 96 Orders Orders Psych Screen (10/22/17 18:44) [facility] Medical Decision Making Medical Screen Exam Complete: Yes Emergency Medical Condition: Yes Medical Record Reviewed: Yes Differential Diagnosis Depression versus suicidal ideation versus anxiety versus adjustment disorder versus mood disorder versus bipolar disorder versus schizophrenia versus paranoid disorder versus psychosis versus substance abuse versus alcohol abuse versus alcohol induced psychosis versus homicidality addition versus cutting versus personality disorder Narrative Course 32-year-old male who presents to the ED for evaluation of psych. Patient was properly examined and was found to have signs and symptoms consistent with psychiatric illness. No significant medical distress. Patient was just here 2 days ago her blood work that was essentially unremarkable. 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 Psych screen was ordered. Patient was medically clear. Okay to be seen by psych. Mental health screening was discussed with the patient. Diagnosis Primary Impression: Autism Kevin Martinez Oct 22, 2017 19:45
[2017-10-23] MEDS ORDERED: OLANZapine IM 10 MG VIAL IM ONE (02:45)
--- NOTE | 2017-10-23 03:03 | PD ---
Physical Exam Date Seen by Provider: October 23, 2017 Time Seen by Provider: 02:39 Narrative GENERAL: This is a well-nourished, well-developed patient, in no apparent distress. SKIN: No rashes, ecchymoses or lesions. Warm and dry. HEAD: Atraumatic. Normocephalic. EYES: PERRL, EOMI, no discharge or injection. No scleral icterus. EARS: Clear NOSE: Nasal turbinates appear normal. THROAT: Mucosa pink and moist. Airway patent. NECK: Trachea midline. supple, moves head freely. LUNGS: Clear to auscultation. CV: Regular in rhythm. ABDOMEN: Soft nontender. EXT: No clubbing cyanosis or edema. Data Data Last Documented VS Vital Signs Date Time Temp Pulse Resp B/P (MAP) Pulse Ox O2 Delivery O2 Flow Rate FiO2 10/22/17 18:40 98.2 93 16 111/71 (84) 96 Orders Orders Psych Screen (10/22/17 18:44) Olanzapine Inj (Zyprexa Inj) (10/23/17 02:45) Restraints Non-Violent ADDY.Q3H (10/23/17 02:59) MDM Medical Record Reviewed: Yes Supervised Visit with MILES: No Differential Diagnosis With MDM: High Differential diagnoses: Schizophrenia, schizoaffective disorder, bipolar, anxiety, depression, adjustment reaction, mood disorder NOS, ODD, depressive disorder NOS, dementia, dementia with agitation, psychosis NOS, substance induced mood disorder, DMDD, Asperger syndrome, infection,electrolyte abnormality, malingering. Narrative Course Mental health screening discussed with the patient. Psychiatric screen ordered. The patient had been seen earlier this evening and medically cleared by the daytime provider. I was asked to follow-up on labs. The patient during his stay here in the ER became increasingly agitated. The patient was banging with his hands and there was concern that he would start to head-banging afterwards. I have examined the patient. He is placed in soft restraints, seclusion as well as medicated with Zyprexa 10 mg IM. The patient will be de-escalated and taken out of restraints per protocol. Diagnosis Primary Impression: Autism Additional Impression: Medical clearance for psychiatric admission Condition: Stable Paulino Vasquez October 23, 2017 03:03
[2017-10-23 08:35] VITALS: BP 121/78; PULSE 76; RESP 16; TEMP 98.3; O2SAT 100
[2017-10-23] MEDS ORDERED: ALUMINUM/MAGNESIUM/SIMETH 30 ML CUP PO PRN (11:00)
[2017-10-23] MEDS ORDERED: ACETAMINOPHEN 325 MG TAB PO PRN (11:00)
[2017-10-23] MEDS ORDERED: MAGNESIUM HYDROXIDE SUSP 30 ML CUP PO PRN (11:00)
--- NOTE | 2017-10-23 11:34 | PD ---
History of Present Illness Chief Complaint: Psychiatric Symptoms Time Seen by Provider: 09:20 Travel History International Travel<30 Days: No Contact w/Intl Traveler<30days: No Known affected area: No Legal Status Legal Status: Rico Act Rico Act Signed By: Jairo Singh Rico Act Comment: 2017 @ 1750 History of Present Illness: This is a 32 year old single, male who presents under a Rico act to this facility for reportedly being aggressive with staff at his [facility], as well as causing self-harm. Patient is well-known to this facility and his last inpatient admission was about a month ago. Reviewed electronic medical record, labs, discuss case with staff. Patient was observed in his room striking himself in the chest and pacing around the room smacking wall and talking to himself. Patient is diagnosed with ASD and intermittent explosive disorder. His mood is irritable and his affect is labile. Patient presents quite childlike. He is a poor historian. His memory is impaired as he repeatedly asks the same questions over and over. He is difficult to redirect. Patient does have a reported history of becoming quite violent and aggressive with himself and others. Staff reported that patient had to be placed in four-point locked restraints last night. Seeing as he was striking his chest and slapping the wall patient was administered Thorazine IM. He remains quite intrusive however, he does not appear to be as aggressive before being given the ETO. [facility] Past Medical History Arthritis: No Asthma: No Autoimmune Disease: No Bipolar Disorder: Yes Anxiety: Yes Depression: Yes Heart Rhythm Problems: No Cancer: No Cardiovascular Problems: No Chemotherapy: No Chest Pain: No Congestive Heart Failure: No COPD: No Cerebrovascular Accident: No Developmental Delay: Yes (autism, INTELLECTUAL DISABILITY) Diabetes: No Endocrine: No Gastrointestinal Disorders: Yes (CONSTIPATION, REFLUX, GASTRITIS, MILD ESOPHAGITIS) GERD: Yes Genitourinary: No Headaches: No Hiatal Hernia: Yes Heparin Induced Thrombocytopen: No Hypertension: No Immune Disorder: No Implanted Vascular Access Dvce: No Kidney Stones: No Musculoskeletal: No Neurologic: Yes Psychiatric: Yes (Intermittent Explosive and Autism) Reproductive: No Respiratory: No Immunizations Current: Yes Migraines: No Radiation Therapy: No Renal Failure: No Schizophrenia: Yes Seizures: No Sickle Cell Disease: No Sleep Apnea: No Thyroid Disease: No Ulcer: No Past Surgical History Abdominal Surgery: No AICD: No Arteriovenous Shunt: No Cardiac Surgery: No Ear Surgery: No Endocrine Surgery: No Eye Surgery: No Genitourinary Surgery: No Gynecologic Surgery: No Insulin Pump: No Joint Replacement: No Neurologic Surgery: No Pacemaker: No Thoracic Surgery: No Psychiatric History Psychiatric History Multiple inpatient admissions. ASD and IED. Hx Psychiatric Treatment: Patient currently sees Dr. Vásquez as an outpatient. It is reported he is medication compliant. History of Inpatient Treatment: Yes Guns or firearms in home: No Social History Hx Alcohol Use: No Hx Tobacco Use: No Hx Substance Use: No Hx of Substance Use Treatment: No Allergies-Medications (Allergen,Severity, Reaction): Coded Allergies: Sulfa (Sulfonamide Antibiotics) (Unverified Allergy, Severe, 10/20/17) Yeast (Unverified Allergy, Severe, 10/20/17) ipratropium (Unverified Allergy, Severe, 10/20/17) peanut (Verified Allergy, Severe, 10/20/17) soy (Unverified Allergy, Severe, 10/20/17) wheat (Unverified Allergy, Severe, 10/20/17) divalproex sodium (Unverified Allergy, Unknown, 10/20/17) benztropine (Verified Adverse Reaction, Mild, 10/20/17) LOW WHITE PLATELET COUNT AND TREMOR haloperidol (Verified Adverse Reaction, Mild, 10/20/17) TREMOR, LOW WHITE PLATELET COUNT Uncoded Allergies: Cow's Milk (Allergy, Severe, 10/04/11) Reported Meds & Prescriptions Reported Meds & Active Scripts Active Miralax Powder (Polyethylene Glycol 3350 Powder) 17 Gm Powd 17 Gm PO DAILY Mix and dissolve one measuring cap-ful (17 grams) in water or juice. Milk of Magnesia Liq (Magnesium Hydroxide) 400 Mg/5 Ml Susp 30 Ml PO DAILY PRN Triple Antibiotic 3.5-400-5000 (Mqjzxbwz-Rutaemyxzv-Albdribzv) 3.5 Mg-400 Unit-5 ,000 Unit/Gram Oin 1 Applic TOPICAL DAILY 30 Days Urich Carbonate 300 Mg Tab 300 Mg PO TID 30 Days Gnp Senna Plus 8.6-50 mg (Sennosides-Docusate Sodium) 8.6 Mg-50 Mg Tab 1 Tab PO BID 30 Days Clonazepam 2 Mg Tab 2 Mg PO TID@0700,1500,2000 30 Days Reported Latuda (Lurasidone) 60 Mg Tab 60 Mg PO DAILY@5PM Latuda (Lurasidone) 60 Mg Tab 60 Mg PO DAILY Seroquel (Quetiapine Fumarate) 300 Mg Tab 300 Mg PO HS Seroquel (Quetiapine Fumarate) 200 Mg Tab 200 Mg PO HS Seroquel (Quetiapine Fumarate) 100 Mg Tab 150 Mg PO TID Omeprazole 20 Mg Tab 20 Mg PO DAILY Urich Carbonate 150 Mg Cap 150 Mg PO DAILY Multi-Vitamin Daily (Multiple Vitamin) 1 Tab Tab 1 Tab PO DAILY Mental Status Examination Appearance: Appropriate Consciousness: Alert Orientation: Person, Place (At least) Motor Activity: Normal gait Speech: Rapid Language: Perseveration Fund of Knowledge: Poor Attention and Concentration: Inadequate Memory: Impaired Mood: Other (Irritable initially after medication more appropriate) Affect: Other (Again, irritably initially after medication were euthymic) Thought Process & Associations: Goal directed, Loose associations Thought Content: Other (Difficult to assess) Hallucination Type: Other (Difficult to assess) Delusion Type: Other (Difficult to assess) Suicidal Ideation: No Suicidal Plan: No Suicidal Intention: No Homicidal Ideation: Yes (Statements made to [facility] staff threatening to harm them) Homicidal Plan: No Homicidal Intention: No Insight: Poor Judgment: Poor MDM Medical Decision Making Medical Record Reviewed: Yes Assessment/Plan This is a 32-year-old single, male who presents under Rico act for being aggressive and threatening staff at his [facility]. Patient has diagnoses of ASD and IED. He has been treated at this facility multiple times in the past. Upon arriving wants to donate patient had to be restrained. Today , while he was calmer he was observed by this provider hitting himself in the chest and slapping at the wall. Patient was provided with an ETO due to his increasing agitation. Given his past and his propensity to harm others and himself, as well as upon consultation with Dr. Maher, this patient will be admitted to the 2700 unit for further evaluation and treatment as deemed necessary. Request HC Surrog/Guard Advoc?: Yes Orders Orders Psych Screen (10/22/17 18:44) Olanzapine Inj (Zyprexa Inj) (10/23/17 02:45) Restraints Non-Violent ADDY.Q3H (10/23/17 02:59) Diet Regular Basic (10/23/17 Breakfast) Chlorpromazine Inj (Thorazine Inj) (10/23/17 09:15) Admit Order (Ed Use Only) (10/23/17 ) Diet Regular Basic (10/23/17 Dinner) Chlorpromazine Inj (Thorazine Inj) (10/23/17 10:45) Admit To Inpatient Psych (10/23/17 ) Code Status (10/23/17 10:54) Vital Signs (Adult) ADDY.Q12H.E (10/23/17 10:54) Activity Oob Ad Christy (10/23/17 10:54) Level Of Observation (Psych) (10/23/17 10:54) Acetaminophen (Tylenol) (10/23/17 11:00) Magnesium Hydroxide Liq (Milk Of Magnesi (10/23/17 11:00) Al-Mag Hy-Si 40-40-4 Mg/Ml Liq (Mag-Al P (10/23/17 11:00) Basic Metabolic Panel (Bmp) (10/24/17 06:00) Lipid Profile (10/24/17 06:00) Hemoglobin (Hgb) A1c (10/24/17 06:00) Electrocardiogram (10/24/17 ) Results Vital Signs Date Time Temp Pulse Resp B/P (MAP) Pulse Ox O2 Delivery O2 Flow Rate FiO2 10/23/17 08:35 98.3 76 16 121/78 (92) 100 Room Air 10/22/17 18:40 98.2 93 16 111/71 (84) 96 Diagnosis Primary Impression: Intermittent explosive disorder Additional Impression: Autism Admitting Information Admitting Physician Requests: Admit Condition: Stable Problem Qualifiers Mihaela Knapp October 23, 2017 11:34
[2017-10-23] MEDS ORDERED: MI-A80CH (13:01)
[2017-10-23] MEDS ORDERED: MAPA500T PO (13:13)
[2017-10-23] MEDS ORDERED: Q TUSSIN PO (13:13)
[2017-10-23 14:00] VITALS: BP 102/68; PULSE 81; RESP 18
[2017-10-23] MEDS ORDERED: PILL SPLITTER OTHER PRN (15:00)
[2017-10-23] MEDS: PANTOPRAZOLE SOD 20 MG DELAYED RELEASE TAB PO SCH (16:03)
[2017-10-23] MEDS: clonazePAM 1 MG TAB PO SCH ×2 (16:03→20:32)
[2017-10-23] MEDS ORDERED: LURASIDONE 40 MG TAB PO SCH (17:00)
[2017-10-23] MEDS: QUEtiapine FUMARATE 100 MG TAB PO SCH (17:22)
[2017-10-23] MEDS: LITHIUM CARBONATE 300 MG TAB PO SCH (17:23)
[2017-10-23 18:00] VITALS: BP 104/59; PULSE 85; RESP 18; TEMP 97.3; O2SAT 99
[2017-10-23] MEDS ORDERED: QUEtiapine FUMARATE 200 MG TAB PO SCH (21:00)
[2017-10-23] MEDS ORDERED: QUEtiapine FUMARATE 300 MG TAB PO SCH (21:00)
[2017-10-24 06:08] VITALS: BP 90/52; PULSE 80; RESP 18; TEMP 98.6; O2SAT 98
[2017-10-24] MEDS: clonazePAM 1 MG TAB PO SCH ×3 (06:19→20:32)
[2017-10-24] MEDS: PANTOPRAZOLE SOD 20 MG DELAYED RELEASE TAB PO SCH (08:16)
[2017-10-24] MEDS: QUEtiapine FUMARATE 100 MG TAB PO SCH ×3 (08:16→18:05)
[2017-10-24] MEDS: LITHIUM CARBONATE 300 MG TAB PO SCH ×3 (08:16→18:05)
[2017-10-24] MEDS ORDERED: LITHIUM CARBONATE 300 MG TAB PO SCH (09:00)
[2017-10-24 09:29] LABS: BICARBONATE 26.7 MEQ/L (21.0-32.0); BLOOD UREA NITROGEN 6 MG/DL (7-18); CALCIUM 8.7 MG/DL (8.5-10.1); CHLORIDE 106 MEQ/L (98-107); CREATININE 1.05 MG/DL (0.60-1.30); GLOMERULAR FILTRATION RATE 81 ML/MIN (>89); GLUCOSE,RANDOM 127 MG/DL (74-106); SODIUM (NA) 139 MEQ/L (136-145)
[2017-10-24 09:30] LABS: CHOLESTEROL 128 MG/DL (120-200); TRIGLYCERIDES 127 MG/DL (42-150)
[2017-10-24 09:32] LABS: CHOLESTEROL/ HDL RATIO 2.78 RATIO; LDL CHOLESTEROL 57 MG/DL (0-99)
[2017-10-24] MEDS ORDERED: GUAI100S7 PO (10:26)
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
[2017-10-24] MEDS ORDERED: BENZTROPINE MESYLATE 1 MG TAB PO PRN (12:30)
[2017-10-24] MEDS ORDERED: BENZTROPINE MESYLATE 2 MG/2 ML VIAL IM PRN (12:30)
[2017-10-24] MEDS ORDERED: LORazepam 2 MG/ML VIAL IM PRN (12:30)
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
[2017-10-24 15:43] LABS: HEMOGLOBIN A1C 4.8 % (4.3-6.0)
[2017-10-24 17:05] VITALS: BP 117/63; PULSE 107; RESP 18; TEMP 98.3; O2SAT 97
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
[2017-10-24] MEDS: QUEtiapine FUMARATE 300 MG TAB PO SCH (20:32)
[2017-10-25 06:06] VITALS: BP 115/69; PULSE 84; RESP 16; TEMP 97.8; O2SAT 99
[2017-10-25] MEDS: clonazePAM 1 MG TAB PO SCH ×3 (06:44→20:57)
[2017-10-25 06:57] LABS: BICARBONATE 28.1 MEQ/L (21.0-32.0); CALCIUM 8.8 MG/DL (8.5-10.1); CREATININE 0.92 MG/DL (0.60-1.30)
--- NOTE | 2017-10-25 08:20 | HHI.PYPN ---
Subjective Chief Complaint: Behavioral disturbance in setting of autism Remarks Patient seen and examined with nurse. Chart reviewed. Case discussed with nursing staff. Patient continues to have behavioral outbursts, punching at the wall shortly before my interview with him for example. There is no sign of trauma on the hand, nor does he have any pain complaints. He remains quite childlike. He is discharge focused. No psychotic symptoms. No side effects from medications. No physical complaints. Review of Systems ROS Limitations: Poor Historian Except as stated in HPI: all other systems reviewed are Neg Mental Status Examination Appearance: Disheveled Consciousness: Alert Orientation: Person, Place Motor Activity: Normal gait Speech: Rapid Language: Perseveration Fund of Knowledge: Poor Attention and Concentration: Inadequate Memory: Impaired Mood: Other (Calm at time of evaluation) Affect: Other (Remains quite childlike) Thought Process & Associations: Tangential Thought Content: Preoccupations Hallucination Type: None Delusion Type: None Suicidal Ideation: No (No SI voiced) Homicidal Ideation: No (No HI voiced) Insight: Poor Judgment: Poor Results Labs Test 10/24/17 08:33 10/25/17 05:48 Blood Urea Nitrogen 6 MG/DL 8 MG/DL Creatinine 1.05 MG/DL 0.92 MG/DL Random Glucose 127 MG/DL 88 MG/DL Calcium Level 8.7 MG/DL 8.8 MG/DL Sodium Level 139 MEQ/L 138 MEQ/L Potassium Level 3.8 MEQ/L 3.9 MEQ/L Chloride Level 106 MEQ/L 104 MEQ/L Carbon Dioxide Level 26.7 MEQ/L 28.1 MEQ/L Anion Gap 6 MEQ/L 6 MEQ/L Estimat Glomerular Filtration Rate 81 ML/MIN 94 ML/MIN Hemoglobin A1c 4.8 % Triglycerides Level 127 MG/DL Cholesterol Level 128 MG/DL LDL Cholesterol 57 MG/DL HDL Cholesterol 46.0 MG/DL Cholesterol/HDL Ratio 2.78 RATIO Thyroid Stimulating Hormone 3rd Gen 1.800 uIU/ML [place] Level 0.6 MEQ/L Labs reviewed. [place] level noted. Vitals/IOs Vital Signs Date Time Temp Pulse Resp B/P (MAP) Pulse Ox O2 Delivery O2 Flow Rate FiO2 10/25/17 06:06 97.8 84 16 115/69 (84) 99 10/23/17 08:35 Room Air Assessment & Plan Problem List: (1) Intermittent explosive disorder ICD Codes: F63.81 - Intermittent explosive disorder Status: Acute (2) Autism ICD Codes: F84.0 - Autism Status: Acute Assessment & Plan Titrate lithium to 450mg TID to target behaviors in setting of autism. Plan to recheck a level over weekend. Continue other psychotropics as ordered. Continue to monitor on the inpatient unit. Continue other care as ordered. Justification for Cont. Inpt. Med changes. Risk for decompensation in less restrictive setting. Discharge Planning Pending psychiatric stabilization. Request HC Surrog/Guard Advoc?: Yes Perry Grover MD October 25, 2017 08:20
[2017-10-25] MEDS: PANTOPRAZOLE SOD 40 MG DELAYED RELEASE TAB PO SCH (08:37)
[2017-10-25] MEDS: LITHIUM CARBONATE 300 MG TAB PO SCH ×3 (08:38→18:00)
[2017-10-25] MEDS: QUEtiapine FUMARATE 100 MG TAB PO SCH ×3 (08:39→18:00)
[2017-10-25] MEDS: LORazepam 1 MG TAB PO PRN (08:48)
--- NOTE | 2017-10-25 15:54 | EKG ---
Date Performed: 10/24/2017 Time Performed: 14:09:07 PTAGE: 32 years EKG: SINUS TACHYCARDIA BORDERLINE LEFT AXIS DEVIATION ABNORMAL RHYTHM ECG PREVIOUS TRACING : 07/19/2017 13.08 Nonspecific anterior T-wave changes. Since the prior tracin g, the anterolateral T-wave changes are new but nonspecific. Clinical correlation will be necessary t o assess for significance. DOCTOR: Octavia Ramos Interpretating Date/Time 10/25/2017 15:53:12
[2017-10-25 17:00] VITALS: BP 97/67; PULSE 105; RESP 18; TEMP 97; O2SAT 100
[2017-10-25] MEDS: QUEtiapine FUMARATE 300 MG TAB PO SCH (20:57)
[2017-10-26 05:53] VITALS: BP 103/66; PULSE 95; RESP 16; TEMP 98.2; O2SAT 98
[2017-10-26] MEDS: clonazePAM 1 MG TAB PO SCH ×3 (06:35→20:52)
[2017-10-26] MEDS: PANTOPRAZOLE SOD 40 MG DELAYED RELEASE TAB PO SCH (08:56)
[2017-10-26] MEDS: LITHIUM CARBONATE 300 MG TAB PO SCH ×3 (08:56→18:38)
[2017-10-26] MEDS: QUEtiapine FUMARATE 100 MG TAB PO SCH ×3 (08:56→18:38)
--- NOTE | 2017-10-26 16:08 | HHI.PYPN ---
Subjective Chief Complaint: Behavioral disturbance in setting of autism Remarks Patient seen and examined. Chart reviewed. Case discussed with nursing staff who reports patient seems calmer today. On my examination today, I find the patient in his room. Less repetitive questioning today. No threats of aggression or other problematic behaviors noted. Denies SI or HI. No side effects from medications. No physical complaints. Review of Systems Except as stated in HPI: all other systems reviewed are Neg Mental Status Examination Appearance: Disheveled Consciousness: Alert Orientation: Person, Place Motor Activity: Other (No motor abnormalities noted) Speech: Unremarkable Language: Perseveration (Decreased) Fund of Knowledge: Poor Attention and Concentration: Inadequate Memory: Impaired Mood: Other (Calm) Affect: Blunt (Childlike) Thought Process & Associations: Tangential Thought Content: Preoccupations Hallucination Type: None Delusion Type: None Suicidal Ideation: No Homicidal Ideation: No Insight: Poor Judgment: Poor Results Labs Labs reviewed Vitals/IOs Vital Signs Date Time Temp Pulse Resp B/P (MAP) Pulse Ox O2 Delivery O2 Flow Rate FiO2 10/26/17 05:53 98.2 95 16 103/66 (78) 98 10/23/17 08:35 Room Air Assessment & Plan Problem List: (1) Intermittent explosive disorder ICD Codes: F63.81 - Intermittent explosive disorder Status: Acute (2) Autism ICD Codes: F84.0 - Autism Status: Acute Assessment & Plan Continue increased dose of lithium as ordered with plans to check a lithium level after the weekend. Continue other psychotropics as ordered. Continue to monitor on the inpatient unit. Continue other medications and care as ordered. Justification for Cont. Inpt. Risk for decompensation in less restrictive environment. Discharge Planning Pending psychiatric stabilization Request HC Surrog/Guard Advoc?: Yes Perry Grover MD October 26, 2017 16:08
[2017-10-26 16:39] VITALS: PULSE 110; RESP 16; TEMP 97.9; O2SAT 100
[2017-10-26] MEDS: QUEtiapine FUMARATE 300 MG TAB PO SCH (20:52)
[2017-10-27] MEDS: clonazePAM 1 MG TAB PO SCH ×3 (06:23→20:02)
[2017-10-27] MEDS: PANTOPRAZOLE SOD 40 MG DELAYED RELEASE TAB PO SCH (08:29)
[2017-10-27] MEDS: QUEtiapine FUMARATE 100 MG TAB PO SCH ×3 (08:29→18:00)
[2017-10-27] MEDS: LITHIUM CARBONATE 300 MG TAB PO SCH ×3 (08:29→18:00)
--- NOTE | 2017-10-27 15:13 | HHI.PYPN ---
Subjective Chief Complaint: Behavioral disturbance in setting of autism Remarks Patient was seen and case discussed with nursing. Patient received an ETO last night for aggressive behavior. Today he has not had any outbursts. Appears less perseverant behavior has improved. Largely seclusive to self Mental Status Examination Appearance: Disheveled Consciousness: Alert Orientation: Person, Place Motor Activity: Other (No motor abnormalities noted) Speech: Unremarkable Language: Perseveration (Decreased) Fund of Knowledge: Poor Attention and Concentration: Inadequate Memory: Impaired Mood: Other (Calm) Affect: Blunt (Childlike) Thought Process & Associations: Tangential Thought Content: Preoccupations Hallucination Type: None Delusion Type: None Suicidal Ideation: No Homicidal Ideation: No Insight: Poor Judgment: Poor Results Vitals/IOs Vital Signs Date Time Temp Pulse Resp B/P (MAP) Pulse Ox O2 Delivery O2 Flow Rate FiO2 10/26/17 16:39 97.9 110 16 100 10/26/17 05:53 103/66 (78) 10/23/17 08:35 Room Air Assessment & Plan Problem List: (1) Intermittent explosive disorder ICD Codes: F63.81 - Intermittent explosive disorder Status: Acute (2) Autism ICD Codes: F84.0 - Autism Status: Acute Assessment & Plan Continue current treatment plan Justification for Cont. Inpt. Patient would decompensate in a less restrictive setting Request HC Surrog/Guard Advoc?: Yes Beto Hancock DO October 27, 2017 15:13
[2017-10-27 18:14] VITALS: BP 103/73; PULSE 88; RESP 18; TEMP 97.2; O2SAT 98
[2017-10-27] MEDS: QUEtiapine FUMARATE 300 MG TAB PO SCH (21:40)
[2017-10-28 06:40] VITALS: BP 121/80; PULSE 87; RESP 17; TEMP 97.3; O2SAT 100
[2017-10-28] MEDS: clonazePAM 1 MG TAB PO SCH ×3 (06:41→20:33)
[2017-10-28] MEDS: LITHIUM CARBONATE 300 MG TAB PO SCH ×3 (08:48→18:00)
[2017-10-28] MEDS: QUEtiapine FUMARATE 100 MG TAB PO SCH ×3 (08:48→18:00)
[2017-10-28] MEDS: PANTOPRAZOLE SOD 40 MG DELAYED RELEASE TAB PO SCH (08:48)
[2017-10-28 09:52] LABS: BICARBONATE 29.5 MEQ/L (21.0-32.0); CALCIUM 9.6 MG/DL (8.5-10.1); CREATININE 1.05 MG/DL (0.60-1.30)
--- NOTE | 2017-10-28 14:02 | HHI.PYPN ---
Subjective Chief Complaint: Behavioral disturbance in setting of autism Remarks Patient was seen and case discussed with nursing. Patient seen resting in his room. No outbursts today. Compliant with his medications. Mental Status Examination Appearance: Disheveled Consciousness: Alert Orientation: Person, Place Motor Activity: Other (No motor abnormalities noted) Speech: Unremarkable Language: Perseveration (Decreased) Fund of Knowledge: Poor Attention and Concentration: Inadequate Memory: Impaired Mood: Other (Calm) Affect: Blunt (Childlike) Thought Process & Associations: Tangential Thought Content: Preoccupations Hallucination Type: None Delusion Type: None Suicidal Ideation: No Homicidal Ideation: No Insight: Poor Judgment: Poor Results Labs Test 10/28/17 08:50 Blood Urea Nitrogen 10 MG/DL Creatinine 1.05 MG/DL Random Glucose 73 MG/DL Calcium Level 9.6 MG/DL Sodium Level 138 MEQ/L Potassium Level 3.7 MEQ/L Chloride Level 101 MEQ/L Carbon Dioxide Level 29.5 MEQ/L Anion Gap 8 MEQ/L Estimat Glomerular Filtration Rate 81 ML/MIN [place] Level 1.0 MEQ/L Vitals/IOs Vital Signs Date Time Temp Pulse Resp B/P (MAP) Pulse Ox O2 Delivery O2 Flow Rate FiO2 10/28/17 06:40 97.3 87 17 121/80 (94) 100 Assessment & Plan Problem List: (1) Intermittent explosive disorder ICD Codes: F63.81 - Intermittent explosive disorder Status: Acute (2) Autism ICD Codes: F84.0 - Autism Status: Acute Assessment & Plan Continue current treatment plan Justification for Cont. Inpt. Patient would decompensate in a less restrictive setting Request HC Surrog/Guard Advoc?: Yes Beto Hancock DO October 28, 2017 14:02
[2017-10-28 17:10] VITALS: BP 100/64; PULSE 78; RESP 16; TEMP 97.5; O2SAT 99
[2017-10-28] MEDS: QUEtiapine FUMARATE 300 MG TAB PO SCH (20:33)
[2017-10-28] MEDS: LORazepam 1 MG TAB PO PRN (20:33)
[2017-10-29] MEDS: clonazePAM 1 MG TAB PO SCH ×3 (06:04→20:09)
[2017-10-29 07:09] VITALS: BP 104/65; PULSE 80; RESP 17; TEMP 97.7; O2SAT 98
[2017-10-29] MEDS: PANTOPRAZOLE SOD 40 MG DELAYED RELEASE TAB PO SCH (08:57)
[2017-10-29] MEDS: QUEtiapine FUMARATE 100 MG TAB PO SCH ×3 (08:57→18:05)
[2017-10-29] MEDS: LITHIUM CARBONATE 300 MG TAB PO SCH ×3 (08:57→18:05)
[2017-10-29] MEDS: LORazepam 1 MG TAB PO PRN (09:25)
--- NOTE | 2017-10-29 10:12 | HHI.PYPN ---
Subjective Chief Complaint: Behavioral disturbance in setting of autism Remarks Patient seen and examined with nurse. Chart reviewed. Case discussed with nursing staff who reports patient slept well overnight. Less aggressive behavior over the weekend. Case discussed with counselor. On my examination today, the patient does indeed seem somewhat calmer. Less repetitive questioning noted versus admission. He denies any SI or HI. Denies any AVH. No side effects from medications. No physical complaints. Following my departure from the unit, nurse informs me that the patient was pounding on the wall and running down the block punching at the air. He was able to be redirected and did not require an ETO. Prior to patient's behavioral outburst I had spoken with patient's mother over the phone. We discuss med changes so far and patient's progress on the unit. We discuss possible return to patient's facility later in the week. I spent ~ 20min in consultation with patient's mother. Review of Systems ROS Limitations: Poor Historian Except as stated in HPI: all other systems reviewed are Neg Mental Status Examination Appearance: Disheveled Consciousness: Alert Orientation: Person, Place Motor Activity: Other (No abnormal motor movements noted) Speech: Unremarkable Language: Perseveration (Decreased versus admission) Fund of Knowledge: Poor Attention and Concentration: Inadequate Memory: Impaired Mood: Other (Calm) Affect: Other (Somewhat blunted at time of my evaluation but still labile overall) Thought Process & Associations: Circumstantial Thought Content: Preoccupations Hallucination Type: None Delusion Type: None Suicidal Ideation: No Homicidal Ideation: No Insight: Poor Judgment: Poor Results Labs Labs reviewed. [place] level on higher dose of lithium 1.0. Vitals/IOs Vital Signs Date Time Temp Pulse Resp B/P (MAP) Pulse Ox O2 Delivery O2 Flow Rate FiO2 10/29/17 07:09 97.7 80 17 104/65 (78) 98 Assessment & Plan Problem List: (1) Intermittent explosive disorder ICD Codes: F63.81 - Intermittent explosive disorder Status: Acute (2) Autism ICD Codes: F84.0 - Autism Status: Acute Assessment & Plan Titrate Seroquel to 200mg TID and 600mg qHS. I have reviewed with patient's mother that his dose is above recommended maximum dose but within range used in clinical practice, and patient seems to be tolerating this agent well without side effects. Continue to monitor on the inpatient unit. Continue other medications and care as ordered. Justification for Cont. Inpt. Med changes. Risk for decompensation in less restrictive environment. Discharge Planning Pending psychiatric stabilization Request HC Surrog/Guard Advoc?: Yes Perry Grover MD October 29, 2017 10:12
[2017-10-29 17:07] VITALS: BP 106/78; PULSE 78; RESP 18; TEMP 97.4; O2SAT 98
[2017-10-29] MEDS: DOCUSATE SODIUM 50 MG/SENNA 8.6 MG TAB PO SCH (20:09)
[2017-10-29] MEDS: QUEtiapine FUMARATE 300 MG TAB PO SCH (20:09)
[2017-10-30 06:11] VITALS: BP 97/58; PULSE 71; RESP 18; TEMP 97.2; O2SAT 97
[2017-10-30] MEDS: PANTOPRAZOLE SOD 40 MG DELAYED RELEASE TAB PO SCH (09:36)
[2017-10-30] MEDS: QUEtiapine FUMARATE 100 MG TAB PO SCH ×3 (09:36→18:03)
[2017-10-30] MEDS: DOCUSATE SODIUM 50 MG/SENNA 8.6 MG TAB PO SCH ×2 (09:36→20:47)
[2017-10-30] MEDS: LITHIUM CARBONATE 300 MG TAB PO SCH ×3 (09:36→18:03)
--- NOTE | 2017-10-30 09:57 | HHI.PYPN ---
Subjective Chief Complaint: Behavioral disturbance in setting of autism Remarks Patient seen and examined with counselor and nurse. Chart reviewed. Case discussed with nursing staff. Significant behavioral disturbance yesterday but behaviors are improved today with medication adjustments per nursing staff. On my examination today, the patient is in his room. I note that he has organized magazines and other reading materials in a electric distribution checker-board pattern on his bed. He is calm with minimal repetitive questioning. No evidence of aggression or behavioral disturbance. No mood symptoms or psychotic material verbalized. No side effects from medications. No physical complaints. Patient is hopeful for discharge from the hospital soon, and I have emphasized that this is dependent on him remaining in behavioral control. Checked in with the nurse this afternoon by phone, and patient reportedly continues to have a good day today. Review of Systems ROS Limitations: Poor Historian Except as stated in HPI: all other systems reviewed are Neg Mental Status Examination Appearance: Other (Fair) Consciousness: Alert Orientation: Person, Place Motor Activity: Other (No motor abnormalities noted) Speech: Unremarkable Language: Perseveration (Decreased versus admission) Fund of Knowledge: Poor Attention and Concentration: Inadequate Memory: Impaired Mood: Other (Calm) Affect: Blunt Thought Process & Associations: Circumstantial Thought Content: Preoccupations Hallucination Type: None Delusion Type: None Suicidal Ideation: No (No SI voiced) Homicidal Ideation: No (No HI voiced) Insight: Poor Judgment: Poor Results Labs Labs reviewed Vitals/IOs Vital Signs Date Time Temp Pulse Resp B/P (MAP) Pulse Ox O2 Delivery O2 Flow Rate FiO2 10/30/17 06:11 97.2 71 18 97/58 (71) 97 Assessment & Plan Problem List: (1) Intermittent explosive disorder ICD Codes: F63.81 - Intermittent explosive disorder Status: Acute (2) Autism ICD Codes: F84.0 - Autism Status: Acute Assessment & Plan Continue current psychotropics as ordered. Given significant behavioral issues yesterday, I would like to see patient remained in good behavioral control overnight tonight before contemplating discharge back to facility. Continue to monitor on the inpatient unit. Continue other medications and care as ordered. Justification for Cont. Inpt. Risk for decompensation in less restrictive environment. Discharge Planning Possible discharge back to facility tomorrow, Sunday. Request HC Surrog/Guard Advoc?: Yes Perry Grover MD October 30, 2017 09:57
[2017-10-30] MEDS: clonazePAM 1 MG TAB PO SCH ×2 (15:00→20:47)
[2017-10-30 18:31] VITALS: BP 115/78; PULSE 71; RESP 18; TEMP 97.2; O2SAT 98
[2017-10-30] MEDS: QUEtiapine FUMARATE 300 MG TAB PO SCH (20:47)
[2017-10-31] MEDS: clonazePAM 1 MG TAB PO SCH ×2 (06:09→15:16)
[2017-10-31 06:30] VITALS: BP 108/77; PULSE 82; RESP 18; TEMP 97.6; O2SAT 98
[2017-10-31] MEDS ORDERED: QUET1TAB8 PO (09:21)
[2017-10-31] MEDS ORDERED: LITH300T3 PO (09:21)
[2017-10-31] MEDS ORDERED: QUET1TAB10 PO (09:21)
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
[2017-10-31] MEDS: QUEtiapine FUMARATE 100 MG TAB PO SCH ×2 (09:30→15:16)
[2017-10-31] MEDS: PANTOPRAZOLE SOD 40 MG DELAYED RELEASE TAB PO SCH (09:30)
[2017-10-31] MEDS: LITHIUM CARBONATE 300 MG TAB PO SCH ×2 (09:30→15:17)
[2017-10-31] MEDS: DOCUSATE SODIUM 50 MG/SENNA 8.6 MG TAB PO SCH (09:30)
== END 2017-10-31 16:00 | DRG 883 ==
LOC: NEPJ 18:36 → NEDA 10-23 09:40 → H270 10-23 15:32
PROVIDERS: ADMIT Psychiatry & Neurology Psychiatry; ATTEND Psychiatry & Neurology Psychiatry
DX: F63.81 Intermittent explosive disorder (principal); Z78.1 Physical restraint status; F84.0 Autistic disorder; K21.9 Gastro-esophageal reflux disease without esophagitis; F31.9 Bipolar disorder, unspecified; F41.9 Anxiety disorder, unspecified; K44.9 Diaphragmatic hernia without obstruction or gangrene; F79 Unspecified intellectual disabilities
CPT/HCPCS: 70150; 80048; 80061; 80178; 83036; 84443; 93005; 96372; J2060; J3230